=== PATIENT | female | born 1940 | race Caucasian/White ===

== ENCOUNTER 2021-02-03 12:56 | Inpatient (IN) | payer MEDICARE, OTHER, SELFPAY ==
[2021-02-03] VITALS (46 sets, daily range): BP systolic 101–172; BP diastolic 45–108; PULSE 57–75; RESP 12–23; TEMP 36.5–36.7; O2SAT 92–99
--- NOTE | 2021-02-03 13:30 | RT.EKG_ITS ---
APPROVED REPORT Exam: Resting ECG Reason for Exam: weakness Patient Location: E HR:64 bpm ECG Measurements Heart Rate 64 AXIS UT 202 P 45 QRSd 94 QRS 21 QT 430 T 72 QTc 442 Conclusion Sinus rhythm...normal P axis, V-rate 60- 99 Atrial premature complex...SV complex w/ short R-R interval
--- NOTE | 2021-02-03 13:30 | DI.CT_ITS ---
Exam(s) CT HEAD WO EXAM: CT BRAIN NECK CTA CLINICAL HISTORY: hx of cva, weakness TECHNIQUE: COMPARISON: No exams were available for comparison FINDINGS: Noncontrast cranial CT was performed. No prior scans available for comparison. There is moderate to severe generalized cerebral atrophy and there are areas of encephalomalacia right frontal right temp oral and left frontal lobe consistent with old infarcts. There is an area of apparent acute hemorrhage with somewhat irregular margins which lies to the left of the falx in the white matter superior to the left lateral ventricle, this measures 33 x 17 millime ters in diameter transaxial imaging. There is slight associated mass effect. No intraventricular he morrhage seen. No additional areas of intracranial hemorrhage. The orbital and temporal bone structures appear intact. Visualized mastoid air cells and paranasal s inuses appear clear. IMPRESSION: Findings consistent with acute parenchymal hemorrhage located in white matter superior to left latera l ventricle. This measures 33 x 17 millimeters in diameter on transaxial imaging. Slight mass effec t noted. No intraventricular bleed. RADIATION DOSE DELIVERED: Total DLP CTDIvol RADIATION OPTIMIZATION: All CT scans at this facility use at least one of these dose optimization te chniques: automated exposure control; mA and/or kV adjustment per patient size (includes targeted exa ms where dose is matched to clinical indication); or iterative reconstruction.
[2021-02-03 13:56] LABS: Abs Immature Grans 0.05 10^3/uL (0.0-0.06); Absolute Basophil Count 0.07 10^3/uL (0.0-0.2); Absolute Eosinophil Count 0.25 10^3/uL (0.0-0.7); Absolute Lymphocyte Count 1.49 10^3/uL (1.2-3.4); Absolute Monocyte Count 0.66 10^3/uL (0.1-0.8); Basophils % 0.8; HCT 39.3 % (36.0-46.0); HGB 12.8 g/dL (11.2-15.7); Immature Grans % 0.6; Lactate 1.1 mmol/L (0.6-1.4); Lymphocytes % 17.7; MCH 31.6 pg (27.0-33.0); MCHC 32.6 % (32.0-36.0); MPV 9.2 fL (8.0-11.0); Monocytes % 7.8; Neutrophils % 70.1; Nucleated RBC 0 %; Platelet Count 236 10^3/uL (130-400); RBC 4.05 10^6/uL (3.93-5.22); RDW 14.6 % (11.7-14.6); RDW-SD 52.4 fL; WBC 8.42 10^3/uL (4.4-10.8)
--- NOTE | 2021-02-03 14:09 | ED.GENADUL_ITS ---
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 Vazquez and patient noted to have an intraparenchymal hemorrhage with mass-effect Unclear as to acuity of onset, however it sounds like last evening around 8:00, has been noted that she was more weak, slightly more confused, and her speech was more delayed It sounds like she did have a fall 2 weeks ago, mention this at time of reevaluation but has not had any additional falls since that time and she does report that she did hit her head without fall and was not evaluated at that time She was on anticoagulation a year ago but her medication was discontinued secondary to recurrent hemorrhagic stroke Phone call placed to [phone], and he stated that they were capacity but would discuss and return phone call, and they recommended calling [facility] at this time [facility] returned phone call at 1630, I spoke with who is considering capacity and reviewing images and will return phone calls Discussed with and patient and they prefer that she has full CODE STATUS at this time Neurochecks were performed approximately every half an hour EKG results were reviewed with my attending physician, please see his interpretation Unfortunately [facility] has not yet to receive the CT images to review, they were resubmitted at 1635 The case will be signed out to Eli Joseph pending return phone call from [facility] and transfer for intraparenchymal hemorrhage to left lateral ventricle Her blood pressure and neuro exam is stable at time of reevaluation No seizure activity has been observed throughout this evaluation Medical Records Medical records reviewed: Yes I reviewed the patient's medical records. Lab Data Lab results reviewed: Yes I reviewed the patient's lab results. ECG Data Prior ECG tracings: available for review <JULISA Munoz - Last Filed: 02/03/21 22:49> Care transitioned to myself from Roro Antony PA-C with disposition pending. Please see her initial note regarding history, presentation and exam. In brief, patient is a pleasant 80-year-old female presenting today with hemorrhagic stroke. Patient has been having difficulty ambulating, diffuse weakness, listing to the right, slow speech since last night. Patient has had 2 hemorrhagic strokes historically. Patient is not anticoagulated. On exam, patient appears acutely ill. She is listing to the right. reports that she has been listing in this manner since last night. Patient is diffusely weak. Does not want to use the right upper extremity much but is able to squeeze my hand to some degree. She does follow me well. Her speech seems fairly clear but feels that this is slower than typical. He is not able to describe her at baseline neurologic deficits but does report that there are deficit since her initial hemorrhagic strokes. At the time I assumed care, awaiting consultation from tertiary care center. Patient already received Keppra, head of bed elevated Dr. Melani Sauceda with neurosurgery would get repeat CT imaging in the AM, continue with repeat neuro checks. She advises that [facility] [place] does not have capacity at this time. Dr. Kennedy with neurology recommended BP control. Questioning the multiple bleeds and source of them. She advises that they do not have capacity. She feels that patient needs more evaluation. They have had patients accepted from [facility] but most places are at capacity. BP goal 160/80 would be max. Labetalol, nicardipine. She does not recommend mannitol, steroids or other interventions at htis time. Recommends tertiary care. Consulted with Dr. Ward with neurology. Advised may be amyloid or other angiopathy. Only accepting emergent cases currently. Advises that as she does not require any surgical intervention, airway management, patient does not require transfer. She recommends repeat scan 6-12 hours or if exam worsens. Repeat imaging in one hour and recheck of neurologic exam. Recommended next imaging be CTA. In the future, evaluate with MRI to find underlying cause of bleeding. Wwe discussed the limitations of our facility, they advised ICU admission here as there is no emergent intervention warranted. Spoke with family, they advised that they would like full interventions done. Discussed disposition options. Given recommendations of specialists, will admit here for continued BP management, neuro checks. Consulted with Dr. Francois who agrees to admission. Repeat imaging obtained as recommended by [facility], pushed to their neurology team. : ANTERIOR CIRCULATION: Right internal carotid artery: Unremarkable. Intracranial segment is patent with no significant stenosis. No aneurysm. Right middle cerebral artery: Unremarkable. No occlusion or significant stenosis. No aneurysm. Right anterior cerebral artery: Unremarkable. No occlusion or significant stenosis. No aneurysm. Left internal carotid artery: Unremarkable. Intracranial segment is patent with no significant stenosis. No aneurysm. Left middle cerebral artery: Unremarkable. No occlusion or significant stenosis. No aneurysm. Left anterior cerebral artery: Unremarkable. No occlusion or significant stenosis. No aneurysm. POSTERIOR CIRCULATION: Right vertebral artery: Unremarkable. No occlusion or significant stenosis. No aneurysm. Left vertebral artery: Unremarkable. No occlusion or significant stenosis. No aneurysm. Basilar artery: Unremarkable. No occlusion or significant stenosis. No aneurysm. Right posterior cerebral artery: origin of the right posterior cerebral artery is a common developmental variant and there is no occlusion or significant stenosis. No aneurysm. Left posterior cerebral artery: Unremarkable. No occlusion or significant stenosis. No aneurysm. IMPRESSION: No large vessel stenosis or occlusion detected involving the major branches of the anterior or posterior intracranial circulation. FINDINGS: Right common carotid artery: No stenosis. No dissection or occlusion. Right internal carotid artery: No stenosis of the extracranial segment. No dissection or occlusion. Right external carotid artery: No occlusion or stenosis of the origin. Left common carotid artery: No stenosis. No dissection or occlusion. Left internal carotid artery: No stenosis of the extracranial segment. No dissection or occlusion. Left external carotid artery: No occlusion or stenosis of the origin. Right vertebral artery: No stenosis. No dissection or occlusion. Left vertebral artery: No stenosis. No dissection or occlusion. Soft tissues: Normal. No significant soft tissue swelling. Bones/joints: No acute fracture. IMPRESSION: No evidence of 50% or greater stenosis involving the cervical segments of the right or left internal carotid arteries by NASCET criteria. Have requested addendum to compare bleed on noncon imaging. Addendum created by Glenn Zimmerman MD on 02/03/2021 10:35 PM Eastern Time ([place] & [place]): Cerebral atrophy with cystic encephalomalacia at the right frontal pole and additional chronic ischemic changes seen throughout both frontal lobes is similar in appearance. Acute/recent hemorrhage seen in the region of the left cingulate gyrus along the medial margin of the posterior left frontal lobe just above the corpus callosum again measures approximately 29 mm in maximal crosssectional dimension on axial images and is similar in appearance. No new sites of intracranial hemorrhage are detected. <[place] Jim MD - Last Filed: 02/06/21 11:56> Patient seen, examined, and discussed with JULISA Joseph. I agree with treatment plan as discussed/documented. HPI <JULISA Almeida - Last Filed: 02/04/21 08:16> General Mode of arrival: ambulatory . Date/Time Provider Initiated Documentation: 02/03/21 13:02 . Limitations to Documentation: no limitations and altered mental status . Information obtained by: patient . HPI Narrative: This 80-year-old female with history of atrial fibrillation, coronary artery disease, CVA, diabetes, dementia presents with report of increasing weakness. Patient has reportedly been weak for the past several days. He states last evening after having a large meal, patient was more weak and was sitting slightly to the right. He states that he initially thought it was because her blood sugar was elevated at 300, [facility] morning she had persistent symptoms and her blood sugar was 220. He denies any unilateral weakness. He states that his speech is slightly more slurred. He states she is at her baseline mentation. He denies any falls or injuries. They did just drive [place]country from the [place] to visit family and states that he got out of the car frequently. Denies known seizure. Did have a recent urinary tract infection, approximately 1.5 months ago. Related Data Home Medications Medication Instructions Recorded Confirmed amiodarone 200 mg PO DAILY 02/03/21 02/03/21 aspirin 81 mg PO DAILY 02/03/21 02/03/21 atorvastatin 60 mg PO DAILY 02/03/21 02/03/21 carbidopa-levodopa 1 tab PO BID 02/03/21 02/03/21 cyanocobalamin (vitamin B-12) 2,000 mcg PO DAILY 02/03/21 02/03/21 glimepiride 0.5 mg PO DAILY 02/03/21 02/03/21 levetiracetam [Keppra] 500 mg PO BID 02/03/21 02/03/21 metformin 500 mg PO BID 02/03/21 02/03/21 mirtazapine 7.5 mg PO DAILY 02/03/21 02/03/21 nortriptyline 10 mg PO PRN PRN 02/03/21 02/03/21 sertraline 100 mg PO DAILY 02/03/21 02/03/21 Allergies Allergy/AdvReac Type Severity Reaction Status Date / Time codeine Allergy Unverified 02/03/21 13:19 General Stated Complaint: CVA/TIA CRYSTAL: 2 Review of Systems <JULISA Almeida Last Filed: 02/04/21 08:16> All systems reviewed & are unremarkable except as noted in HPI and below PFSH <JULISA Almeida - Last Filed: 02/04/21 08:16> Medical History (Updated 02/05/21 @ 17:17 by Irina Vasquez NP) Asthma Diabetes mellitus Hemorrhagic stroke Palliative care patient Parkinson disease Social History Smoking/Tobacco Use Status: Never Smoking risk assessment performed?: Yes Alcohol Intake: never Substance use type: does not use Exam <JULISA Almeida Last Filed: 02/04/21 08:16> Const General: cooperative and no acute distress HENMT Head: normal to inspection Other: uvula midline, maintaining secretions Eyes Pupils: PERRL Other: unable to assess peripheral gandhi\EOM mental status Chest Chest: normal inspection of the chest Resp Effort & Inspection: normal respiratory effort and able to speak in complete sentences Cardio Rate: regular rate Rhythm: regular rhythm GI Inspection: normal to inspection Auscultation: normal bowel sounds Other: non-tender, sensation intact Skin General skin exam: no rashes or lesions noted Neuro General: patient alert, CN's II-XI intact bilaterally and patient confused Cranial Nerves: CN's II-XI intact bilaterally and PERRL Speech: other Sensory Exam: no sensory deficits noted Other: Strength 3 out of 5 to left upper extremity and left lower extremity, strength 4 out of 5 to right upper extremity, right lower extremity, sensation intact to bilateral upper and lower extremities Extrem General: normal to inspection Psych Appearance: well kempt Speech and Movement: delayed speech Course <JULISA Almeida Last Filed: 02/04/21 08:16> Vital Signs Vital signs: Vital Signs Temperature 36.7 C 02/03/21 13:13 Pulse 70 02/03/21 13:13 Respiratory Rate 16 02/03/21 13:13 Blood Pressure 139/84 02/03/21 13:13 Pulse Oximetry 96 02/03/21 13:13 Temperature 36.7 C 02/03/21 13:13 Temperature Source Skin 02/03/21 13:13 Pulse 57 L 02/03/21 14:04 Pulse 63 02/03/21 14:04 Respiratory Rate 14 02/03/21 14:04 Respiratory Effort Non-Labored 02/03/21 13:56 Respiratory Depth Normal 02/03/21 13:56 Respiratory Pattern Normal 02/03/21 13:56 Blood Pressure 153/51 H 02/03/21 14:04 Blood Pressure Mean 78 02/03/21 14:04 Blood Pressure Position Sitting 02/03/21 13:13 Pulse Oximetry 99 02/03/21 14:04 Oxygen Delivery Method Room Air 02/03/21 13:13 Oxygen Flow Rate 0 02/03/21 13:13 Pain Level 0 02/03/21 13:13 Comment 02/03/21 13:13 Lab/Test Results Lab/Test Results: Laboratory Tests Range/Units 02/03/21 02/03/21 13:45 13:45 WBC (4.4-10.8) 10^3/uL 8.42 RBC (3.93-5.22) 10^6/uL 4.05 Hgb (11.2-15.7) g/dL 12.8 Hct (36.0-46.0) % 39.3 MCV (80-95) fL 97.0 H MCH (27.0-33.0) pg 31.6 MCHC (32.0-36.0) % 32.6 RDW (11.7-14.6) % 14.6 Plt Count (130-400) 10^3/uL 236 MPV (8.0-11.0) fL 9.2 Immature Gran % 0.6 Neutrophils % 70.1 Lymphocytes % 17.7 Monocytes % 7.8 Eosinophils % 3.0 Basophils % 0.8 Nucleated RBC % % 0 Absolute Neutrophils (1.2-6.7) 10^3/uL 5.90 Absolute Lymphocytes (1.2-3.4) 10^3/uL 1.49 Absolute Monocytes (0.1-0.8) 10^3/uL 0.66 Absolute Eosinophils (0.0-0.7) 10^3/uL 0.25 Absolute Basophils (0.0-0.2) 10^3/uL 0.07 VBG Lactate (0.6-1.4) mmol/L 1.1 Critical Care Time <JULISA Almeida - Last Filed: 02/04/21 08:16> Critical Care Time Critical Care Time: Yes Total Critical Care Time: 75 Attestation: Telemetry monitoring, IV antiepileptic, frequent neurological checks, neurology consultation, radiology consultation, likely transfer to higher level of care, blood pressure monitoring Sign Out <JULISA Almeida - Last Filed: 02/04/21 08:16> Sign Out Data: Sign Out Comment: signed out to Eli RUANO pending [facility] return call for dispo Last updated by Roro Antony PA at 02/03/21 17:05
[2021-02-03 14:14] LABS: ALT 55 U/L (14-59); AST 26 U/L (15-37); Albumin 3.9 g/dL (3.4-5.0); Alkaline Phosphatase 96 U/L (46-116); Anion Gap 7.9 mmol/L (3-11); BUN 29 mg/dL (7-18); Bilirubin, Total 0.3 mg/dL (0.2-1.0); CO2 29.1 mmol/L (21.0-32.0); CREATININE 1.2 mg/dL (0.55-1.02); Calcium 9.5 mg/dL (8.5-10.1); Chloride 106 mmol/L (98-107); Estimated GFR 43.12 (mL/min/1.73m2); Glucose 192 mg/dL (74-106); Magnesium 1.8 mg/dL (1.8-2.4); Potassium 4.6 mmol/L (3.5-5.1); Sodium 143 mmol/L (136-145); Total Protein 7.9 g/dL (6.4-8.2); Troponin I < 0.05 ng/mL (<0.06)
[2021-02-03 14:42] LABS: Bilirubin Negative (Negative); Blood Negative (Negative); Clarity Clear (Clear); Glucose Negative (Negative); Ketones Negative (Negative); Leukocyte Esterase Negative (Negative); Nitrite Negative (Negative); Urobilinogen 0.2 EU/dL (Up TO 0.2); pH 6.5 (5-8)
[2021-02-03] MEDS: Omnipaque 350 MG/ML 100 ML BTL IJ ×2 (14:56→20:24)
[2021-02-03] MEDS: Normal Saline - Diluent 50 ML VIAL IV ×2 (14:58→20:50)
[2021-02-03] MEDS: Normal Saline Flush 10 ML SYR IVP (14:58)
--- NOTE | 2021-02-03 15:25 | DI.RAD_ITS ---
Exam(s) XR CHEST 2V PA LATERAL EXAM: XR CHEST 2V PA LATERAL CLINICAL HISTORY: weakness TECHNIQUE: 2D digital imaging was performed. COMPARISON: No exams were available for comparison FINDINGS: The heart is not enlarged. The lungs are clear and well expanded. No pleural effusion seen. Mediastin al contours appear intact. IMPRESSION: Normal chest. RADIATION DOSE DELIVERED: Total DLP
[2021-02-03] MEDS: levETIRAcetam 500 MG in Normal Saline 100 ML 400 MG IVPB (15:28)
--- NOTE | 2021-02-03 17:39 | NUR.NOTE ---
pt seen in bed aaox3, no signs of pain or distress, denies pain, VS WNL, at bedside, neuro signs remain baseline, pt repositioned for comfort, all needs attended, call [place] within reach, will continue to monitor and maitnain safety.
--- NOTE | 2021-02-03 18:45 | DI.CT_ITS ---
Exam(s) CT BRAIN NECK CTA EXAM: CT BRAIN NECK CTA CLINICAL HISTORY: hemorrhagic stroke. TECHNIQUE: Imaging Protocol: Axial CT angiography was performed with multi-slice acquisition and mu lti-planar and/or 3D reconstructions. CONTRAST MATERIAL: Intravenous: Omnipaque 350 Contrast volume:structured data in ml COMPARISON: CT CT HEAD WO from 02/03/2021 FINDINGS: CTA Neck W: Aortic arch anatomy: The aortic arch anatomy is conventional. Anterior circulation: No evidence of significant stenosis at the origin of the great vessels off the aortic arch. Both common carotid arteries ascend with normal luminal diameters. There is minimal if any significa nt plaque at the right carotid bifurcation and proximal right ICA. Mild calcified plaque seen in lef t carotid bulb-proximal left ICA. Stenosis estimated to be less than 20 percent both sides. Above t his level both internal carotid arteries are demonstrated be patent in the upper neck although the le ft is somewhat tortuous prior to entering the skull base. Posterior circulation: Both vertebral arteries originated conventional fashion off of the subclavian arteries. No evidence of significant stenosis in the subclavian arteries proximally to the vertebral artery takeoff points. The left vertebral artery is dominant. Both vertebral arteries ascend without evidence of intralumin al thrombus nor dissection within the foramen transversarium and both contribute to the formation of the basilar artery at the skull base, the left being dominant. There is a small area of mural calcif ication in the left vertebral artery at the skull base but without tight stenosis at this level. CTA Brain W: Anterior circulation: Both intracavernous internal carotid arteries are heavily calcified but not included. Calcification extends into the lower aspect of the supraclinoid aspect of these vessels. No tight stenosis at nor aneurysms at these levels. Both middle cerebral arteries are demonstrated be patent out to the sylvi an fissure branches.. Both A1 segments are patent as are the anterior cerebral arteries and pericall osal arteries. There is no evidence of aneurysm at the level of the anterior communicating artery. Posterior circulation: Basilar artery is formed predominately by the dominant left vertebral artery but also by contribution of the right vertebral artery at the skull base. The basilar artery is sends relatively midline wit hout intraluminal thrombus. Distally gives off patent bilateral superior cerebellar arteries. Above this level it terminates as patent left posterior cerebral artery. The right posterior cerebral art miguelina exhibits persistent circulation being fed by a posterior communicating artery on the right side of the [id number]. There is no evidence of aneurysm at the tip of the basilar artery. CT BRAIN: Area of abnormal hyperdensity consistent with acute hemorrhage seen in the left cingulate gyrus along the medial margin of the posterior left frontal lobe just above the corpus callosum, contiguous with the falx cerebral I. This intra-axial hemorrhage measures approximately 3.2 cm AP by 1.6 cm wide by 1.5 cm craniocaudal and exhibits some mild surrounding edema. This acute hemorrhage is superimposed upon setting of abundant periventricular white matter disease w hich is more prominent on the right side and there is most probably been prior CVA in the territory o f the right middle cerebral artery. There is no evidence of prior significant event in the cerebella r hemispheres nor within the hudson and midbrain and thalami. IMPRESSION: 1. Left frontal lobe interacts hemorrhage, as described above. Mild surrounding edema. 2. No evidence of significant stenosis within the carotid arteries in the neck and the vertebral art eries are also patent. No evidence of intraluminal thrombus within these vessels in the head and als o no evidence of intracranial aneurysm. 3. Close follow-up recommended. RADIATION DOSE DELIVERED: 1,900.66mGy.cm Total DLP DATA REPOSITORY: All CT scans at this facility are submitted to the National Radiology Data Registry (NRDR) Dose Index Registry (DIR) with the [employer] ([employer]). RADIATION OPTIMIZATION: All CT scans at this facility use at least one of these dose optimization te chniques: automated exposure control; mA and/or kV adjustment per patient size (includes targeted exa ms where dose is matched to clinical indication); or iterative reconstruction.
--- NOTE | 2021-02-03 19:16 | NUR.NOTE ---
swallow eval performed. 5 ml, 10 ml, 30 ml. pt swallowed without difficulty = pass. pt able to track finger to nose with lt hand. unable to lift rt shoulder, but able to touch my finger, then her nose with lt hand in multiple locations. pt remains awake and alert.:
[2021-02-03 19:32] LABS: Troponin I < 0.05 ng/mL (<0.06)
--- NOTE | 2021-02-03 19:41 | NUR.NOTE ---
pt seen in bed sitting up eating with assistance from , ate two cookies and half of an oat bar, no issues with swallowing at present, will continue to monitor and maintain safety.
--- NOTE | 2021-02-03 21:03 | DI.VRAD_ITS ---
Addendum created by Glenn Zimmerman MD on 02/03/2021 10:35:58 PM EDT: Cerebral atrophy with cystic encephalomalacia at the right frontal pole and additional chronic ischemic changes seen throughout both frontal lobes is similar in appearance. Acute/recent hemorrhage seen in the region of the left cingulate gyrus along the medial margin of the posterior left frontal lobe just above the corpus callosum again measures approximately 29 mm in maximal cross-sectional dimension on axial images and is similar in appearance. No new sites of intracranial hemorrhage are detected. Initial report created on 02/03/2021 9:03:38 PM EDT: PROCEDURE INFORMATION: Exam: CT Angiography Head With Contrast, Arteriography Exam date and time: 02/03/2021 6:59 PM Age: 80 years old Clinical indication: Other: Hemorrhagic stroke TECHNIQUE: Imaging protocol: Computed tomography angiography of the head with contrast. Exam focused on the arteries. 3D rendering (Not supervised by radiologist): MIP and/or 3D reconstructed images were created by the technologist. Contrast material: OMNIPAQUE 350; Contrast volume: 100 ml; Contrast route: INTRAVENOUS (IV); COMPARISON: CT HEAD WO 02/03/2021 2:52 PM FINDINGS: ANTERIOR CIRCULATION: Right internal carotid artery: Unremarkable. Intracranial segment is patent with no significant stenosis. No aneurysm. Right middle cerebral artery: Unremarkable. No occlusion or significant stenosis. No aneurysm. Right anterior cerebral artery: Unremarkable. No occlusion or significant stenosis. No aneurysm. Left internal carotid artery: Unremarkable. Intracranial segment is patent with no significant stenosis. No aneurysm. Left middle cerebral artery: Unremarkable. No occlusion or significant stenosis. No aneurysm. Left anterior cerebral artery: Unremarkable. No occlusion or significant stenosis. No aneurysm. POSTERIOR CIRCULATION: Right vertebral artery: Unremarkable. No occlusion or significant stenosis. No aneurysm. Left vertebral artery: Unremarkable. No occlusion or significant stenosis. No aneurysm. Basilar artery: Unremarkable. No occlusion or significant stenosis. No aneurysm. Right posterior cerebral artery: origin of the right posterior cerebral artery is a common developmental variant and there is no occlusion or significant stenosis. No aneurysm. Left posterior cerebral artery: Unremarkable. No occlusion or significant stenosis. No aneurysm. IMPRESSION: No large vessel stenosis or occlusion detected involving the major branches of the anterior or posterior intracranial circulation. PROCEDURE INFORMATION: Exam: CT Angiography Neck With Contrast Exam date and time: 02/03/2021 6:59 PM Age: 80 years old Clinical indication: Other: Hemorrhagic stroke TECHNIQUE: Imaging protocol: Computed tomography angiography of the neck with contrast. 3D rendering (Not supervised by radiologist): MIP and/or 3D reconstructed images were created by the technologist. Radiation optimization: All CT scans at this facility use at least one of these dose optimization techniques: automated exposure control; mA and/or kV adjustment per patient size (includes targeted exams where dose is matched to clinical indication); or iterative reconstruction. Contrast material: OMNIPAQUE 350; Contrast volume: 100 ml; Contrast route: INTRAVENOUS (IV); COMPARISON: CT HEAD WO 02/03/2021 2:52 PM FINDINGS: Right common carotid artery: No stenosis. No dissection or occlusion. Right internal carotid artery: No stenosis of the extracranial segment. No dissection or occlusion. Right external carotid artery: No occlusion or stenosis of the origin. Left common carotid artery: No stenosis. No dissection or occlusion. Left internal carotid artery: No stenosis of the extracranial segment. No dissection or occlusion. Left external carotid artery: No occlusion or stenosis of the origin. Right vertebral artery: No stenosis. No dissection or occlusion. Left vertebral artery: No stenosis. No dissection or occlusion. Soft tissues: Normal. No significant soft tissue swelling. Bones/joints: No acute fracture. IMPRESSION: No evidence of 50% or greater stenosis involving the cervical segments of the right or left internal carotid arteries by NASCET criteria. REFERENCES: NASCET CRITERIA. The degree of internal carotid artery stenosis is based on NASCET criteria. Normal is no stenosis. Mild is less than 50% stenosis. Moderate is 50-69% stenosis. Severe is 70% to 99% stenosis. Total occlusion is no detectable patent lumen. Dictated and Authenticated by: Glenn Zimmerman MD. Ordering:LEONCIO Benitez MD
--- NOTE | 2021-02-03 21:51 | HPE_ITS ---
Date of service: 02/03/21 Time of Service: 21:51 Assessment and Plan Assessment and plan (1) Hemorrhagic stroke: Status: Acute Assessment and plan: She will have frequent neurologic checks. There is a bit of food in her mouth when I examined her and I will only give her clear liquids for the present time. We will check a repeat CT scan of the head tomorrow. She will be continued on her Keppra but I have held her diabetic medicines and her psychiatric medicines for now. I will continue her Sinemet. History of Present Illness History of Present Illness Chief Complaint: weakness Narrative: This 80-year-old female presented with weakness on the right side. She has had 2 previous hemorrhagic strokes ever treated in [facility]. The first stroke caused her to have weakness on the left side. Her stated that Botox was used to treat this stroke with some benefit. She had another hemorrhagic stroke which caused her to have difficulty concentrating and because other mental status changes. Her said she was treated again with Botox without any change after the second stroke. She and her drove here from [place] to attend a 50th reunion of the [employer] and were planning on returning this morning. Last night after having dinner and watching a ball game the noted that she was leaning to the right when he helped her to the bathroom. She has had chronic urinary incontinence dating from the previous stroke. She had a slight headache last night and he gave her acetaminophen with some relief. This morning she was still leaning to the right and did not feel well and was having trouble sitting up in bed. He checked her sugar and it was over 300 and because of her persistent symptoms brought her to the hospital. The right-sided weakness was persisting. She chronically has some dribbling from the left side of her mouth from her previous stroke. Her headache today is improved. Her stated that she did fall and hit her head about 2.5 to 3 weeks ago but did not notice any neurologic change at that time. She was evaluated in the emergency department here. Attempts were made to transfer her to a tertiary care center at [facility] or [facility] but they cannot take her because of bed limitations and they did not feel she needed any acute intervention. They did recommend checking another CT scan tomorrow and keeping the bed elevated 30 degrees. Review of Systems Constitutional Constitutional: Denies body ache(s), Denies chills, Denies fever(s) and Reports weakness Eyes Eyes: Denies change in vision Cardiovascular Cardiovascular: Denies chest pain, Denies rapid heart rate, Denies palpitations and Denies dyspnea Respiratory Respiratory: Denies cough and Denies dyspnea Gastrointestinal Gastrointestinal: Denies abdominal pain, Denies fecal incontinence, Denies nausea and Denies vomiting Genitourinary Genitourinary: Reports urinary incontinence Musculoskeletal Musculoskeletal: Reports abnormal gait Neurologic Neurologic: Reports abnormal gait, Reports memory loss, Denies sensory deficit and Reports weakness Psychiatric Psychiatric: Reports memory loss Endocrine Endocrine: Denies palpitations [facility] Medical History (Updated 02/03/21 @ 22:15 by Gabriel Francois MD) Asthma Diabetes mellitus Hemorrhagic stroke Parkinson disease Social History Smoking/Tobacco Use Status: Never Smoking risk assessment performed?: Yes Alcohol Intake: never Substance use type: does not use Meds Allergies and Home Medications Allergies Allergy/AdvReac Type Severity Reaction Status Date / Time codeine Allergy Unverified 02/03/21 13:19 Home Medications Medication Instructions Recorded Confirmed Type amiodarone 200 mg PO DAILY 02/03/21 02/03/21 History aspirin 81 mg PO DAILY 02/03/21 02/03/21 History atorvastatin 60 mg PO DAILY 02/03/21 02/03/21 History carbidopa-levodopa 1 tab PO BID 02/03/21 02/03/21 History cyanocobalamin (vitamin B-12) 2,000 mcg PO DAILY 02/03/21 02/03/21 History glimepiride 0.5 mg PO DAILY 02/03/21 02/03/21 History levetiracetam [Keppra] 500 mg PO BID 02/03/21 02/03/21 History metformin 500 mg PO BID 02/03/21 02/03/21 History mirtazapine 7.5 mg PO DAILY 02/03/21 02/03/21 History nortriptyline 10 mg PO PRN PRN 02/03/21 02/03/21 History sertraline 100 mg PO DAILY 02/03/21 02/03/21 History Exam Const General: cooperative and frail appearing Nutritional Appearance: well nourished Orientation: alert and awake Other: She thought it was February 03 something. She thought it was but is actually Emily. She can tell me the current and last president but could not remember the presidents before that. 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 She has some drift of outstretched hands on the right. Rapid alternating movements of fingers is slow but normal. It is difficult to test elbow extension bilaterally. She has moderate weakness of her right knee flexion and mild weakness of left knee flexion. I cannot get her to dorsiflex her ankles but plantar flexion is normal bilaterally. Hip flexion is +3 on the left and +2 on the right. Quadricep reflexes are equal bilaterally. Achilles reflexes are not detectable left or right. She has intact sensation of her hands and feet. Speech appears normal although it is not spontaneous. Extrem General: normal to inspection, calf tenderness and no edema Results Labs Result diagrams: 02/03/21 13:45 02/03/21 13:45 Labs: Laboratory Results - last 24 hr 02/03/21 02/03/21 02/03/21 13:45 13:45 13:45 WBC 8.42 RBC 4.05 Hgb 12.8 Hct 39.3 MCV 97.0 H MCH 31.6 MCHC 32.6 RDW 14.6 Plt Count 236 MPV 9.2 Immature Gran % 0.6 Neutrophils % 70.1 Lymphocytes % 17.7 Monocytes % 7.8 Eosinophils % 3.0 Basophils % 0.8 Nucleated RBC % 0 Absolute Neutrophils 5.90 Absolute Lymphocytes 1.49 Absolute Monocytes 0.66 Absolute Eosinophils 0.25 Absolute Basophils 0.07 VBG Lactate 1.1 Sodium 143 Potassium 4.6 Chloride 106 Carbon Dioxide 29.1 Anion Gap 7.9 BUN 29 H Creatinine 1.2 H Estimated GFR/1.73 m2 43.12 Glucose 192 H Calcium 9.5 Magnesium 1.8 Total Bilirubin 0.3 AST 26 ALT 55 Alkaline Phosphatase 96 Troponin I < 0.05 Total Protein 7.9 Albumin 3.9 Urine Color Urine Clarity Urine pH Ur Specific [place] Urine Protein Urine Ketones Urine Blood Urine Nitrite Urine Bilirubin Urine Urobilinogen Ur Leukocyte Esterase Urine Glucose 02/03/21 02/03/21 14:15 19:07 WBC RBC Hgb Hct MCV MCH MCHC RDW Plt Count MPV Immature Gran % Neutrophils % Lymphocytes % Monocytes % Eosinophils % Basophils % Nucleated RBC % Absolute Neutrophils Absolute Lymphocytes Absolute Monocytes Absolute Eosinophils Absolute Basophils VBG Lactate Sodium Potassium Chloride Carbon Dioxide Anion Gap BUN Creatinine Estimated GFR/1.73 m2 Glucose Calcium Magnesium Total Bilirubin AST ALT Alkaline Phosphatase Troponin I < 0.05 Total Protein Albumin Urine Color Yellow Urine Clarity Clear Urine pH 6.5 Ur Specific [place] 1.020 Urine Protein Negative Urine Ketones Negative Urine Blood Negative Urine Nitrite Negative Urine Bilirubin Negative Urine Urobilinogen 0.2 Ur Leukocyte Esterase Negative Urine Glucose Negative Last Vital Signs Temp 36.7 C 02/03/21 13:13 Pulse 70 02/03/21 20:01 Resp 18 02/03/21 21:00 BP 101/83 02/03/21 20:01 Pulse Ox 95 02/03/21 21:00
[2021-02-03 23:54] LABS: Source Nasal/Nares
[2021-02-04] VITALS (37 sets, daily range): BP systolic 109–156; BP diastolic 50–94; PULSE 60–88; RESP 12–25; TEMP 36.2–37.1; O2SAT 94–99
--- NOTE | 2021-02-04 | DI.MRI_ITS ---
Exam(s) MR BRAIN WO EXAM: MR BRAIN WO CLINICAL HISTORY: hemorrhage stroke TECHNIQUE: Multiplanar multisequence MRI of the brain was performed. COMPARISON: CT CT HEAD WO from 02/04/[address] HEAD WO from 02/04/2021 FINDINGS: CEREBRAL PARENCHYMA: The high left frontal lobe supra callosal parafalcine hemorrhage exhibits stable size. It is startin g to be come hyperintense on noncontrast T1 images indicating methemoglobin stage. There is also some T1 hyperintensity more anteriorly in the right frontal lobe consistent with subacu te petechial hemorrhage in that area. This is in an area of prior infarction. Also a few mildly hyp erintense gyri seen on the right side just above the sylvian fissure. Prominent FLAIR bright signal abnormality again noted on both sides in the periventricular white sarbjit er, slightly more prominent on the right side. This is consistent with chronic small vessel ischemic changes. There is no significant signal abnormality in the cerebellar hemispheres nor within the po ns and midbrain and thalami. PITUITARY GLAND: No mass nor parasellar abnormality. No obvious abnormality in the cavernous sinuses. FLOW VOIDS: The expected flow void are noted. No evidence of obvious aneurysm nor obvious vascular ma lformation. The left vertebral artery is noted to be dominant. PARANASAL SINUSES: The visualized paranasal sinuses appear unremarkable. No obvious finding ORBITS: No obvious findings. IMPRESSION: High left frontal parafalcine intra-axial hemorrhage, entering subacute phase. This finding is super imposed upon abundant bilateral periventricular white matter ischemic disease. In addition, there is some T1 hyperintensity in other areas of prior infarct more anteriorly in the r ight frontal lobe and on the right side just above the sylvian fissure. Expected flow voids are noted. Please note that this patient underwent CT angiography yesterday even ing which revealed less than 20 percent stenosis at the carotid bifurcation and proximal internal car otid arteries bilaterally and patent intracranial arteries. Also patent posterior circulation with d ominant left vertebral artery. No evidence of intraluminal thrombus nor dissection of the vertebral arteries. DATA REPOSITORY:
[2021-02-04 00:50] LABS: COVID-19 PCR Negative (Negative)
[2021-02-04 04:53] LABS: Abs Immature Grans 0.04 10^3/uL (0.0-0.06); Absolute Basophil Count 0.06 10^3/uL (0.0-0.2); Absolute Eosinophil Count 0.27 10^3/uL (0.0-0.7); Absolute Monocyte Count 0.86 10^3/uL (0.1-0.8); Absolute Neutrophil Count 5.47 10^3/uL (1.2-6.7); Basophils % 0.7; Eosinophils % 3.2; HCT 34.7 % (36.0-46.0); HGB 11.5 g/dL (11.2-15.7); Immature Grans % 0.5; Lymphocytes % 21.2; MCH 31.5 pg (27.0-33.0); MCHC 33.1 % (32.0-36.0); MCV 95.1 fL (80-95); MPV 9.1 fL (8.0-11.0); Monocytes % 10.1; Neutrophils % 64.3; Nucleated RBC 0 %; Platelet Count 220 10^3/uL (130-400); RBC 3.65 10^6/uL (3.93-5.22); RDW 15.1 % (11.7-14.6); RDW-SD 52.2 fL
[2021-02-04 05:14] LABS: Anion Gap 10.4 mmol/L (3-11); BUN 27 mg/dL (7-18); CO2 25.6 mmol/L (21.0-32.0); CREATININE 1.1 mg/dL (0.55-1.02); Calcium 8.8 mg/dL (8.5-10.1); Chloride 107 mmol/L (98-107); Estimated GFR 47.67 (mL/min/1.73m2); Glucose 227 mg/dL (74-106); Potassium 4.2 mmol/L (3.5-5.1); Sodium 143 mmol/L (136-145)
--- NOTE | 2021-02-04 09:19 | PDOC.CMIN ---
- If Service Date Differs Date of service: 02/04/21 Time of Service: 09:19 Care Management Initial Assess REASON FOR HOSPITALIZATION:: hemorrhagic stroke PAST MEDICAL HISTORY/PAST SURGICAL HISTORY:: Medical History. Asthma. Diabetes mellitus. Hemorrhagic stroke. Parkinson disease PREVIOUS FUNCTIONAL STATUS/SOCIAL/FAMILY SUPPORTS:: Sharonda lives in [place] with her , James. They recently travelled to [place] by car to visit family. She is indepedent with ADL's at baseline. CURRENT FUNCTIONAL STATUS:: Sharonda was sitting up in bed when CM met with her. She reported that she and her have been visiting family in [place], and had planned to leave tomorrow, but that will now be delayed. She stated that she expects her to visit this afternoon during visiting hours. Per report, she will be seen by PT today, and will have an MRI and CT today, as well as a Neuro consult. CM will continue to follow. ADVANCE DIRECTIVES:: None on file. Has patient been provided with info about the portal/API?: Yes Did the patient sign up for the portal?: No CODE STATUS:: Full Code INSURANCE COVERAGE / FINANCIAL ISSUES:: [employer] (MCR replacement) CURRENT HOME/COMMUNITY SERVICES/EQUIPMENT:: No known services or equipment. PRIMARY CARE PHYSICIAN:: Not local POTENTIAL DISCHARGE NEEDS:: Evaluations for further needs, follow up appointments. PATIENT/FAMILY EDUCATION NEEDS:: Review discharge instructions regarding activity levels and medications, discussion of self care needs and goals of care. ANTICIPATED BARRIERS TO DISCHARGE:: None identified at this time. TRANSPORTATION:: Via private vehicle by family. PLAN:: Anticipate Sharonda will return home when medically cleared. Her will drive her home via private vehicle. She will follow up with her PCP and discharge plan of care. CM will continue to follow.
[2021-02-04] MEDS: levETIRAcetam 500 MG TAB PO ×2 (09:44→20:04)
[2021-02-04] MEDS: Amiodarone 200 MG TAB PO (09:44)
[2021-02-04] MEDS: Carbidopa 25/Levodopa 100 TAB PO ×2 (09:44→15:46)
--- NOTE | 2021-02-04 10:14 | W.NEUROCONSU ---
Date of service: 02/04/21 Time of Service: 10:15 Assessment and Plan Assessment and plan (1) Hemorrhagic stroke: Status: Acute (2) Generalized weakness: Status: Acute (3) Parkinsonism: Status: Acute (4) Seizure: Status: Acute Assessment and plan: Ms. Allen is an 80 year-old, right-handed woman who was admitted with the following: #1. Left frontal intracerebral hemorrhagic stroke. Manifested by right hemiparesis, mainly in right arm. I am working to get her prior neurological records. I recommend a brain MRI w/o as further work-up. TTE results pending. Please check a lipid panel as well. Continue to hold aspirin - would wait 14-21 days prior to re-starting. Pending LDL, would adjust statin does to avoid very low or high numbers -> goal 50-100. Treat and keep SBP <160 systolic. Needs PT, OT, and ST. Need CM/SW help in coordinating when and how to get her and back to home in [place]. #2. Post-stroke cognitive loss. Unclear what her baseline is. has noted decline in last several months. #3. Post-stroke seizures. Continue levetiracetam 500mg BID. #4. Parkinsons - secondary to prior strokes?? Continue Sinemet. She was unsure of dose or times she took it. For now, would do 25/100mg am and lunchtime. History of Present Illness History of Present Illness Chief Complaint: cerebral hemorrhage Narrative: Handedness: right. HPI: Ms. Allen is an 80 year-old woman from [place], here in [place] for a reunion. She has a history of diabetes and 2 prior hemorrhagic strokes. She is on Keppra s/p what sounds like a history of single prior seizure (post strokes?). She is also on Sinemet for ?Parkinsons. I was able to speak with James her of 6 years (both were previously ; she in fact was to his brother x 52 years). I have also reached out to her PCP's office - Dr. Ankur Acuña - as well as to her former neurologist Dr. Gurwinder Sears (now retired) for more records. Her first stroke was in February 2019 resulting in left hemiparesis. She had a second hemorrhagic stroke in October 2019 (hospitalized x 30 days) which resulted primarily in cognitive loss and dysphagia, though James also mentions generalized weakness. It sounds like she received Botox for post-stroke spasticity, but unclear when that last occurred. She had a few seizures - sound like complex partial per description - in late 2018/early 2019. No seizures that he is aware of since starting levetiracetam. She was started on Sinemet during her second hospitalization for ?Parkinsons. has noted that she has been going downhill in the last 3-4 months, getting weaker and more distracted/cognitive loss. She had a fall 2-3 weeks ago at a rest-stop. She hit her head. No LOC. On night prior to admission 02/02/21, noted that Sharonda was listing to the right. This persisted 02/03/21 am and so he brought her to the ER. She has noted generalized weakness with apparent new RUE weakness. She was found to have an acute intracerebral hemorrhage as below. She was on aspirin 81mg daily which is being held. Initial BPs in 150s and now generally 110s-140s. Work-up: -CTH (02/03/21 at 1504): Acute left posterior frontal hemorrhage at the vertex with some midline shift (~3cm x 1.6cm). Old right frontal, ?left frontal, and ?right fronto-parietal strokes with significant noted encephalomalacia in those areas. I reviewed these images personally and this is my personal interpretation. -CTH with CTA head/neck (02/03/21 at 20:30): stable hemorrhage as above. Absent L PCOMM? No significant stenosis. No aneurysms. I reviewed these images personally and this is my personal interpretation. -TTE: pending. Consults Requesting physician: Gabriel Francois Review of Systems All systems reviewed & are unremarkable except as noted in HPI and below PFSH Medical History (Updated 02/04/21 @ 10:47 by Charline Boyd MD) Asthma Diabetes mellitus Hemorrhagic stroke Parkinson disease Social History Smoking/Tobacco Use Status: Never Smoking risk assessment performed?: Yes Alcohol Intake: never Substance use type: does not use Visit Medication and Allergies Active Medications Generic Name Dose Route Start Last Admin Trade Name Freq PRN Reason Stop Dose Admin Acetaminophen 650 mg 02/03/21 21:42 Acetaminophen 325 Mg Tab PO Q4H PRN PRN Amiodarone HCl 200 mg 08/04/21 08:30 02/04/21 09:44 Amiodarone 200 Mg Tab PO 200 mg DAILY MELISSA Administration Carbidopa/Levodopa 1 tab 02/04/21 08:30 02/04/21 09:44 Carbidopa 25/Levodopa 100 Tab PO 1 tab BID MELISSA Administration Dimethicone/Zinc Oxide 0 gm 02/03/21 21:50 Marisel Protect Cream 142 Gm Tube TP PRN PRN Sodium Chloride 500 mls @ 0 mls/hr 02/03/21 21:42 Saline 500ml Bag IV PRN PRN As Directed IV Miscellaneous Supplies 1 each 02/03/21 21:45 Iv Access IV DIRECTED MELISSA Levetiracetam 500 mg 02/04/21 08:30 02/04/21 09:44 Levetiracetam 500 Mg Tab PO 500 mg BID MELISSA Administration Sodium Chloride 0 ml 02/03/21 21:42 Normal Saline Flush 10 Ml Syr IVP PRN PRN Allergies codeine Allergy (Unverified 02/03/21 13:19) Exam Narrative Exam Narrative: Physical Exam: Gen: Patient of apparent stated age, NAD Head and face: no facial or cranial abnormalities Neck: Supple, no meningismus, no occipital tenderness CV: + S1, S2, RRR, no murmur Resp: CTA B/L Abd: soft, nontender, nondistended Ext: No edema. No clubbing or cyanosis. No bony deformity. Neuro Exam: Language: fluency, naming, repetition, and comprehension intact; Mental Status: AAOx2, current events and, fund of knowledge limited; Speech: mild dysarthria Cranial nerves: Funduscopy: not performed CN II: visual gandhi intact CN III, IV, : extraocular movements intact, no nystagmus, pupils symmetric and reactive to light CN V: face sensation intact to LT and PP CN VII: no facial asymmetry noted CN VIII: hearing intact bilaterally CN IX, X: palate rises symmetrically CN XI: trapezius/SCM 5/5 bilaterally CN XII: protrudes tongue symmetrically Sensory: intact to PP throughout; unable to test other modalities due to cognitive impairment Motor: bulk intact. Bilateral cogwheel rigidity. Diffusely bradykinetic. Fine motor movements absent on right and reduced on left. Unable to test pronator drift. Formal strength testing complicated by bradykinesia and cognitive impairment. Appears 3-4-/5 in RUE, weaker distally. 4- to 4/5 LUE. Unable to lift legs off bed bilaterally - so 2/5 proximally. R ankle dorsiflexion 4/5 and L 4-/5. Reflexes: diffusely hyporeflexic; toes down going bilaterally; Coordination: no obvious ataxia Gait: not tested, unable to ambulate safely at this time Results Last Vital Signs Temp 36.5 C 02/03/21 23:50 Pulse 61 02/04/21 06:01 Resp 17 02/04/21 06:01 BP 111/50 L 02/04/21 06:01 Pulse Ox 97 02/04/21 06:01 Labs Result diagrams: 02/04/21 04:37 02/04/21 04:37 Labs: Laboratory Results - last 24 hr 02/03/21 02/03/21 02/03/21 13:45 13:45 13:45 WBC 8.42 RBC 4.05 Hgb 12.8 Hct 39.3 MCV 97.0 H MCH 31.6 MCHC 32.6 RDW 14.6 Plt Count 236 MPV 9.2 Immature Gran % 0.6 Neutrophils % 70.1 Lymphocytes % 17.7 Monocytes % 7.8 Eosinophils % 3.0 Basophils % 0.8 Nucleated RBC % 0 Absolute Neutrophils 5.90 Absolute Lymphocytes 1.49 Absolute Monocytes 0.66 Absolute Eosinophils 0.25 Absolute Basophils 0.07 VBG Lactate 1.1 Sodium 143 Potassium 4.6 Chloride 106 Carbon Dioxide 29.1 Anion Gap 7.9 BUN 29 H Creatinine 1.2 H Estimated GFR/1.73 m2 43.12 Glucose 192 H Calcium 9.5 Magnesium 1.8 Total Bilirubin 0.3 AST 26 ALT 55 Alkaline Phosphatase 96 Troponin I < 0.05 Total Protein 7.9 Albumin 3.9 Urine Color Urine Clarity Urine pH Ur Specific [place] Urine Protein Urine Ketones Urine Blood Urine Nitrite Urine Bilirubin Urine Urobilinogen Ur Leukocyte Esterase Urine Glucose COVID-19 Source SARS-CoV-2 (PCR) 02/03/21 02/03/21 02/03/21 14:15 19:07 22:58 WBC RBC Hgb Hct MCV MCH MCHC RDW Plt Count MPV Immature Gran % Neutrophils % Lymphocytes % Monocytes % Eosinophils % Basophils % Nucleated RBC % Absolute Neutrophils Absolute Lymphocytes Absolute Monocytes Absolute Eosinophils Absolute Basophils VBG Lactate Sodium Potassium Chloride Carbon Dioxide Anion Gap BUN Creatinine Estimated GFR/1.73 m2 Glucose Calcium Magnesium Total Bilirubin AST ALT Alkaline Phosphatase Troponin I < 0.05 Total Protein Albumin Urine Color Yellow Urine Clarity Clear Urine pH 6.5 Ur Specific [place] 1.020 Urine Protein Negative Urine Ketones Negative Urine Blood Negative Urine Nitrite Negative Urine Bilirubin Negative Urine Urobilinogen 0.2 Ur Leukocyte Esterase Negative Urine Glucose Negative COVID-19 Source Nasal/Nares SARS-CoV-2 (PCR) Negative 02/04/21 02/04/21 04:37 04:37 WBC 8.50 RBC 3.65 L Hgb 11.5 Hct 34.7 L MCV 95.1 H MCH 31.5 MCHC 33.1 RDW 15.1 H Plt Count 220 MPV 9.1 Immature Gran % 0.5 Neutrophils % 64.3 Lymphocytes % 21.2 Monocytes % 10.1 Eosinophils % 3.2 Basophils % 0.7 Nucleated RBC % 0 Absolute Neutrophils 5.47 Absolute Lymphocytes 1.80 Absolute Monocytes 0.86 H Absolute Eosinophils 0.27 Absolute Basophils 0.06 VBG Lactate Sodium 143 Potassium 4.2 Chloride 107 Carbon Dioxide 25.6 Anion Gap 10.4 BUN 27 H Creatinine 1.1 H Estimated GFR/1.73 m2 47.67 Glucose 227 H Calcium 8.8 Magnesium Total Bilirubin AST ALT Alkaline Phosphatase Troponin I Total Protein Albumin Urine Color Urine Clarity Urine pH Ur Specific [place] Urine Protein Urine Ketones Urine Blood Urine Nitrite Urine Bilirubin Urine Urobilinogen Ur Leukocyte Esterase Urine Glucose COVID-19 Source SARS-CoV-2 (PCR)
--- NOTE | 2021-02-04 12:48 | DI.CT_ITS ---
Exam(s) CT HEAD WO EXAM: CT HEAD WO CLINICAL HISTORY: stroke. TECHNIQUE: Imaging Protocol: Axial computed tomography images with coronal and sagittal reformatted images were created and reviewed COMPARISON: CT CT BRAIN NECK CTA from 02/03/2021 FINDINGS: There are no skull fractures nor fluid in the visualized paranasal sinuses. The size of the paracentral supra callosum hemorrhage is unchanged. On today's study it measures 3 c m AP by 1.4 cm wide by 1.1 cm cephalocaudal and again exhibits some mild surrounding edema, this find ing superimposed upon the abundant bilateral periventricular white matter disease here. Area of ence phalomalacia in the right frontal lobe is again unchanged as is an area of peripheral encephalomalaci a in the left frontal lobe. No further shift. Some remnant gyral hyperdensity in the right frontal lobe is also unchanged from yesterday IMPRESSION: Minimal if any significant change in the size and appearance of the left supra callosal paramedian in tra-axial hemorrhage, when compared to yesterday. RADIATION DOSE DELIVERED: 698.76mGy.cm Total DLP DATA REPOSITORY: All CT scans at this facility are submitted to the National Radiology Data Registry (NRDR) Dose Index Registry (DIR) with the [employer] ([employer]). RADIATION OPTIMIZATION: All CT scans at this facility use at least one of these dose optimization te chniques: automated exposure control; mA and/or kV adjustment per patient size (includes targeted exa ms where dose is matched to clinical indication); or iterative reconstruction.
--- NOTE | 2021-02-04 12:57 | SP_ITS ---
Date of service: 02/04/21 Time of Service: 10:57 Subjective Patient received awake, however very lethargic/fluctuating ARTEMIO, and requiring extended processing time to respond to all verbal questions; patient was agreeable to evaluation, able to communicate wants/needs effectively per interview, however cognitive-linguistic deficits are notable (knows she is at the hospital, unclear for what, unable to recall brother?s or spouse?s name without cues; when asked the date, begins to describe story of how her brother at a hospital - unclear re: hearing deficits/hx). Able to demonstrate verbal comprehension of recommendations for safe p.o. intake; is also agreeable to receiving assistance with feeding and oral care as well as temporary diet of thin liquids only at this time, after review of observed deficits and relation to swallowing & protecting her airway. Is able to report that the reunion was ?wonderful?, smiling. Objective Objective Clinical (Bedside) Swallow Evaluation Speech Language Pathology Referring Doctor: Dr. Vasquez DIRECTOR TALENT MANAGEMENT Orders: manage/follow per spec. - hemorrhagic stroke Precautions: Fall, Standard, Full Code HPI: Pt is an 80 year old female admitted to ICU level of care s/p acute left frontal intracerebral hemorrhagic stroke; she is here in [place] for a reunion, drove with from [place]. PMHx: Medical History (Updated 02/04/21 @ 10:47 by Charline Boyd MD) Asthma Diabetes mellitus Hemorrhagic stroke Parkinson disease Social History Smoking/Tobacco Use Status: Never Smoking risk assessment performed?: Yes Alcohol Intake: never Substance use type: does not use Social History/Home Situation: Pt lives in [place] with her , James. They recently travelled to [place] by car to visit family. Reports she is independent with ADLs at baseline. OBJECTIVE: Predisposing dysphagia risk factors: hx of multiple CVAs with resulting dysphagia, seizure(s), Parkinsonism Clinical signs of possible chronic dysphagia: uncoordinated lingual/labial movements, difficulties with straw propulsion Precipitating dysphagia risk factors / triggering event: acute left frontal intracerebral hemorrhagic stroke Temp: 97.7 F Sp02: 98% RR: 16 / room air Cranial nerve exam / Oral Motor: CN V: facial sensation intact to light touch labial protrusion symmetrical labial coordination/ROM impaired Jaw excursion/lateralization intact mastication likely impaired lingual/labial sensation unclear if this impaired suspect superior hyoid movement is reduced although unable to accurately rule out at bedside CN VII: lateral sulcus residue present per documentation review anterior spillage present per documentation review, not observed w propulsion via straw salivation appears reduced CN IX/X: palatal elevation - symmetrical Vocal Quality - WFL, somewhat low volume yet intelligible taste - unable to assess onset of swallow - suspect possible delay pharyngeal residue - unable to assess nasopharyngeal regurgitation - denied by patient CN XII: bolus preparation/manipulation/control - possible impairment AP transit - possible impairment lingual protrusion- unable to perform despite max cues; impaired/weak lingual coordination/ROM impaired lingual residue present per documentation review Dentition/Oral Structures/Hygiene: able to view lower dentition during evaluation today, appear to be WFL; dry mouth is also noted oral hygiene appears less than adequate-likely to require assist from care staff for thorough oral care Language: verbal expression/fluency, naming, repetition, and auditory comprehension grossly WFL; recommend further evaluation with improved ARTEMIO Hearing: Appears WFL, unable to review records at this time Mental Status: AAOx2, recall of current events impaired Speech: mildly dysarthric yet intelligible Laryngeal function exam: Secretions: appears dry Vocal quality: WFL MPT: DNT S/Z ratio: DNT Pitch range: WFL Cough: DNT given fluctuating ARTEMIO PO intake IDDSI 0: thin via straw (-) overt s/sx aspiration [place] Swallow Protocol: DNT given fluctuating ARTEMIO Standardized: N/A IMPRESSIONS: Patient demonstrates clinical s.sx of oropharyngeal dysphagia as evidenced by reduced lingual/labial coordination, questionable level of labial/lingual/buccal sensation, and suspected pharyngeal swallow onset delay; silent aspiration cannot be ruled out with clinical bedside exam alone; patient is likely at a moderately heightened risk for aspiration-related pulmonary complication, given fluctuating ARTEMIO/distractedness, reported patterns of decline in cognitive level over past few months per spouse, dry oral mucosa/less than adequate oral hygiene, hx of dysphagia, Parkinsonism, bradykinesia, recent acute intracerebral hemorrhage, and presumed reduced immunocompetence; improvements in physical mobility/pulmonary function, and guided/direct support from care staff are likely to further reduce this risk. Patient is recommended by Neurology to continue with Sinemat 25/100mg am and lolly nchtime, which should be noted/monitored in regard to swallowing function/performance in evening hours once solid food textures are deemed appropriate (TBD). May recommend further evaluation of cognitive-lingusitic (specifically auditory comprehension/processing) with improved ARTEMIO. Further DIRECTOR TALENT MANAGEMENT services are warranted at this time. Provided brief education to patient re: anatomy/physiology of swallowing mechanism, recommended strategies to reduce overall risks (comprehension unclear) Provided education to medical staff coordinator re: recommended strategies to reduce overall risks, including recommendations for improved oral care/assist (verbal + written on patient whiteboard for review by staff) Instrumentation: N/A at this time given fluctuating ARTEMIO; if patient is unable to participate in objective swallow imaging during current acute stay at [facility] given question of current mobility level, recommend outpatient VFSE/MBSS (modified barium swallow) and/or FEES (fiberoptic endoscopic evaluation of swallow) as appropriate once discharged to further inform treatment plan of care; TBD pending further interview with patient/spouse Diet Texture Modification(s): IDDSI Level(s) 0-Thin Liquids, clear liquids only at this time Medication Intake: Whole with 0-Thin Liquids (H20) or 4-Pureed textures as tolerated; will continue to monitor for changes in ability to tolerate mixed consistencies Alter medications only as advised by MD or Pharmacist RISK MANAGEMENT: Oral hygiene 4x per day, and before/after PO intake using friction with toothbrush on all oral structures as tolerated - assist is recommended HOB upright as tolerated; upright for all PO intake. Encourage physical mobility as tolerated. Level of Assistance/Supervision: 1:1 close supervision for all PO intake PO intake only when awake/alert Will require assistance with thorough oral care by staff Strategies/Adaptations/Assistive Equipment: Reduce auditory and/or visual distractions when eating, Provide verbal and/or visual cues to use recommended strategies, ie Small sips (and bites), Slow rate of intake, Swallow between bites, Alternate intake of liquids and solids, Small+frequent meals throughout day Posture/Positioning Needs: Maintain upright position at least 30 minutes after meals, Avoid meals/snacks 2- 3 hours prior to reclining/sleeping, Sleep with head of bed elevated to reduce likelihood of nocturnal reflux Specialist referrals: N/A Ancillary tests: N/A Therapy: 3-5x/week Goals: * The patient will complete trials of IDDSI level 4 puree textures (8 oz or more) with negative overt s/sx of aspiration in 80% of trials given minimal verbal+visual cues to utilize safe swallowing strategies as deemed appropriate during acute stay (TBD) * Pt/carepartner will demonstrate comprehension of aforementioned strategies, including patient-centered risk factors to reduce aspiration pneumonia, airway occlusion, etc as evidenced by verbal/visual teachback of rationale and/or effective behavioral method within 4-5 sessions given min cues * Pt will initiate consumption of IDDSI levels 4/0 via self-feeding within 4-8 sessions independently or given min-mod cues from clinician/carepartner/staff PLAN: DIRECTOR TALENT MANAGEMENT to follow for direct treatment while on unit. Holly Pedersen MA CCC-DIRECTOR TALENT MANAGEMENT [phone] DIRECTOR TALENT MANAGEMENT CPT Code: 59166 Clinical Swallowing Evaluation Coding
--- NOTE | 2021-02-04 15:42 | PT.INIE ---
Date of service: 02/04/21 Time of Service: 15:42 PT Notes Visit Reasons: Hemorrhagic Stroke Physical Therapy Inpatient Initial Evaluation Date: 02/04/2021 Referring Doctor: Charline Boyd MD PT Orders: PT CONSULT: Urgent. Safety consult for D/C Precautions: Fall. L Hemineglect. Activity as tolerated. Patient Profile/Admitting Diagnosis: Sharonda is a 80-year-old female with past medical history significant for 2 previous CVAs since 2019, parkinsonism, and seizures who presented to the ED on due to increasing weakness, worsening confusion, and delayed speech. Patient is diagnosed left frontal intracerebral hemorrhage, generalized weakness, Parkinson's disease, seizure, and post stroke cognitive loss. PMHX: Medical History (Updated 02/03/21 @ 22:15 by Gabriel Francois MD) Asthma Diabetes mellitus Hemorrhagic stroke Parkinson disease Social History/Home Situation: Lives with second Mina in a private home with two steps to enter in [place], [place]. They drove from where they live to [facility] and then here to [place] for 4 a total of days to attend a family reunion. Per Mina, Sharonda is able to negotiate about 30 feet of distance without an assistive device with hand-held assist, able to transfer with minimal assist, and requires some assistance with bathing and dressing. Mina reports that since he and his previous took care of his [id number] previously, he has made sure that the house stayed handicap-accessible, benefit of which Sharonda now is able to reap. Equipment Owned/DME: FWW, SPC, regular wheelchair, elevator chair that can go to and from basement Subjective: Sharonda is pleasant. She is ooperative to instructions as much as she she is able to comprehend. She denies any headache, chest pain nor dizziness through the session. Mina elaborates that 's current cognitive level has deteriorated a bit due to this most recent stroke. He states that her L side was previously affected by the second stroke. He states that they will follow whatever recommendations the team will have regarding their care after he was told that an MD's clearance may be needed prior to long distance travel and that PT services will be provided while patient is on admission to ensure that mobility limitations are mitigated. Objective: General Observation: Supine in bed. Temperature monitoring in place. Mina present throughout session. IV access in R UE. Mental Status: Alert. Able to pay attention to instructions briefly but gets out of focus intermittently requiring extensive redirection. Able to recall namees of kids from oldest to youngest albeit slowly. Able to follow single step commands if repeated at least twice. Responses delayed. One-word responses. Motor execution slow and impaired. Pain: 0/10 Vital Signs: WNL as closely monitored via telemetry ROM: Right Upper Extremity: Shoulder Flexion allows only about 30 degrees. Shoulder abduction about 10 degrees. Elbow flexion WFL. Wrist flexion WFL. Functional opening and closing of hand WFL. Left Upper Extremity: Shoulder Flexion allows only about 60 degrees. Shoulder abduction about 20 degrees. Elbow flexion WFL. Wrist flexion WFL. Functional opening and closing of hand WFL but comparatively diminished than the R. Right Lower Extremity: Unable to slide heel up while in supine but is able to maintain a 60 degrees knee bending when passively flexed by PT. Hip flexion allows up to 20 degrees passively. Hip abduction about 10 degrees. Knee flexion -40 to 90 degrees while seated at edge of bed. Knee extension -40 degrees. Ankle dorsiflexion about 10 degrees below neutral. Ankle plantarflexion WFL. Left Lower Extremity: Hip flexion allows up to 20 degrees passively. Hip abduction about 10 degrees. Knee flexion -20 to 90 degrees while seated at edge of bed. Knee extension -20 degrees. Ankle dorsiflexion about 10 degrees below neutral. Ankle plantarflexion WFL. Strength: Right Upper Extremity: Shoulder flexors 2-/5. Shoulder abductors 2-/5. Elbow flexors 3-/5. Elbow extensors 3-/5. Manager Critical Care Unit weak but functional. Left Upper Extremity: Shoulder flexors 3-/5. Shoulder abductors 2-/5. Elbow flexors 3-/5. Elbow extensors 3-/5. Manager Critical Care Unit weak but functional. Right Lower Extremity: Hip flexors 5/5. Hip abductors 5/5. Knee flexors 5/5. Knee extensors 5/5. Ankle dorsiflexors 5/5. Ankle plantarflexors 5/5. Left Lower Extremity: Hip flexors 5/5. Hip abductors 5/5. Knee flexors 5/5. Knee extensors 5/5. Ankle dorsiflexors 5/5. Ankle plantarflexors 5/5. Bed Mobility/Transfers: Rolling with moderate assist with moderate cues for safe/correct technique Supine to sit moderate assist with moderate cues for safe/correct technique Sit to supine moderate assist with moderate cues for safe/correct technique Gait: Deferred for this consult. Will assess tomorrow with MANAGER SHAREPOINT/nursing staff assistance. Balance: Static Sitting: Fair. Required minimal to moderate assist to facilitate upright trunk alignment at edge of bed. R lateral trunk lean. Dynamic Sitting: Poor Static Standing: Unable Dynamic Standing: Unable Special Tests: Mobility Limitations Standardized Measure [facility] AM-PAC 6 clicks Basic Mobility Inpatient Short Form: Raw Score: 8 CMS Score: 87% deficit Informed Consent/Education: Patient and were instructed in purpose of PT consult and plan of care. Agreeable to proceed with established PT POC to achieve personal goals. Assessment: New R-sided weakness superimposed on previous L-sided hemiparesis. Poor dynamic sitting balance and tolerance with increased lateral trunk lean to the R. Seems to be having greater difficulty executing movements with the L UE which may be due to pre-existing L hemineglect. Patient will benefit from initiation of standing and walking skills inside parallel bars for safety. Patient will require SNF placement in order to regain prior mobility level before returning to home with . Patient presents with clinical signs and symptoms consistent with current/admitting diagnoses that have resulted to mobility limitations, gait instability, generalized weakness, and overall ADL decline as demonstrated by the following impairment level findings: 1. Decreased strength to B UE/LE major muscle groups 2. Impaired sitting/standing balance 3. Impaired activity tolerance 4. Limitation of joint range of motion in B UE/LE as above 5. Decreased cognitive ability 6. L hemineglect 7. Increased lateral trunk lean to R Impairments are contributing to the following functional limitations: 1. Decline in bed mobility skills 2. Decline in transfer skills 3. Difficulty with ambulation without assistive device and physical assistance 4. Increased completion time for mobility ADL performance 5. Increased risk for falls 6. Inability to thrive at home as previously Patient is assessed as a [id number] high complexity based on the following: History: 80-year-old female with past medical history as indicated above Examination: Demonstrable impairment in strength, balance, and mobility level with underlying impairments and functional limitations as exhibited above as well as deficit score of 87% utilizing the [facility] Mobility Inpatient Short Form Presentation: Evolving Decision Makin high complexity Goals: Goals X1 week 1. Supine-Sit supervision 2. Sit-Supine supervision 3. Sit-Stand contact-guard assist with FWW 4. Stand-Sit contact-guard assist with FWW 5. Bed-Chair contact-guard assist with FWW 6. Chair-Bed contact-guard assist with FWW 7. Minimal assist gait on level surface with use of front wheel walker for at least 50 feet without report of pain nor dyspnea 8. Minimal assist stair negotiation while holding onto B rails for at least 3 steps without report of pain nor dyspnea 9. Supervision with home exercise program 10. Good static and dynamic standing balance/tolerance Plan of Care/Treatment Plan: 1-2x/day, 7 days/week x 1 week. Plan of care has been reviewed with the MANAGER SHAREPOINT providing the service under Physical Therapy direction. Initiate Physical Therapy intervention for pain management as needed, strengthening, bed mobility, transfers, gait, stairs, balance training, and use of assistive device. DISCHARGE RECOMMENDATIONS: Patient will benefit from half-way facility placement for continued skilled physical therapy services in order to progress mobility level, strength, and balance in preparation for a safe discharge to home. TREATMENT CODE/TIME: 79735 x 30 minutes, 53118 x 11 minutes beginning at 15:42 PM. Thank you for the opportunity to participate in the care of this patient. Ave Rosales PT, DPT, CLT [facility] [place], [place]
--- NOTE | 2021-02-04 17:12 | W.PM.PROGNOT ---
Date of Service Date of service: 02/04/21 Time of Service: 17:12 Assessment and Plan Assessment and plan (1) Hemorrhagic stroke: Status: Acute Assessment and plan: L frontal hemorrhagic intracerebral stroke. R hemiparesis. Likely amyloid angiopathy. Previous hemorrhagic strokes x 2; first while on AC. Neurology consult appreciated. Holding ASA; restart in 14-21 days. Neuro recommendations avoiding very low or high LDL level; result pending. PT/OT/speech. Cognitive decline over several months per . (2) Parkinsonism: Status: Acute Assessment and plan: Cont Sinemet (3) Seizure: Status: Acute Assessment and plan: Post-stroke seizures; cont Keprra. No recent seizure activity per or noted here. (4) Discharge planning issues: Status: Acute Assessment and plan: Case managment to assist in logistics of she and returning to home in [place]. Subjective Subjective Patient reports: no new complaints and afebrile; denies nausea and vomiting Exam Const General: cooperative and no acute distress Orientation: alert, oriented to person and oriented to place [facility] Head: normocephalic and atraumatic Resp Effort & Inspection: normal respiratory effort Auscultation: clear to auscultation bilaterally Cardio Rate: regular rate Rhythm: regular rhythm Heart Sounds: S1 normal and S2 normal GI Palpation: soft and nontender Neuro General: moves all extremities Speech: other (dysarthria; mild) Motor: strength not 5/5 throughout (RUE 3-4/5, LUE 4/5. BLE 2/5 prox muscles.) and other (bradykinetic all exts. Slow response to commands and to mount full strength) Objective Last Vital Signs Temp 36.9 C 02/04/21 16:53 Pulse 65 02/04/21 16:53 Resp 17 02/04/21 16:53 BP 128/50 L 02/04/21 16:53 Pulse Ox 98 02/04/21 16:53 Laboratory Results - last 24 hr 02/03/21 02/03/21 02/04/21 19:07 22:58 04:37 WBC RBC Hgb Hct MCV MCH MCHC RDW Plt Count MPV Immature Gran % Neutrophils % Lymphocytes % Monocytes % Eosinophils % Basophils % Nucleated RBC % Absolute Neutrophils Absolute Lymphocytes Absolute Monocytes Absolute Eosinophils Absolute Basophils Sodium 143 Potassium 4.2 Chloride 107 Carbon Dioxide 25.6 Anion Gap 10.4 BUN 27 H Creatinine 1.1 H Estimated GFR/1.73 m2 47.67 Glucose 227 H Calcium 8.8 Troponin I < 0.05 COVID-19 Source Nasal/Nares SARS-CoV-2 (PCR) Negative 02/04/21 04:37 WBC 8.50 RBC 3.65 L Hgb 11.5 Hct 34.7 L MCV 95.1 H MCH 31.5 MCHC 33.1 RDW 15.1 H Plt Count 220 MPV 9.1 Immature Gran % 0.5 Neutrophils % 64.3 Lymphocytes % 21.2 Monocytes % 10.1 Eosinophils % 3.2 Basophils % 0.7 Nucleated RBC % 0 Absolute Neutrophils 5.47 Absolute Lymphocytes 1.80 Absolute Monocytes 0.86 H Absolute Eosinophils 0.27 Absolute Basophils 0.06 Sodium Potassium Chloride Carbon Dioxide Anion Gap BUN Creatinine Estimated GFR/1.73 m2 Glucose Calcium Troponin I COVID-19 Source SARS-CoV-2 (PCR)
[2021-02-04] MEDS: Normal Saline Flush 10 ML SYR IVP (20:05)
[2021-02-05] VITALS (30 sets, daily range): BP systolic 112–158; BP diastolic 50–97; PULSE 69–81; RESP 14–23; TEMP 36.2–36.5; O2SAT 89–97
[2021-02-05] MEDS: Amiodarone 200 MG TAB PO (07:54)
[2021-02-05] MEDS: levETIRAcetam 500 MG TAB PO ×2 (07:54→19:47)
[2021-02-05] MEDS: Carbidopa 25/Levodopa 100 TAB PO ×2 (07:54→11:59)
--- NOTE | 2021-02-05 08:32 | OTIE_ITS ---
Occupational Therapy Notes Inpatient Occupational Therapy Evaluation Date: 02/05/21 Referring Doctor:Candida Mattson MD OT Orders: Urgent, CVA Precautions: Fall, standard, Full PATIENT PROFILE/ADMITTING DIAGNOSIS: Pt is a 80 year old female who was admitted to the ICU for a dx of palliative care, seizure, parkinsonism, generalized weakness and hemorrhagic stroke. Past Medical History: Medical History (Updated 02/03/21 @ 22:15 by Gabriel Francois MD) Asthma Diabetes mellitus Hemorrhagic stroke Parkinson disease Social History/Home Situation: Pt lives with significant other, she states that she needs (A) at times but is a poor historian today with minimal communication. Equipment owned/DME: Unable to assess. SUBJECTIVE: Pt was sitting in bed when OT arrived, She cognitively is able to answer questions appropriately, but physically is unable to perform her ADLs today. OBJECTIVE: General Observation: Pleasant, and agreeable but with minimal communication. Mental Status: A&Ox3 Pain: no c/o pain ROM: RUE shoulder flexion 30*, elbow flexion WNL, hand/stamping machine operator WNL L UE shoulder flexion 30*, elbow flexion WNL, hand/stamping machine operator WNL STRENGTH: RUE 2/5 stamping machine operator strength LUE 2/5 stamping machine operator strength FUNCTIONAL MOBILITY/ADLS: BATHING with max hand placement and set up Bathing UE Unable to perform, pt can reach her face but has minimal movements of her (B) UE today Bathing LE Mx (A) DRESSING sitting in bed Dressing UE Unable to perform requires max (A) Dressing LE Unable to perform requires max (A) GROOMING max (A) TOILETING NT EATING NT SPECIAL TESTS: Daily Activity Limitations Standardized Measure [facility] AM PAC ?6 clicks? Daily Activity Inpatient Short Form: Raw score: 7 Standardized score: 20.13 CMS score: 92.44% INFORMED CONSENT/EDUCATION: Pt instructed in purpose of OT Consult and plan of care. ASSESSMENT: Patient is a 80-year-old female referred to occupational therapy services with diagnosis of hemorrhagic stroke. Patient presents with clinical signs and symptoms consistent with dx. Pt had very minimal ROM of her (B) UE, she is unable to perform her ADLs. Per RN this is not how pt was functioning yesterday and it appears that she is having a decline in her functional (I). Overall pt is unable to to follow simple commands, is able to cognitively process questions appropriately but has minimal movement. Patient is assessed as a high 70173 complexity based on the following: History: see above Examination: see functional limitations as noted above Presentation: evolving Decision Making: AMPAC score 7 GOALS Goals x1 week 1. Grooming- pt will be able to perform her oral hygiene with mod (A) 2. Dressing (I) UE mod (A) LE 3. Bathing (I) UE 4. Toileting mod (A) 5. Eating mod (A) PLAN OF CARE/TREATMENT PLAN: 1x/day, 5 days/ week x 1week Initiate Occupational Therapy Services for bathing, dressing, grooming, toileting, eating, transfer training. DISCHARGE RECOMMENDATIONS SNF when medically cleared per MD. TREATMENT TIME/MINUTES/CODES 94597, 25 minutes (08:10) Karen Rivera OTR/[facility]
[2021-02-05] MEDS: Normal Saline Flush 10 ML SYR IVP (08:50)
[2021-02-05] MEDS: Lactated Ringers 1,000 ML 80 ML IV (09:32)
--- NOTE | 2021-02-05 10:17 | PDOC.CMPRO ---
- If Service Date Differs Date of service: 02/05/21 Time of Service: 10:18 Care Management Progress Note S/O: Sharonda was sitting up in bed when CM met with her. Per report, she has had increased weakness today. Sharonda stated that she would like to get home soon to see her cat, who was a gift from her children. CM discussed her plan with the Provider, as CM is unsure if she will be medically stable enough to make the multiple day drive back home to [place]. PT stated that she would require SNF, but is unsure if her goal to return to [place] could be met, even after a SNF stay. PT stated that she is a 3 assist for standing and a 1 assist for sitting. Sharonda and her are meeting with Palliative care today to discuss her goals of care and to help determine a safe discharge plan. CM will continue to follow. A: Sharonda is an 80 year old female admitted to [facility] on 02/03/21 with hemorrhagic stroke. P: Anticipate Sharonda will return home when medically cleared, although recommendations are that she go to SNF. Her will drive her home via private vehicle. She will follow up with her PCP and discharge plan of care. CM will continue to follow.
--- NOTE | 2021-02-05 11:08 | PT.INTREAT ---
Date of service: 02/05/21 Time of Service: 11:08 PT Notes Visit Reasons: Hemorrhagic Stroke Physical Therapy Inpatient Treatment Note Date: 02/05/2021 Precautions: Fall. L Hemineglect. Activity as tolerated. Closely monitor BP during PT session. Subjective: Per nurse Carmona, patient feels better than she did earlier this morning. Patient was able to give three-word sentence responding to this PT's question. Remains cheerful. Denies any headache nor dizziness throughout PT session. Objective: General Observation: Supine in bed. Quarterturned in supine to the L as positioned by Nurse Carmona. Temperature monitoring in place. Mental Status: Alert. Able to pay attention to instructions briefly but gets out of focus intermittently requiring extensive redirection. Responses delayed. Motor execution slow and impaired. Pain: 0/10 Vital Signs: WNL as closely monitored via telemetry Bed Mobility/Transfers: Rolling with moderate assist with moderate cues for safe/correct technique Supine to sit moderate assist with moderate cues for safe/correct technique Sit to supine moderate assist of 2 due to fatigue with moderate cues for safe/correct technique Gait: Deferred for this consult. Will assess tomorrow with FLAT LOCK MACHINE OPERATOR/nursing staff assistance. Balance: Static Sitting: Poor. Required moderate assist to facilitate upright trunk alignment at edge of bed. R lateral trunk lean. Dynamic Sitting: Poor Static Standing: Unable Dynamic Standing: Unable NEURO: Trunk lean forward x 5 with minimal assit Side to side trunk lean x 5 Sit<>stand moderate assist of 2 + minimal assist of PT -BP stayed WNL throughout session Assessment: BP needs to be closely monitored during exertion with PT. Patient remains in need of extensive assist for all bed mobility. Will assess readiness for transfer and /or ambulation task performance. New R-sided weakness superimposed on previous L-sided hemiparesis. Poor dynamic sitting balance and tolerance with increased lateral trunk lean to the R. Seems to be having greater difficulty executing movements with the L UE which may be due to pre-existing L hemineglect. Patient will benefit from initiation of standing and walking skills inside parallel bars for safety. Patient will require SNF placement in order to regain prior mobility level before returning to home with . DISCHARGE RECOMMENDATIONS: Patient will benefit from fpc facility placement for continued skilled physical therapy services in order to progress mobility level, strength, and balance in preparation for a safe discharge to home. TREATMENT CODE/TIME: 35202 x 32 minutes beginning at 11:08 AM.
--- NOTE | 2021-02-05 14:13 | PT.INTREAT ---
Date of service: 02/05/21 Time of Service: 13:35 PT Notes Visit Reasons: Hemorrhagic Stroke Inpatient Physical Therapy Treatment Note [facility] Date: 02/05/2021 PRECAUTIONS: Activity as tolerated SUBJECTIVE: Micaela states that she is exhausted today, but is looking forward to being discharged to home later today. She reports that she does not walk much at home, and that her daughter and are there to help her if she needs it. OBJECTIVE: Patient observed ambulating within room independently without assistive device, without difficulty. PAIN: No c/o pain BED MOBILITY/TRANSFERS Supine-sit: Mod A x2 with HOB at 45 degrees Sit-supine: Mod A x2 with HOB at 30 degrees Sit-stand: NT Stand-sit: NT Bed-Chair: NT Chair-bed: NT GAIT: Unable THEREX: While seated at EOB, patient was instructed in forward reaching and side bends to L/R for promotion of improved core strength and stability. She was also instructed in LAQ exercise. Patient requires Mod A for all exercises, as well as posterior trunk support due to significant core weakness. ASSESSMENT: Patient continues to demonstrate significant global weakness and decreased activity tolerance. She continues to require trunk support for edge of bed sitting, as well as significant support with transfers and bed mobility at this time. PLAN: Continue with global strengthening, progress bed mobility and transfer training, as tolerated. TREATMENT CODE/TIME: 25 minutes; 23091 x2 (13:35)
--- NOTE | 2021-02-05 14:35 | PGE_ITS ---
Date of Service Date of service: 02/05/21 Time of Service: 14:37 Assessment and Plan Assessment and plan (1) Hemorrhagic stroke: Status: Acute Assessment and plan: L frontal hemorrhagic intracerebral stroke. R hemiparesis. Increased weakness today; doubt further intracerebral bleeding but a possibility. Could also be related to her Parkinsonism Likely amyloid angiopathy. Previous hemorrhagic strokes x 2; first while on AC. Neurology consult appreciated. Holding ASA; restart in 14-21 days. Neuro recommendations avoiding very low or high LDL level; result pending. PT/OT/speech. Cognitive decline over several months per . (2) Parkinsonism: Status: Acute Assessment and plan: Cont Sinemet; verify dosing with her . May need adjustment. Qualifiers: Parkinsonism type: primary Parkinsonism Qualified Code(s): G20 - Parkinson's disease (3) Seizure: Status: Acute Assessment and plan: Post-stroke seizures; cont Keprra. No recent seizure activity per or noted here. (4) Discharge planning issues: Status: Acute Assessment and plan: Case managment to assist in logistics of she and returning to home in [place]. Subjective Subjective Patient reports: afebrile; denies nausea, vomiting and shortness of breath Interval history since last seen: Pt appears more fatigued this AM. Her response time to questions was slower and often did not respond verbally to questions. Exam Const General: cooperative and no acute distress Orientation: alert, oriented to person and oriented to place Eyes Sclera: sclerae normal Pupils: PERRL (R pupil oval rather than round (previous cataract surgery per pt)) Resp Effort & Inspection: normal respiratory effort Auscultation: clear to auscultation bilaterally Cardio Rate: regular rate Rhythm: regular rhythm Heart Sounds: S1 normal and S2 normal GI Palpation: soft and nontender Skin General skin exam: no rashes or lesions noted Neuro Speech: other (slowed speech with dysarthria) Motor: pronator drift and other (Increased weakness of BUE and BLEs) Psych Affect: normal affect Objective Last Vital Signs Temp 36.4 C L 02/05/21 12:00 Pulse 75 02/05/21 14:07 Resp 17 02/05/21 14:07 BP 134/58 L 02/05/21 14:07 Pulse Ox 96 02/05/21 14:07
--- NOTE | 2021-02-05 15:56 | W.PALLCONSUL ---
Date of service: 02/05/21 Time of Service: 15:59 History of Present Illness Narrative: Sharonda Allen is an 80 year old female with a history of Parkinsonism, and previous hemorrhagic strokes (most recently 1.5 years ago) who is currently admitted to [facility] for her third hemorrhagic stroke, likely related to amyloid angiopathy. Her reports that she was getting weaker prior to their trip to [place]. Her biggest goal is to get back home to [place]. It might be possible for them to take a family member with them when they travel back. James's son is coming to [place] to see the fall foliage and he will be coming in his RV. It may be a possibility for Sharonda to ride back in the RV if she is ready to go back home at that time. They are open to going to rehab here prior to traveling home. We discussed CODE status. She wishes to remain a FULL CODE. We will continue to discuss code status at future visits. James, her is staying with her nephew locally. She has 4 kids, and her has 2 kids. She and her have been for 6 years. Assessment and Plan Assessment and plan (1) Hemorrhagic stroke: Status: Acute (2) Generalized weakness: Status: Acute (3) Parkinsonism: Status: Acute Qualifiers: Parkinsonism type: primary Parkinsonism Qualified Code(s): G20 - Parkinson's disease (4) Seizure: Status: Acute (5) Palliative care patient: Status: Acute Assessment and plan: Sharonda Allen is an 80 year old female with a history of Parkinsonism, and previous hemorrhagic strokes (most recently 1.5 years ago) who is currently admitted to [facility] for her third hemorrhagic stroke, likely related to amyloid angiopathy. We discussed goals. Her biggest goal is to get back home to [place]. It might be possible for them to take a family member with them when they travel back. James's son is coming to [place] to see the fall foliage and he will be coming in his RV. It may be a possibility for Sharonda to ride back in the RV if she is ready to go back home at that time. They are open to going to rehab here prior to traveling home. We discussed CODE status. She wishes to remain a FULL CODE. We will continue to discuss code status at future visits. She is agreeable to follow up with Palliative at the local rehab. Review of Systems All systems reviewed & are unremarkable except as noted in HPI and below [facility] Medical History (Updated 02/05/21 @ 17:17 by Irina Vasquez NP) Asthma Diabetes mellitus Hemorrhagic stroke Palliative care patient Parkinson disease Social History Smoking/Tobacco Use Status: Never Smoking risk assessment performed?: Yes Alcohol Intake: never Substance use type: does not use Exam Narrative Exam Narrative: General: elderly female, laying in bed, appears fatigued, present. She is quiet and slow to respond to questions but answers them appropriately. HEENT: atraumatic, mucous membranes dry, missing some teeth. Neck: supple. Cardiovascular: heart sounds regular, nontachycardic. Respiratory: respirations appear even and unlabored, lung sounds clear on limited anterior and lateral exam. GI: +BS, soft, nontender on palpation, nondistended. Extremities: weak hand grasps bilaterally, no significant edema. Results Last Vital Signs Temp 36.4 C L 02/05/21 12:00 Pulse 75 02/05/21 14:07 Resp 17 02/05/21 14:07 BP 134/58 L 02/05/21 14:07 Pulse Ox 96 02/05/21 14:07 Labs Result diagrams: 02/04/21 04:37 02/04/21 04:37
[2021-02-06] MEDS: Lactated Ringers 1,000 ML 80 ML IV ×2 (00:30→12:47)
[2021-02-06 01:39] VITALS: BP 153/82; PULSE 77; RESP 17; TEMP 36.5; O2SAT 93
[2021-02-06 07:18] LABS: Calculated LDL 68 mg/dL (<100); Cholesterol 124 mg/dL (<200); HDL Cholesterol 41 mg/dL (40-60); Triglyceride 77 mg/dL (<150)
[2021-02-06 07:26] VITALS: BP 168/70; PULSE 73; RESP 18; TEMP 36.7; O2SAT 94
[2021-02-06] MEDS: Amiodarone 200 MG TAB PO (08:56)
[2021-02-06] MEDS: levETIRAcetam 500 MG TAB PO ×2 (08:57→19:27)
[2021-02-06] MEDS: Sertraline 50 MG TAB 100 MG PO (08:57)
[2021-02-06] MEDS: Carbidopa 25/Levodopa 100 TAB PO ×2 (08:57→13:10)
--- NOTE | 2021-02-06 09:56 | OTTR_ITS ---
Date of service: 02/06/21 Time of Service: 09:10 Occupational Therapy Notes Occupational Therapy Inpatient Treatment Note Date: 02/06/21 PRECAUTIONS: Fall, standard, Full SUBJECTIVE: Pt was sitting in bed eating with [employer] when OT arrived. She has more verbal communication than yesterday but still limited. OBJECTIVE: PAIN:no c/o pain EATING: Sitting in bed with max (A) with vc and light touch from hand to mouth she was able to bring popscicle to mouth and with vc grasp her hand on the cup bring cup to mouth. She did utilize her (L) UE to provide (A) With (R) for drinking out of cup. She may benefit from handled cup to progress her (I) and remains needing (A) for her eating routines at this time. ASSESSMENT/PLAN: OT will continue to work with pt to progress her functional (I), she is doing better today with (B) UE mobility but overall she remains limited. TREATMENT CODES/TIME: 74073, 20 minutes (09:10) [facility]
[2021-02-06 12:07] VITALS: BP 181/99; PULSE 74; RESP 18; TEMP 36.7; O2SAT 97
--- NOTE | 2021-02-06 12:28 | PT.INTREAT ---
Date of service: 02/06/21 Time of Service: 11:40 PT Notes Visit Reasons: Hemorrhagic Stroke Inpatient Physical Therapy Treatment Note [facility] Date: 02/06/2021 PRECAUTIONS: L hemineglect, activity as tolerated SUBJECTIVE: Sharonda states that she is feeling a little better today, and is pleasant and agreeable to participating in PT. OBJECTIVE: PAIN: No c/o pain BED MOBILITY/TRANSFERS Supine-sit: Mod A x2 with HOB at 40 degrees Sit-supine: Mod A x2 with HOB flat Sit-stand: Attempt x2 with Mod A x2 and FWW, patient unable to stand completely in a.m.; Mod A x2 (performed x3) in p.m. Stand-sit: Attempt x2 with Mod A x2 and FWW, patient unable to stand completely in a.m.; Mod A x2 (performed x3) in p.m. GAIT: Unable THEREX: Patient was instructed in a global strengthening program, completed at EOB, with posterior support and B UE support. She completes forward reaching, cross-reaching, lateral trunk bends, shoulder flexion to ~100 degrees, and LAQ, all with assist and trunk support in a.m. Patient was not able to tolerate ther ex in p.m. due to fatigue and limited trunk stability. She was able to attempt forward reaching, although continued to lean to the R, and was not able to maintain erect posture. ASSESSMENT: Patient tolerated session well, without complaint. She demonstrates postural sway to the left (in a.m.) and to the right (in p.m.) while seated at EOB, as well as limited trunk stability, requiring assist to sit at EOB and perform exercises. PLAN: Continue with global strengthening for improved sitting tolerance and stability. TREATMENT CODE/TIME: Session 1: 25 minutes; 64574, 71008 (11:40) Session 2: 25 minutes; 14990 (13:20)
[2021-02-06 15:13] VITALS: BP 175/95; PULSE 79; RESP 20; TEMP 36.4; O2SAT 94
--- NOTE | 2021-02-06 15:38 | CHAPLAIN ---
Sharonda was tucked in among lots of blankets when I visited this afternoon. Her said she is often cold. Sharonda responded to a couple of questions, but seemed tired. Yesterday in the ICU, Sharonda's explained that Sharonda had been to his brother and after the brother , and his , he and Sharonda got together. Sharonda had been living in [place], so that is where they live now. Her is from the [facility] and that's why they're here.
--- NOTE | 2021-02-06 18:59 | PDOC.CMPRO ---
- If Service Date Differs Date of service: 02/06/21 Time of Service: 18:59 Care Management Progress Note S/O: Sharonda was sitting up in bed today, her , James, by her side. She reported that she was feeling better today. Her did express concern regarding her confusion, and reported that she has been steadily declining over the past few months. Sharonda and James met with Palliative care yesterday, and they decided that she would like to go to short term rehab in order to gain strength, with a goal to be able to return home, to [place], by car. They both agreed that [facility] is the closest facility, as he will want to visit often. CM sent a referral to [facility], and she was accepted, pending a prior authorization by her insurance, which is in process. CM will continue to follow. A: Sharonda is an 80 year old female admitted to [facility] on 02/03/21 with hemorrhagic stroke. P: Sharonda was accepted at [facility], pending a PA by her insurance, which is in progress. Her will drive her via private vehicle vs facility w/c van. She will follow up with her PCP and discharge plan of care. CM will continue to follow.
--- NOTE | 2021-02-06 20:58 | PGE_ITS ---
Date of Service Date of service: 02/06/21 Time of Service: 20:59 Assessment and Plan Assessment and plan (1) Hemorrhagic stroke: Status: Acute Assessment and plan: L frontal hemorrhagic intracerebral stroke. R hemiparesis. Increased weakness today; doubt further intracerebral bleeding but a possibility. Could also be related to her Parkinsonism Likely amyloid angiopathy. Previous hemorrhagic strokes x 2; first while on AC. Neurology consult appreciated. Holding ASA; restart in 14-21 days. Neuro recommendations avoiding very low or high LDL level; LDL of 68. PT/OT/speech. Cognitive decline over several months per . (2) Parkinsonism: Status: Acute Assessment and plan: Cont Sinemet; verified dosing with her . May need adjustment. Qualifiers: Parkinsonism type: primary Parkinsonism Qualified Code(s): G20 - Parkinson's disease (3) Seizure: Status: Acute Assessment and plan: Post-stroke seizures; cont Keprra. No recent seizure activity per or noted here. (4) Discharge planning issues: Status: Acute Assessment and plan: Case managment to assist in logistics of she and returning to home in [place] given her profound all extremity weakness and need for significant assistance just for bed repositioning. Poor prognosis for recovery. Palliative has evaluated and she wished to remain a full code. Will re-address this soon. Subjective Subjective Patient reports: afebrile; denies nausea, vomiting and shortness of breath Interval history since last seen: She denies any new problems. No SANDY, visual changes. Exam Const General: cooperative and no acute distress Orientation: alert, oriented to person and oriented to place [facility] Head: normocephalic and atraumatic Eyes Sclera: sclerae normal Pupils: PERRL (R pupil oval rather than round (previous cataract surgery per pt)) EOM: No nystagmus Resp Effort & Inspection: normal respiratory effort Auscultation: clear to auscultation bilaterally Cardio Rate: regular rate Rhythm: regular rhythm Heart Sounds: S1 normal and S2 normal GI Palpation: soft and nontender Skin General skin exam: no rashes or lesions noted Neuro General: moves all extremities Cranial Nerves: no nystagmus Speech: other (slowed speech with dysarthria) Motor: strength not 5/5 throughout (RUE 3-4/5, LUE 4/5. BLE 2/5 prox muscles.), pronator drift, movement abnormality noted (cogwheel rigidity of BUE at elbows) and other (Increased weakness of BUE and BLEs) Extrem General: no pedal edema and no calf tenderness Psych Affect: normal affect Objective Last Vital Signs Temp 36.4 C L 02/06/21 15:13 Pulse 79 02/06/21 15:13 Resp 20 02/06/21 15:13 BP 175/95 H 02/06/21 15:13 Pulse Ox 94 02/06/21 15:13 Laboratory Results - last 24 hr 02/06/21 06:06 Triglycerides 77 Total Cholesterol 124 LDL Cholesterol, Calc 68 HDL Cholesterol 41
--- NOTE | 2021-02-07 | DI.CT_ITS ---
Exam(s) CT HEAD WO EXAM: CT HEAD WO CLINICAL HISTORY: f/u hemorrhagic CVA TECHNIQUE: COMPARISON: CT CT HEAD WO from 02/04/2021 FINDINGS: CT examination was performed without contrast administration. Note is again made of previously descr ibed left supra ventricular parenchymal hemorrhage, there is slightly increased resorption of blood p roducts since prior examination of February 04. No new mass effect. No new hemorrhage identified. N ote is again made of changes of cerebral atrophy and multiple old cerebral infarcts. IMPRESSION: No significant change in previously described left sided para median supra ventricular hemorrhage. RADIATION DOSE DELIVERED: 621.7mGy.cm Total DLP 33.93mGy CTDIvol RADIATION OPTIMIZATION: All CT scans at this facility use at least one of these dose optimization te chniques: automated exposure control; mA and/or kV adjustment per patient size (includes targeted exa ms where dose is matched to clinical indication); or iterative reconstruction.
[2021-02-07] MEDS: Lactated Ringers 1,000 ML 80 ML IV ×3 (00:38→12:19)
[2021-02-07 01:00] VITALS: BP 150/99; PULSE 78; RESP 18; TEMP 35.6; O2SAT 95
[2021-02-07] MEDS: Carbidopa 25/Levodopa 100 TAB PO (06:16)
[2021-02-07 08:04] VITALS: BP 146/90; PULSE 74; RESP 18; TEMP 36; O2SAT 96
[2021-02-07 09:21] LABS: Abs Immature Grans 0.09 10^3/uL (0.0-0.06); Absolute Eosinophil Count 0.03 10^3/uL (0.0-0.7); Absolute Monocyte Count 1.87 10^3/uL (0.1-0.8); Absolute Neutrophil Count 13.37 10^3/uL (1.2-6.7); Basophils % 0.4; Eosinophils % 0.2; HCT 41.9 % (36.0-46.0); Immature Grans % 0.5; Lymphocytes % 8.3; MCH 31.9 pg (27.0-33.0); MCHC 33.4 % (32.0-36.0); MCV 95.4 fL (80-95); MPV 9.4 fL (8.0-11.0); Monocytes % 11.1; Neutrophils % 79.5; Nucleated RBC 0 %; RBC 4.39 10^6/uL (3.93-5.22); RDW 14.5 % (11.7-14.6); RDW-SD 51.2 fL; WBC 16.82 10^3/uL (4.4-10.8)
[2021-02-07 09:27] LABS: Absolute Basophil Count 0.07 10^3/uL (0.0-0.2); Anion Gap 3.9 mmol/L (3-11); BUN 24 mg/dL (7-18); CO2 27.1 mmol/L (21.0-32.0); CREATININE 1.4 mg/dL (0.55-1.02); Calcium 8.9 mg/dL (8.5-10.1); Chloride 103 mmol/L (98-107); Estimated GFR 36.09 (mL/min/1.73m2); Glucose 320 mg/dL (74-106); Magnesium 1.7 mg/dL (1.8-2.4); Potassium 3.7 mmol/L (3.5-5.1); Sodium 134 mmol/L (136-145)
--- NOTE | 2021-02-07 09:48 | DI.VRAD_ITS ---
PROCEDURE INFORMATION: Exam: CT Head Without Contrast Exam date and time: 02/07/2021 8:48 AM Age: 80 years old Clinical indication: Other: Follow up hemorrhagic CVA TECHNIQUE: Imaging protocol: Computed tomography of the head without contrast. Radiation optimization: All CT scans at this facility use at least one of these dose optimization techniques: automated exposure control; mA and/or kV adjustment per patient size (includes targeted exams where dose is matched to clinical indication); or iterative reconstruction. COMPARISON: 1. MR BRAIN WO 02/04/2021 1:[address] HEAD WO 02/04/2021 12:50:[address] HEAD WO 02/03/2021 2:52:07 PM FINDINGS: Brain: There is acute hemorrhage in left paramedian posterior frontal lobe which appears unchanged in size. This appears smaller on axial images but this is unchanged on coronal and sagittal images and this apparent change in size is due to difference in head positioning and therefore scan angulation compared to comparison study. There are chronic infarcts in right posterior temporal and parietal lobes, and bilateral frontal lobes. The right frontal infarct shows small amount increased attenuation on CT corresponding to blood products on MRI. This is therefore consistent with a small amount hemorrhage within the right frontal infarct. This is unchanged from the comparison CTs. On MRI, there is also areas of chronic hemorrhage in the right greater than left frontal infarcts and right temporoparietal infarcts. There is also hemosiderin staining in several sulci including along the anterior surface of left frontal lobe and left anterior frontal sulcus, and right central sulcus consistent with hemosiderin staining related to prior subarachnoid extension of hemorrhage presumably from the areas of chronic infarct. This is not an acute finding. There is atrophy and microvascular change. Cerebral ventricles: No ventriculomegaly. Paranasal sinuses: Visualized sinuses are unremarkable. No fluid levels. Mastoid air cells: No significant mastoid effusion. Bones/joints: No acute fracture. Soft tissues: Unremarkable. IMPRESSION: Stable intracranial examination with stable left paramedian frontal hemorrhage. Small areas of petechial hemorrhage in right frontal lobe are also stable. Candida Goldsmith was notified of these results by telephone call from Dr. Lorin Lombardo 02/07/2021 9:47 AM EDT and acknowledged receipt of this notification. Dictated and Authenticated by: Lorin Lombardo MD. Ordering:ADRIAN Tirado MD
[2021-02-07 09:49] LABS: Diff Comment Agrees w/ Instrument; Platelet Count 229 10^3/uL (130-400); RBC Morphology Normal
--- NOTE | 2021-02-07 10:00 | DI.RAD_ITS ---
Exam(s) XR PORTABLE CHEST AP EXAM: XR PORTABLE CHEST AP CLINICAL HISTORY: new leucocytosis TECHNIQUE: COMPARISON: CR XR CHEST 2V PA LATERAL from 02/03/2021 FINDINGS: The heart is at the upper limits of normal in size. Lungs are grossly clear and well expanded. Thor acic aorta appears ectatic on this AP view. IMPRESSION: No evidence of acute process. No change from examination of February 03. RADIATION DOSE DELIVERED: Total DLP
--- NOTE | 2021-02-07 10:29 | DI.VRAD_ITS ---
PROCEDURE INFORMATION: Exam: XR Chest Exam date and time: 02/07/2021 10:08 AM Age: 80 years old Clinical indication: Other: New leukocytosis TECHNIQUE: Imaging protocol: XR of the chest. Views: 1 view. COMPARISON: CR XR CHEST 2V PA LATERAL 02/03/2021 3:07 PM FINDINGS: Lungs: No consolidation. Pleural spaces: Unremarkable. No pleural effusion. No pneumothorax. Heart/Mediastinum: No significant cardiomegaly. Aorta is calcified. Bones/joints: No acute finding. IMPRESSION: No acute finding. Dictated and Authenticated by: Lorin Lombardo MD. Ordering:ADRIAN Tirado MD
[2021-02-07] MEDS: Pantoprazole 40 MG VIAL IVP (12:00)
[2021-02-07] MEDS: levETIRAcetam 500 MG in Normal Saline 100 ML 400 MG IVPB ×2 (12:05→21:56)
[2021-02-07] MEDS: Insulin Aspart 300 UNITS/3 ML PEN SC ×3 (12:17→21:55)
[2021-02-07] MEDS: MAGNESIUM SULFATE 2 GM/50 ML BAG IVPB (12:22)
--- NOTE | 2021-02-07 12:37 | PT.INTREAT ---
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 Tire today, but okay with doing some bed activities. OBJECTIVE: PAIN: No reports of pain with movement. BED MOBILITY/TRANSFERS All exercises were performed in supine in bed today, per discussion with nursing, due to noted increased weakness earlier in the day. THEREX: Performed AAROM with bilateral UEs / LEs. Able to perform 10 reps of shoulder flexion 0 to 70 degrees, shoulder abd/adduction, bicep curls, hip abd / adduction, heel slides and ankle pumps. Very limited assistance given by patient. Inidicated that moving of extremities felt fine. ASSESSMENT: Held on any activities at edge of bed due to limited active function today, as per discussion with nursing staff. PLAN: Will see how patient is doing tomorrow and proceed as appropriate. TREATMENT CODE/TIME: 81400, 15 minutes, 11:00 to 11:15 am
[2021-02-07 15:20] VITALS: BP 161/87; PULSE 63; RESP 18; TEMP 35.8; O2SAT 94
[2021-02-07] MEDS: Bisacodyl 10 MG SUPP PR (15:54)
[2021-02-07 16:34] LABS: Bilirubin Negative (Negative); Blood Trace-intact (Negative); Clarity Sl Cloudy (Clear); Glucose 250 mg/dL (Negative); Ketones Negative (Negative); Leukocyte Esterase Small (Negative); Nitrite Negative (Negative); Specific Gravity >= 1.030 (1.005-1.025); Urobilinogen 0.2 EU/dL (Up TO 0.2)
[2021-02-07] MEDS: Lactated Ringers 1,000 ML 125 ML IV (16:40)
--- NOTE | 2021-02-07 16:47 | W.PM.PROGNOT ---
Date of Service Date of service: 02/07/21 Time of Service: 16:48 Assessment and Plan Assessment and plan (1) Hemorrhagic stroke: Status: Acute Assessment and plan: Due to amyloid angiopathy. BPs controlled. Unfortunately, today she is unable to swallow. Discussed with and patient: agreeing to feeding tube.General surgery is consulted for PEG/gastrostomy tube placement. (2) Parkinsonism: Status: Acute Assessment and plan: Unfortunately, unable to take her sinemet. Will require resumption of this as soon as there is a way to get pills in. Qualifiers: Parkinsonism type: primary Parkinsonism Qualified Code(s): G20 - Parkinson's disease (3) Atrial fibrillation: Status: Chronic Assessment and plan: S/p Watchman's procedure, not on anticoagulation. Rates have been controlled. Resume amiodarone once has a feeding tube. (4) Seizure: Status: Acute Assessment and plan: Post CVA - continue keppra. Controlled so far. (5) Dysphagia: Status: Acute Assessment and plan: In setting of CVA, Parkinsonism. General surgery consulted as above for gastrostomy tube placement (6) Discharge planning issues: Status: Acute Assessment and plan: Full code (7) DVT prophylaxis: Status: Acute Assessment and plan: TEDs/SCDs Subjective Subjective Interval history since last seen: The patient endorses a headache. Constipated, but had a BM after a suppository. Per nursing, unable to swallow food, liquids, pills. Patient's noticed that Ms Curyr is not doing as well today. We talked about this sometimes being the case with strokes. We also talked about getting a feeding tube, to which both his and Ms Curry are in agreement. His brother had a feeding tube for a long time, and they feel comfortable with that. Exam Narrative Exam Narrative: General: Pleasant frail elderly female who is slow to respond, provides hesitant 1 word answers, able to move all 4 extremities HEENT: EOMI, dry MM Heart: RRR Lungs: Diminished breath sounds anteriorly Abdomen: soft, full, nontender, no edema Extremities: no edema BLE's Objective Last Vital Signs Temp 35.8 C L 02/07/21 15:20 Pulse 63 02/07/21 15:20 Resp 18 02/07/21 15:20 BP 161/87 H 02/07/21 15:20 Pulse Ox 94 02/07/21 15:20 Laboratory Results - last 24 hr 02/07/21 02/07/21 09:10 09:10 WBC 16.82 H RBC 4.39 Hgb 14.0 Hct 41.9 MCV 95.4 H MCH 31.9 MCHC 33.4 RDW 14.5 Plt Count 229 MPV 9.4 Immature Gran % 0.5 Neutrophils % 79.5 Lymphocytes % 8.3 Monocytes % 11.1 Eosinophils % 0.2 Basophils % 0.4 Nucleated RBC % 0 Absolute Neutrophils 13.37 H Absolute Lymphocytes 1.40 Absolute Monocytes 1.87 H Absolute Eosinophils 0.03 Absolute Basophils 0.07 RBC Morphology Normal Sodium 134 L Potassium 3.7 Chloride 103 Carbon Dioxide 27.1 Anion Gap 3.9 BUN 24 H Creatinine 1.4 H Estimated GFR/1.73 m2 36.09 Glucose 320 H Calcium 8.9 Magnesium 1.7 L Objective Narrative Objective Narrative: CXR: No evidence of acute process. No change from examination of February 03.
[2021-02-07 17:17] LABS: Bacteria Many HPF (Negative); C & S Indicated? C&S Done As Ordered; Casts Negative LPF (Negative); Crystals Negative HPF (Negative); Epithelial Cells Negative HPF (Negative); Mucus Negative (Negative); Other Cells Negative (Negative); RBC Negative HPF (0-2)
[2021-02-07] MEDS: Normal Saline 500 ML 100 ML IV (17:52)
[2021-02-07] MEDS: cefTRIAXone 1 GM/50 ML BAG IVPB (17:52)
[2021-02-07 23:34] VITALS: BP 158/84; PULSE 64; RESP 18; TEMP 36.3; O2SAT 95
[2021-02-08] VITALS (18 sets, daily range): BP systolic 123–210; BP diastolic 49–111; PULSE 58–74; RESP 15–20; TEMP 35.5–38; O2SAT 95–97
[2021-02-08] MEDS: Lactated Ringers 1,000 ML 125 ML IV ×3 (02:08→23:41)
[2021-02-08] MEDS: Insulin Aspart 300 UNITS/3 ML PEN SC ×4 (04:47→21:55)
[2021-02-08 07:35] LABS: Abs Immature Grans 0.04 10^3/uL (0.0-0.06); Absolute Basophil Count 0.08 10^3/uL (0.0-0.2); Absolute Eosinophil Count 0.59 10^3/uL (0.0-0.7); Absolute Lymphocyte Count 1.91 10^3/uL (1.2-3.4); Absolute Monocyte Count 1.12 10^3/uL (0.1-0.8); Basophils % 0.7; Eosinophils % 5.1; HCT 32.9 % (36.0-46.0); HGB 10.7 g/dL (11.2-15.7); Immature Grans % 0.3; Lymphocytes % 16.5; MCH 31.7 pg (27.0-33.0); MCHC 32.5 % (32.0-36.0); MCV 97.3 fL (80-95); MPV 9.8 fL (8.0-11.0); Monocytes % 9.7; Neutrophils % 67.7; Nucleated RBC 0 %; Platelet Count 200 10^3/uL (130-400); RBC 3.38 10^6/uL (3.93-5.22); RDW 14.6 % (11.7-14.6); RDW-SD 52.5 fL; WBC 11.56 10^3/uL (4.4-10.8)
[2021-02-08 07:37] LABS: Absolute Neutrophil Count 7.83 10^3/uL (1.2-6.7)
[2021-02-08 07:48] LABS: PTT Activated 23.2 sec (21.0-27.5); Prothrombin Time 10.5 sec (9.3-11.0)
[2021-02-08 07:53] LABS: Anion Gap 8.6 mmol/L (3-11); BUN 29 mg/dL (7-18); CO2 28.4 mmol/L (21.0-32.0); CREATININE 1.3 mg/dL (0.55-1.02); Calcium 8.3 mg/dL (8.5-10.1); Chloride 107 mmol/L (98-107); Estimated GFR 39.31 (mL/min/1.73m2); Glucose 185 mg/dL (74-106); Magnesium 1.9 mg/dL (1.8-2.4); Potassium 3.1 mmol/L (3.5-5.1); Sodium 144 mmol/L (136-145)
[2021-02-08] MEDS: levETIRAcetam 500 MG in Normal Saline 100 ML 400 MG IVPB ×2 (09:40→21:46)
[2021-02-08] MEDS: Pantoprazole 40 MG VIAL IVP (09:44)
[2021-02-08] MEDS: POTASSIUM CHLORIDE 20 MEQ/100 ML BAG 50 MEQ IVPB (09:44)
[2021-02-08] MEDS: Normal Saline Flush 10 ML SYR IVP ×4 (09:45→17:45)
--- NOTE | 2021-02-08 09:48 | W.SURGCON ---
Assessment and Plan Assessment and plan (1) Dysphagia: Status: Acute Assessment and plan: -Patient is not a candidate for PEG or gastrostomy tube at [facility] secondary to recent/active hemorrhagic stroke and significant anesthetic risk per hospital protocol; case has also been discussed with anesthesia here who remain in agreement with transfer to higher level of care for procedure -May place NG tube for enteric feeding in the interim until care can be coordinated -Consider NPO after midnight in case of procedure possibility tomorrow Qualifiers: Dysphagia type: oropharyngeal phase Qualified Code(s): R13.12 - Dysphagia, oropharyngeal phase History of Present Illness Narrative: Patient is currently admitted to [facility] with 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 She was seen by speech pathology who deemed her high risk for silent aspiration due to short attention span and fluctuating levels of alertness. Patient is able to respond to most questions, albeit with significant delay, but does not have any purposeful movement of her extremities. She has a large upper midline exploratory laparotomy scar and some laparoscopic incisions but is not able to tell me what surgeries she has had. She denies being in any pain or discomfort at this time and did tell me she did not really want to have a feeding tube but realizes it is necessary for survival. Consults Consult date: 02/08/21 Requesting physician: Candida Mattson Review of Systems Constitutional Constitutional: Reports as per HPI, Denies headache(s) and Reports weakness ENT Ears, Nose, Mouth, and Throat: Denies headache(s) Cardiovascular Cardiovascular: Denies chest pain and Denies dyspnea Respiratory Respiratory: Denies cough and Denies dyspnea Gastrointestinal Gastrointestinal: Denies abdominal pain, Denies nausea and Denies vomiting Comments: dysphagia Musculoskeletal Musculoskeletal: Denies deformity, Denies arthralgias and Reports muscle weakness (diffuse, all 4 extremities) Neurologic Neurologic: Reports abnormal speech (slow), Denies headache(s), Denies sensory deficit and Reports weakness [facility] Medical History (Updated 02/08/21 @ 10:21 by Samantha Jones DO) Asthma Atrial fibrillation Diabetes mellitus Hemorrhagic stroke Palliative care patient Parkinson disease Social History Smoking/Tobacco Use Status: Never Smoking risk assessment performed?: Yes Alcohol Intake: never Substance use type: does not use Exam Const General: cooperative, comfortable and no acute distress Eyes Eyelids: other (keeps eyes closed) EOM: EOM intact bilaterally Resp Effort & Inspection: normal respiratory effort and no audible wheezes Cardio Rate: regular rate Rhythm: regular rhythm GI Inspection: non-distended, obesity and scar (large upper midline, laparoscopic scars) Palpation: no guarding and nontender Percussion: normal to percussion Neuro General: patient alert, patient awake and oriented Patient Orientation: Person and Place Cognition: abnormal cognition Speech: expressive aphasia Motor: fasciculations and muscle tone abnormal (upper and lower extremities) Sensory Exam: no sensory deficits noted Extrem General: normal to inspection and limp Results Last Vital Signs Temp 96.8 F L 02/08/21 07:10 Pulse 70 02/08/21 07:10 Resp 15 02/08/21 07:10 BP 132/78 02/08/21 07:10 Pulse Ox 97 02/08/21 07:10 Labs Result diagrams: 02/08/21 07:12 02/08/21 07:12 Labs: Laboratory Results - last 24 hr 02/07/21 02/07/21 02/08/21 09:10 15:45 07:12 WBC 16.82 H RBC 4.39 Hgb 14.0 Hct 41.9 MCV 95.4 H MCH 31.9 MCHC 33.4 RDW 14.5 Plt Count 229 MPV 9.4 Immature Gran % 0.5 Neutrophils % 79.5 Lymphocytes % 8.3 Monocytes % 11.1 Eosinophils % 0.2 Basophils % 0.4 Nucleated RBC % 0 Absolute Neutrophils 13.37 H Absolute Lymphocytes 1.40 Absolute Monocytes 1.87 H Absolute Eosinophils 0.03 Absolute Basophils 0.07 RBC Morphology Normal PT INR APTT Sodium 144 Potassium 3.1 L Chloride 107 Carbon Dioxide 28.4 Anion Gap 8.6 BUN 29 H Creatinine 1.3 H Estimated GFR/1.73 m2 39.31 Glucose 185 H D Calcium 8.3 L Magnesium 1.9 Urine Color Yellow Urine Clarity Sl Cloudy Urine pH 5.0 Ur Specific [place] >= 1.030 H Urine Protein Negative Urine Ketones Negative Urine Blood Trace-intact H Urine Nitrite Negative Urine Bilirubin Negative Urine Urobilinogen 0.2 Ur Leukocyte Esterase Small H Urine RBC Negative Urine WBC 5-10 Ur Epithelial Cells Negative Urine Crystals Negative Urine Bacteria Many Urine Casts Negative Urine Mucus Negative Urine Other Negative Ur Culture Indicated? C&S Done As Ordered Urine Glucose 250 H 02/08/21 02/08/21 07:12 07:12 WBC 11.56 H D RBC 3.38 L Hgb 10.7 L D Hct 32.9 L D MCV 97.3 H MCH 31.7 MCHC 32.5 RDW 14.6 Plt Count 200 MPV 9.8 Immature Gran % 0.3 Neutrophils % 67.7 Lymphocytes % 16.5 Monocytes % 9.7 Eosinophils % 5.1 Basophils % 0.7 Nucleated RBC % 0 Absolute Neutrophils 7.83 H Absolute Lymphocytes 1.91 Absolute Monocytes 1.12 H Absolute Eosinophils 0.59 Absolute Basophils 0.08 RBC Morphology PT 10.5 INR 1.0 APTT 23.2 Sodium Potassium Chloride Carbon Dioxide Anion Gap BUN Creatinine Estimated GFR/1.73 m2 Glucose Calcium Magnesium Urine Color Urine Clarity Urine pH Ur Specific [place] Urine Protein Urine Ketones Urine Blood Urine Nitrite Urine Bilirubin Urine Urobilinogen Ur Leukocyte Esterase Urine RBC Urine WBC Ur Epithelial Cells Urine Crystals Urine Bacteria Urine Casts Urine Mucus Urine Other Ur Culture Indicated? Urine Glucose
[2021-02-08] MEDS: Metoprolol 5 MG/5 ML VIAL 2.5 MG IVP ×3 (10:21→21:36)
--- NOTE | 2021-02-08 11:07 | PT.INTREAT ---
Date of service: 02/08/21 Time of Service: 08:50 PT Notes Visit Reasons: Hemorrhagic Stroke Inpatient Physical Therapy Treatment Note [facility] Date: 02/08/2021 PRECAUTIONS: left cadence neglect, activity as tolerated and fall SUBJECTIVE: Indicated yes to being willing to help move arms and legs while lying in bed. Did not open eyes entire treatment but able to answer yes an no question appropriately most of the time. OBJECTIVE: PAIN: Indicated no to any questions regarding pain. BED MOBILITY/TRANSFERS All exercises were performed in supine in bed today, per discussion with nursing, due to continued increased weakness. THEREX: Performed AAROM with bilateral UEs / LEs. Able to perform 10 reps of shoulder flexion 0 to 70 degrees, shoulder abd/adduction, bicep curls, shoulder IR/ER, hip abd / adduction, heel slides and ankle pumps. Very limited assistance given by patient. ASSESSMENT: Held on any activities at edge of bed due to limited active function today, as per discussion with nursing staff. PLAN: Will see how patient is doing tomorrow and proceed as appropriate. ASSESSMENT: Tolerated AAROM of bilateral UEs/ LEs well, but not offering much assistance with any of these movements. PLAN: Continue with current plan of care with focus on improved functional mobility. TREATMENT CODE/TIME: 35462, (20') 8:50 to 9:10 am
[2021-02-08] MEDS: Acetaminophen 650 MG SUPP PR (11:56)
--- NOTE | 2021-02-08 12:45 | PHA.REVIEW ---
Pharmacy Admission Review - Admission Clinical Review (Last Updated 02/07/21 @ 16:56 by Candida Mattson MD) DVT prophylaxis (Acute) Dysphagia (Acute) Palliative care patient (Acute) Discharge planning issues (Acute) Seizure (Acute) Parkinsonism (Acute) Generalized weakness (Acute) Hemorrhagic stroke (Acute) codeine Allergy (Unverified 02/03/21 13:19) Resuscitation Status Full Code Height 5 ft 3 in Weight 76.793 kg Hemorrhagic Stroke - Comments Comments/Follow Ups: OT/PT evaluation shows functional decline, unable to perform ADL's. This is her 3rd stroke, ASA not ordered. On Keppra, but no recent seizure activity noted. Visiting family here from [place] w/ & will attempt to return, but will require some rehab prior. Stool heme negative. Discussion of possible feeding tube. Blood culture negative. Rocephin for UTI - Renal Dosing Renal Dosing: BUN 29 mg/dL (7-18) H 02/08/21 07:12 Creatinine 1.3 mg/dL (0.55-1.02) H 02/08/21 07:12 Medications needing adjustments: Reviewed (CrCl~28ml/min) - Anticoagulation Anticoagulation: Hgb 10.7 g/dL (11.2-15.7) L D 02/08/21 07:12 Hct 32.9 % (36.0-46.0) L D 02/08/21 07:12 Plt Count 200 10^3/uL (130-400) 02/08/21 07:12 INR 1.0 (0.9-1.1) 02/08/21 07:12 Creatinine 1.3 mg/dL (0.55-1.02) H 02/08/21 07:12 DVT Prophylaxis: N/A Therapeutic Anticoagulation: N/A - Opiate Usage Evaluate Pain Scale/Pains Meds: N/A - Relevant Labs Sodium 144 mmol/L (136-145) 02/08/21 07:12 Potassium 3.1 mmol/L (3.5-5.1) L 02/08/21 07:12 Chloride 107 mmol/L (98-107) 02/08/21 07:12 Magnesium 1.9 mg/dL (1.8-2.4) 02/08/21 07:12 Electrolytes, C-Reactive P, ESR: Reviewed (K+ 20meq IV x2 runs) - DM Control DM Control: Glucose 185 mg/dL (74-106) H D 02/08/21 07:12 Finger Stick Blood Glucose 229 Finger Stick Blood Glucose 229 Finger Stick Blood Glucose 229 Insulin Dosing: Reviewed (Novolog scale q6h) - Heart Failure/AR Heart Failure/AR: Troponin I < 0.05 ng/mL (<0.06) 02/03/21 19:07 EF%, WESLEY's, B-Blockers, Diuretics: Reviewed (Hydralazine w/parameters for SBP>140, metoprolol IV-no parameters) - BP Control BP Control: Blood Pressure 148/54 Blood Pressure 127/76 Blood Pressure 141/70 Blood Pressure 132/60 Blood Pressure 123/49 Blood Pressure 123/49 Blood Pressure 132/78 If elevated: N/A - Qtc Review If Elevated: Reviewed (QTC 442 on admission) - IV to PO Switch IV Medications: Reviewed (Pt currently NPO, difficulty swallowing, IV Keppra, Protonix, Metoprolol, K+ replacement) - Home Meds Home Med List reviewed: Reviewed (No external medication history) Relevent Home Meds Not ordered & why?: Nortriptyline, Vit B12, Remeron, Glimepiride (has Novolog), others on hold - Current meds Current Medication Order Review: Reviewed (Amiodarone, Sinemet, Sertraline on hold due to swallow issues-NPO) Antibiotic Activity - Pharmacy Antibiotic Review Pharmacy Antibiotic Activity: C/S review (?contamination; >100K Lactobacillus) - Antibiotic Information Antibiotic Review Info: Rocephin for UTI
[2021-02-08 13:00] LABS: HCT 36.3 % (36.0-46.0); HGB 11.8 g/dL (11.2-15.7)
[2021-02-08] MEDS: POTASSIUM CHLORIDE 20 MEQ/100 ML BAG 25 MEQ IVPB (14:48)
--- NOTE | 2021-02-08 15:31 | W.PM.PROGNOT ---
Date of Service Date of service: 02/08/21 Time of Service: 15:31 Assessment and Plan Assessment and plan (1) Hemorrhagic stroke: Status: Acute Assessment and plan: Due to amyloid angiopathy. BPs higher today - started on IV lopressor as unable to tolerate PO meds. Discussed with and patient: agreeing to feeding tube. General surgery is consulted for PEG/gastrostomy tube placement. (2) Parkinsonism: Status: Acute Assessment and plan: Unfortunately, unable to take her sinemet. Will require resumption of this as soon as there is a way to get pills in. Qualifiers: Parkinsonism type: primary Parkinsonism Qualified Code(s): G20 - Parkinson's disease (3) Atrial fibrillation: Status: Chronic Assessment and plan: S/p Watchman's procedure, not on anticoagulation. Rates have been controlled. Tele resumed today for IV lopressor Resume amiodarone once has a feeding tube. (4) Seizure: Status: Acute Assessment and plan: Post CVA - continue keppra (switched to IV). Controlled so far. (5) Dysphagia: Status: Acute Assessment and plan: In setting of CVA, Parkinsonism. Discussed with general surgery: the patient is not a candidate to have this procedure done at our facility due to her recent CVA. Will have speech therapy re-evaluate tomorrow. If continues to not be able to swallow, feeding tube will have to be arranged via [facility]. Qualifiers: Dysphagia type: oropharyngeal phase Qualified Code(s): R13.12 - Dysphagia, oropharyngeal phase (6) Discharge planning issues: Status: Acute Assessment and plan: Full code (7) DVT prophylaxis: Status: Acute Assessment and plan: TEDs/SCDs Subjective Subjective Interval history since last seen: Sharonda is doing better today, per and friend. She is talking in full sentences. She denies a headache, has a hard time answering if she has chest pain, denies shortness of breath and nausea. She states she is hungry. She states she would love to sit in the chair because she has not been out of bed yet today, per patient. She was able to say that in a full sentence. The patient states she is sure that her midline abdominal incision is from cholecystectomy. Exam Narrative Exam Narrative: General: Pleasant frail elderly female who is more alert today, A&Ox1, able to complete sentences but sometimes have difficulty answering questions. HEENT: EOMI, dry MM Heart: RRR Lungs: CTAB Abdomen: soft, full, nontender, no edema Extremities: no edema BLE's Objective Last Vital Signs Temp 36.7 C 02/08/21 13:15 Pulse 58 L 02/08/21 11:58 Resp 20 02/08/21 11:58 BP 148/54 H 02/08/21 11:58 Pulse Ox 95 02/08/21 11:58 Laboratory Results - last 24 hr 02/07/21 02/08/21 02/08/21 15:45 07:12 07:12 WBC 11.56 H D RBC 3.38 L Hgb 10.7 L D Hct 32.9 L D MCV 97.3 H MCH 31.7 MCHC 32.5 RDW 14.6 Plt Count 200 MPV 9.8 Immature Gran % 0.3 Neutrophils % 67.7 Lymphocytes % 16.5 Monocytes % 9.7 Eosinophils % 5.1 Basophils % 0.7 Nucleated RBC % 0 Absolute Neutrophils 7.83 H Absolute Lymphocytes 1.91 Absolute Monocytes 1.12 H Absolute Eosinophils 0.59 Absolute Basophils 0.08 PT INR APTT Sodium 144 Potassium 3.1 L Chloride 107 Carbon Dioxide 28.4 Anion Gap 8.6 BUN 29 H Creatinine 1.3 H Estimated GFR/1.73 m2 39.31 Glucose 185 H D Calcium 8.3 L Magnesium 1.9 Urine Color Yellow Urine Clarity Sl Cloudy Urine pH 5.0 Ur Specific [place] >= 1.030 H Urine Protein Negative Urine Ketones Negative Urine Blood Trace-intact H Urine Nitrite Negative Urine Bilirubin Negative Urine Urobilinogen 0.2 Ur Leukocyte Esterase Small H Urine RBC Negative Urine WBC 5-10 Ur Epithelial Cells Negative Urine Crystals Negative Urine Bacteria Many Urine Casts Negative Urine Mucus Negative Urine Other Negative Ur Culture Indicated? C&S Done As Ordered Urine Glucose 250 H 02/08/21 02/08/21 07:12 12:30 WBC RBC Hgb 11.8 Hct 36.3 MCV MCH MCHC RDW Plt Count MPV Immature Gran % Neutrophils % Lymphocytes % Monocytes % Eosinophils % Basophils % Nucleated RBC % Absolute Neutrophils Absolute Lymphocytes Absolute Monocytes Absolute Eosinophils Absolute Basophils PT 10.5 INR 1.0 APTT 23.2 Sodium Potassium Chloride Carbon Dioxide Anion Gap BUN Creatinine Estimated GFR/1.73 m2 Glucose Calcium Magnesium Urine Color Urine Clarity Urine pH Ur Specific [place] Urine Protein Urine Ketones Urine Blood Urine Nitrite Urine Bilirubin Urine Urobilinogen Ur Leukocyte Esterase Urine RBC Urine WBC Ur Epithelial Cells Urine Crystals Urine Bacteria Urine Casts Urine Mucus Urine Other Ur Culture Indicated? Urine Glucose
[2021-02-08] MEDS: cefTRIAXone 1 GM/50 ML BAG IVPB (18:06)
[2021-02-08] MEDS: Normal Saline 500 ML 30 ML IV (18:06)
[2021-02-09] VITALS (13 sets, daily range): BP systolic 96–150; BP diastolic 57–75; PULSE 64–74; RESP 14–18; TEMP 35.4–36.8; O2SAT 94–98
[2021-02-09] MEDS: Insulin Aspart 300 UNITS/3 ML PEN SC ×4 (04:30→21:18)
[2021-02-09] MEDS: Metoprolol 5 MG/5 ML VIAL 2.5 MG IVP (04:34)
[2021-02-09 07:15] LABS: Abs Immature Grans 0.04 10^3/uL (0.0-0.06); Absolute Basophil Count 0.07 10^3/uL (0.0-0.2); Absolute Lymphocyte Count 1.72 10^3/uL (1.2-3.4); Absolute Neutrophil Count 8.54 10^3/uL (1.2-6.7); Basophils % 0.6; Eosinophils % 3.4; HCT 34.1 % (36.0-46.0); HGB 11.2 g/dL (11.2-15.7); Immature Grans % 0.3; Lymphocytes % 14.5; MCH 31.3 pg (27.0-33.0); MCHC 32.8 % (32.0-36.0); MCV 95.3 fL (80-95); Monocytes % 9.3; Neutrophils % 71.9; Nucleated RBC 0 %; Platelet Count 221 10^3/uL (130-400); RBC 3.58 10^6/uL (3.93-5.22); RDW 14.4 % (11.7-14.6); RDW-SD 50.8 fL; WBC 11.88 10^3/uL (4.4-10.8)
--- NOTE | 2021-02-09 07:24 | PDOC.CMPRO ---
- If Service Date Differs Date of service: 02/09/21 Time of Service: 07:24 Care Management Progress Note S/O: Sharonda was sitting upright in bed when CM met with her. She shared that she met with PT and a speech therapist today and felt her swallowing evaluation went good. She also met with Dr. Vu in Palliative care today. A: Sharonda is an 80 year old female admitted to [facility] on 02/03/21 with hemorrhagic stroke. P: Sharonda developed dysphasia over the weekend. Speech therapy evaluation was completed today. Per ST: Pureed diet with thin liquids, resume PO medication, she may have whole pills in pudding. Sharonda was previously accepted at [facility] (waiting on a PA by her insurance.) Sharonda is gaining strength. CM will continue to follow discharge needs.
[2021-02-09 07:33] LABS: Anion Gap 8.7 mmol/L (3-11); BUN 22 mg/dL (7-18); CO2 28.3 mmol/L (21.0-32.0); Calcium 8.3 mg/dL (8.5-10.1); Chloride 106 mmol/L (98-107); Estimated GFR 53.21 (mL/min/1.73m2); Glucose 163 mg/dL (74-106); Magnesium 1.6 mg/dL (1.8-2.4); Potassium 3.1 mmol/L (3.5-5.1); Sodium 143 mmol/L (136-145)
[2021-02-09] MEDS: Lactated Ringers 1,000 ML 125 ML IV (08:56)
[2021-02-09] MEDS: MAGNESIUM SULFATE 2 GM/50 ML BAG IVPB (08:56)
[2021-02-09] MEDS: Normal Saline Flush 10 ML SYR IVP ×2 (08:57→09:55)
--- NOTE | 2021-02-09 08:59 | PCNE_ITS ---
Date of service: 02/09/21 Time of Service: 08:59 History of Present Illness History of Present Illness Chief Complaint: CVA Narrative: From H and P: History of Present Illness History of Present Illness Chief Complaint: weakness Narrative: This 80-year-old female presented with weakness on the right side. She has had 2 previous hemorrhagic strokes ever treated in [facility]. The first stroke caused her to have weakness on the left side. Her stated that Botox was used to treat this stroke with some benefit. She had another hemorrhagic stroke which caused her to have difficulty concentrating and because other mental status changes. Her said she was treated again with Botox without any change after the second stroke. She and her drove here from [place] to attend a 50th reunion of the [employer] and were planning on returning this morning. Last night after having dinner and watching a ball game the noted that she was leaning to the right when he helped her to the bathroom. She has had chronic urinary incontinence dating from the previous stroke. She had a slight headache last night and he gave her acetaminophen with some relief. This morning she was still leaning to the right and did not feel well and was having trouble sitting up in bed. He checked her sugar and it was over 300 and because of her persistent symptoms brought her to the hospital. The right-sided weakness was persisting. She chronically has some dribbling from the left side of her mouth from her previous stroke. Her headache today is improved. Her stated that she did fall and hit her head about 2.5 to 3 weeks ago but did not notice any neurologic change at that time. She was evaluated in the emergency department here. Attempts were made to transfer her to a tertiary care center at [facility] or [facility] [place] but they cannot take her because of bed limitations and they did not feel she needed any acute intervention. They did recommend checking another CT scan tomorrow and keeping the bed elevated 30 degrees. Over the last few days Sharonda has done better per family. Staff told me this morning that she was unresponsive. I went in to see her in the morning and she was talking nonsensical sentences. I came back to see her in the evening. There was no family there. We do not have the James's phone number. She could tell me that she was in the hospital but did not know what states she was in. She could not tell me what was going on with her. She could not tell me what she states she came from. Consults Consult date: 02/09/21 Requesting physician: Candida Mattson Assessment and Plan Assessment and plan (1) Atrial fibrillation: Status: Chronic (2) Dysphagia: Status: Acute Qualifiers: Dysphagia type: oropharyngeal phase Qualified Code(s): R13.12 - Dysphagia, oropharyngeal phase (3) Seizure: Status: Acute (4) Hemorrhagic stroke: Status: Acute (5) Palliative care patient: Status: Acute Assessment and plan: Unfortunately the there are no family members here today. We do not have a phone number so I could not call them. I have tried twice to talk with Sharonda to get a better understanding of what she is doing, her goals, and to discuss CODE STATUS. I did not feel she had capacity to do so today. I will asked my colleague, Dr. Sunshine, to see her on Tuesday or Tuesday to discuss these matters, but has to be present. Feeding tube?she did pass the swallowing test therefore does not require this. She states that she had a good meal today Thank you very much for this consult Review of Systems Narrative: She states she is doing much better. But she could not tell me what much better meant [facility] Medical History (Updated 02/09/21 @ 10:46 by Irina Vasquez NP) Asthma Atrial fibrillation Diabetes mellitus Hemorrhagic stroke Palliative care patient Parkinson disease UTI (urinary tract infection) Social History Smoking/Tobacco Use Status: Never Smoking risk assessment performed?: Yes Alcohol Intake: never Substance use type: does not use Exam Narrative Exam Narrative: She is sitting in her chair slumped to the left. Her eyes are equal and reactive. Her heart is regular. Lungs very little air movement and could not cooperate with exam. Her neuro deficits are well documented on her H&P Results Last Vital Signs Temp 96.4 F L 02/09/21 07:50 Pulse 64 02/09/21 07:50 Resp 18 02/09/21 07:50 BP 112/58 L 02/09/21 07:50 Pulse Ox 94 02/09/21 07:50 Labs Result diagrams: 02/09/21 06:09 02/09/21 06:09 Labs: Laboratory Results - last 24 hr 02/08/21 02/09/21 02/09/21 12:30 06:09 06:09 WBC 11.88 H RBC 3.58 L Hgb 11.8 11.2 Hct 36.3 34.1 L MCV 95.3 H MCH 31.3 MCHC 32.8 RDW 14.4 Plt Count 221 MPV 10.0 Immature Gran % 0.3 Neutrophils % 71.9 Lymphocytes % 14.5 Monocytes % 9.3 Eosinophils % 3.4 Basophils % 0.6 Nucleated RBC % 0 Absolute Neutrophils 8.54 H Absolute Lymphocytes 1.72 Absolute Monocytes 1.10 H Absolute Eosinophils 0.40 Absolute Basophils 0.07 Sodium 143 Potassium 3.1 L Chloride 106 Carbon Dioxide 28.3 Anion Gap 8.7 BUN 22 H D Creatinine 1.0 Estimated GFR/1.73 m2 53.21 Glucose 163 H Calcium 8.3 L Magnesium 1.6 L
[2021-02-09] MEDS: Pantoprazole 40 MG VIAL IVP (09:55)
[2021-02-09] MEDS: levETIRAcetam 500 MG in Normal Saline 100 ML 400 MG IVPB (10:15)
--- NOTE | 2021-02-09 10:37 | W.PM.PROGNOT ---
Date of Service Date of service: 02/09/21 Time of Service: 10:39 Assessment and Plan Assessment and plan (1) Hemorrhagic stroke: Status: Acute Assessment and plan: Due to amyloid angiopathy. Hx hemorrhagic CVA x2 prior. BPs improved since starting on IV lopressor. She was seen by ST who recommended pureed diet with thin liquids. Resume PO medications. Continue PT. PT to get OOB with stedy lift when she has a higher chair in the room. She was seen by Palliative today. (2) UTI (urinary tract infection): Status: Acute Assessment and plan: Continue Ceftriaxone, day #3. (3) Parkinsonism: Status: Acute Assessment and plan: Sinemet resumed now that she can take PO medications. Qualifiers: Parkinsonism type: primary Parkinsonism Qualified Code(s): G20 - Parkinson's disease (4) Atrial fibrillation: Status: Chronic Assessment and plan: S/p Watchman's procedure, not on anticoagulation. Rates have been controlled. Amiodorone resumed. (5) Seizure: Status: Acute Assessment and plan: Post CVA - continue keppra. (6) Dysphagia: Status: Acute Assessment and plan: In setting of CVA, Parkinsonism. ST evaluation complete. Recommendations are: Pureed diet with thin liquids, may have whole pills in pudding. Diet order updated. PO medication resumed. Qualifiers: Dysphagia type: oropharyngeal phase Qualified Code(s): R13.12 - Dysphagia, oropharyngeal phase (7) Discharge planning issues: Status: Acute Assessment and plan: Full code (8) DVT prophylaxis: Status: Acute Assessment and plan: TEDs/SCDs Subjective Subjective Interval history since last seen: Sharonda reports that she is doing better. She had a ST evaluation, and recommendations were made for pureed diet with thin liquids, may take pills whole in pudding. She would prefer to take orals over feeding tube. She states her late had a feeding tube before he of cancer. She continues to work with PT. She feels she is gaining some strength. PT getting a higher chair for her to use [id number] to get her OOB. She denies SOB, coughing, wheezing, CP/pressure, palpitations. She endorses some abdominal discomfort, having a BM helped. She was seen by Dr. Vu, Palliative, today. Exam Narrative Exam Narrative: General: frail, elderly female laying in bed, awake and alert, pleasant. Slow to respond but answers questions appropriately. HEENT: atraumatic, makes eye contact, missing some teeth, mucous membranes moist. Neck: supple. Cardiovascular: regular rate and rhythm, nontachycardic. Respiratory: respirations appear even and unlabored. Lung sounds are clear throughout. GI: abdomen soft, nontender on palpation, nondistended, +BS. : álvarez catheter draining clear, yellow urine. Extremities: right hand grasp weaker than left. Right foot also weaker than left. Able to move all 4 extremities. Objective Last Vital Signs Temp 36.1 C L 02/09/21 09:51 Pulse 69 02/09/21 09:54 Resp 14 02/09/21 09:51 BP 96/57 L 02/09/21 09:54 Pulse Ox 97 02/09/21 09:51 Laboratory Results - last 24 hr 02/08/21 02/09/21 02/09/21 12:30 06:09 06:09 WBC 11.88 H RBC 3.58 L Hgb 11.8 11.2 Hct 36.3 34.1 L MCV 95.3 H MCH 31.3 MCHC 32.8 RDW 14.4 Plt Count 221 MPV 10.0 Immature Gran % 0.3 Neutrophils % 71.9 Lymphocytes % 14.5 Monocytes % 9.3 Eosinophils % 3.4 Basophils % 0.6 Nucleated RBC % 0 Absolute Neutrophils 8.54 H Absolute Lymphocytes 1.72 Absolute Monocytes 1.10 H Absolute Eosinophils 0.40 Absolute Basophils 0.07 Sodium 143 Potassium 3.1 L Chloride 106 Carbon Dioxide 28.3 Anion Gap 8.7 BUN 22 H D Creatinine 1.0 Estimated GFR/1.73 m2 53.21 Glucose 163 H Calcium 8.3 L Magnesium 1.6 L
[2021-02-09] MEDS: POTASSIUM CHLORIDE 20 MEQ/100 ML BAG 50 MEQ IVPB (10:43)
--- NOTE | 2021-02-09 11:01 | W.INDIABCONS ---
Date of service: 02/09/21 Time of Service: 11:01 Diabetes Inpatient Consult DESCRIPTION/ASSESSMENT: At time of visit, pt was busy with Resp therapist, awaiting CUT OFF SAW OPERATOR PIPE BLANKS eval today. 80 year old female admitted with hemmoragic stroke with dysphagia with hx of parkinson's dx, DM 2. NPO x 6 days. Pt to have PEG placement if unable to swallow per CUT OFF SAW OPERATOR PIPE BLANKS consult today. DM meds include glimepiride 0.5 mg/d, 500 mg metformin BID. No A1C on record. BMI indicates class 1 obesity. BLood sugars well controlled with sliding scale insulin since admit. INTERVENTION: No DM education given at this time, will await CUT OFF SAW OPERATOR PIPE BLANKS recommendations as may transition to PEG feedings. If that is case, will make TF recommendations for optimal glycemic control. PLAN: will follow up with CUT OFF SAW OPERATOR PIPE BLANKS consult recommendations will provide needed recommendations for education/diet or enteral feedings. Time Spent in Nutritional Counseling and Treatment: 0
[2021-02-09] MEDS: Amiodarone 200 MG TAB PO (12:06)
[2021-02-09] MEDS: Sertraline 50 MG TAB 100 MG PO (12:06)
[2021-02-09] MEDS: Carbidopa 25/Levodopa 100 TAB PO (12:06)
--- NOTE | 2021-02-09 12:22 | SPP_ITS ---
Date of service: 02/09/21 Time of Service: 11:45 Subjective Pt was working with PT upon arrival and was agreeable to swallow treatment/re- assessment. Per nsg, pt with decline in overall status over the weekend, unable to swallow and was made NPO. Family and MD were considering PEG tube placement however due to recent CVA pt would need to go to [facility]. Objective/Assessment/Plan Objective Treatment Techniques &Outcomes: Pt repositioned upright in bed at start of session. Consulted with PT, recommend pt get oob to chair for all meals. PT reports pt needs a higher chair in her room so she can use sit to stand. Pt could also be hoyered if needed/if unable to locate a different chair. Pt managed 16 oz thin liquids via cup sips (with hand over hand assistance due to weakness and use of non-dominant hand--pt is right handed) as well as via straw with no overt s/s aspiration. Mild difficulty with sucking straw initially however suspect due to dry mouth and sucking ability improved with subsequent attempts. Staff may also consider cutting straws shorter if pt fatigues. Pt managed 4 oz applesauce and 4 oz pudding, 3/4 tsp at a time, without difficulty. Pt able to close lips around spoon and remove material. Bolus manipulation/formation and A-P transport appear adequate. Mild oral residue post swallows cleared with liquid wash. Pt does not have upper dentures with her, unsafe to trial soft solids however recommend family bring dentures in order to advance pts diet as tolerated. Trialed meds whole, one at a time in pudding. Pt able to swallow with no overt s/s aspiration or other s/s oral dysphagia. Recommendations: Out of bed to chair for meals. Diet: Puree solids Liquids: Thin liquids Assistance: Pt requires assistance to be fed however self feeding with non- dominant hand should be encouraged/supported. Medication Administration: Give meds whole, one at a time, in pudding. Follow with sips of liquids as needed. Provide safe size bites, pace rate of intake, allow complete swallows between bites. May consider Fluconazole if thrush does not improve. Patient/Caregiver/Staff Education:: Pt and staff education provided current swallowing status and recommendations. Assessment Pts swallowing function has improved from when last seen by WAITER/WAITRESS BAR as well as from nsg reports over the weekend. Recommend initiate oral diet as above with safe swallow protocol in place, possible rotary kiln operator consult may be needed to maximize nutrition with modified diet if pt has poor intake. Recommend continued dysphagia treatment with possible Modified Barium Swallow study to instrumentally assess the structural and functional integrity of the swallowing mechanisms. Plan Continue swallow treatment. Nsg to contact WAITER/WAITRESS BAR for any decline in swallowing status. Recommendations Diet: 4-Pureed/Extremely Thick Liquids: 0-Thin Liquids Strategies/Adaptions: Upright and out of bed in a chair for all meals/snacks, Use supports to ensure upright/midline posture, Pace rate of intake, Small bites, Small sips, Alternate liquids and solids, Upright for at least 30 minutes after meal and Oral care at least 2x/day Total Time Spent: 45 minutes Coding
--- NOTE | 2021-02-09 14:40 | CHAPLAIN ---
Sharonda was resting in bed when I visited. Her was with her. He said for the first time in a while, he's seeing some progress. Sharonda is going to be given some food after her speech evaluation. He also said that Sharonda seemed to brighten up yesterday for the first time in a long time. Sharonda and her are from [place], and here in [place] visiting family. Her said he is grateful that these medical issues arose while they were here visiting family and not while they were on the road traveling.
--- NOTE | 2021-02-09 15:08 | PT.INTREAT ---
Date of service: 02/09/21 Time of Service: 15:08 PT Notes Visit Reasons: Hemorrhagic Stroke Inpatient Physical Therapy Treatment Note [facility] Date: 02/09/2021 PRECAUTIONS: Left hemineglect. Activity as tolerated and fall. Bradykinesic. SUBJECTIVE: Now able to respond in longer sentences compared to last week. Denies headache, chest pain but did report fatigue and weakness. Wants to go home whenever she is able to do so. OBJECTIVE: PAIN: None reported BED MOBILITY/TRANSFERS Rolling moderate assist of 2 Supine to sit moderate assist of 2 Sit to supine moderate assist of 2 Sit to stand moderate assist of 2 using STEDY lft Stand to sit moderate assist of 2 using steady left Bed to chair moderate assist of 2 using STEDY lft THERA ACT: Initiated static sitting at edge of bed to allow weightbearing through trunk and pelvis. Patient tolerated 3 minutes of unsupported sitting while holding onto the left bed rail with standby assist of PT and nurse Lulú. Patient was able to do this for about 20 seconds for 2-3 repetitions. Moderate to maximal verbal, visual, and tactile cues given for upright head/trunk positioning and overall safety.. Initiated static standing using STEDY lift to allow weight bearing through trunk, pelvis, and bilateral lower extremities. Moderate to maximal visual, tactile, and verbal cueing provided for hand placement as well as for improved BLE and trunk control. Worked on trunk mobilization and direct stimulation of trunk extensors as well knee extensors to facilitate more stable upright stance. ASSESSMENT: As of today, patient is upgraded to bed to reclining chair transfer with assistance of 2 people utilizing the study left to allow for upright trunk positioning for all meals per recommendation of speech therapist Marilyn. Patient will require pillow positioners to maximize midline trunk alignment and frequent rechecks on chair every hour or 2 for safety. Delayed responses resulting from chronic parkinsonism as well as CVA diagnosis currently limit ability of patient to participate in session, requires repetition of instructions as well as maximal verbal, tactile, and visual cueing for execution of tasks. PLAN: Continue with functional mobility progression as initially established PT POC as tolerated by patient TREATMENT CODE/TIME: Session 1??[id number] x 35 minutes beginning at 11:20 AM. Session 2??[id number] x 42 minutes beginning at 15:08 PM.
[2021-02-09] MEDS: cefTRIAXone 1 GM/50 ML BAG IVPB (17:30)
[2021-02-09] MEDS: levETIRAcetam 500 MG TAB PO (21:02)
--- NOTE | 2021-02-09 21:29 | PGE_ITS ---
Date of Service Date of service: 02/09/21 Time of Service: 21:44 Subjective Subjective Interval history since last seen: This is a non-treatment/non-visit note. I received records from [facility] in [place]. Those records are cooper mmarized here. -Admit 10/03/19 for 5.1cm R frontal intracerebral hemorrhage (along with small SAH and intraventricular hemorrhage) manifested by headache, AMS, aphasia, and left hemiparesis. She had undergone Watchman on 09/04/19, but was still on Xarelto at the time of presentation. A diagnosis of amyloid angiopathy was entertained at that time, but ultimately dismissed due to lack of evidence on MRI imaging and attribution of hemorrhage to Xarelto. Thus, aspirin was re-started on 10/17/19. During this admission, Parkinsonian features were first noted. -10/09/19-11/01/19: admitted at [facility]. Sinemet 25/100mg BID was started during this time. -SARI (10/17/19): normal EF, no wall motion abnormalities. LA dilated. 21mm Watchman in JOSE. -SARI (09/08/20): normal EF, no wall motion abnormalities. LA dilated. 21mm Watchman in JOSE. Objective Last Vital Signs Temp 36.8 C 02/09/21 16:29 Pulse 68 02/09/21 16:29 Resp 18 02/09/21 16:29 BP 117/66 02/09/21 16:29 Pulse Ox 97 02/09/21 16:29 Laboratory Results - last 24 hr 02/09/21 02/09/21 06:09 06:09 WBC 11.88 H RBC 3.58 L Hgb 11.2 Hct 34.1 L MCV 95.3 H MCH 31.3 MCHC 32.8 RDW 14.4 Plt Count 221 MPV 10.0 Immature Gran % 0.3 Neutrophils % 71.9 Lymphocytes % 14.5 Monocytes % 9.3 Eosinophils % 3.4 Basophils % 0.6 Nucleated RBC % 0 Absolute Neutrophils 8.54 H Absolute Lymphocytes 1.72 Absolute Monocytes 1.10 H Absolute Eosinophils 0.40 Absolute Basophils 0.07 Sodium 143 Potassium 3.1 L Chloride 106 Carbon Dioxide 28.3 Anion Gap 8.7 BUN 22 H D Creatinine 1.0 Estimated GFR/1.73 m2 53.21 Glucose 163 H Calcium 8.3 L Magnesium 1.6 L
[2021-02-09] MEDS: Lactated Ringers 1,000 ML 80 ML IV (23:58)
[2021-02-10] VITALS (8 sets, daily range): BP systolic 115–138; BP diastolic 64–73; PULSE 59–73; RESP 14–18; TEMP 35.6–36.5; O2SAT 93–98
[2021-02-10 07:06] LABS: HGB 9.9 g/dL (11.2-15.7); MCH 31.6 pg (27.0-33.0); MCV 95.8 fL (80-95); MPV 9.9 fL (8.0-11.0); Platelet Count 187 10^3/uL (130-400); RBC 3.13 10^6/uL (3.93-5.22); RDW 14.4 % (11.7-14.6); RDW-SD 50.5 fL; WBC 8.23 10^3/uL (4.4-10.8)
[2021-02-10 07:19] LABS: Anion Gap 8.4 mmol/L (3-11); BUN 20 mg/dL (7-18); CO2 27.6 mmol/L (21.0-32.0); CREATININE 1.1 mg/dL (0.55-1.02); Calcium 8.1 mg/dL (8.5-10.1); Chloride 107 mmol/L (98-107); Estimated GFR 47.67 (mL/min/1.73m2); Glucose 181 mg/dL (74-106); Sodium 143 mmol/L (136-145)
[2021-02-10 07:28] LABS: Potassium 2.9 mmol/L (3.5-5.1)
[2021-02-10] MEDS: Sertraline 50 MG TAB 100 MG PO (08:14)
[2021-02-10] MEDS: Amiodarone 200 MG TAB PO (08:14)
[2021-02-10] MEDS: Carbidopa 25/Levodopa 100 TAB PO ×2 (08:14→11:55)
[2021-02-10] MEDS: Potassium Chloride Liquid 20 MEQ PKT PO (08:14)
[2021-02-10] MEDS: Insulin Aspart 300 UNITS/3 ML PEN SC ×3 (08:15→21:48)
[2021-02-10] MEDS: POTASSIUM CHLORIDE 20 MEQ/100 ML BAG 50 MEQ IVPB ×2 (08:15→10:33)
[2021-02-10] MEDS: Omeprazole 20 MG CAPCR PO (08:15)
[2021-02-10] MEDS: levETIRAcetam 500 MG TAB PO ×2 (08:15→21:48)
[2021-02-10 08:16] LABS: Magnesium 1.8 mg/dL (1.8-2.4)
--- NOTE | 2021-02-10 09:01 | OTTR_ITS ---
Date of service: 02/10/21 Time of Service: 07:55 Occupational Therapy Notes Occupational Therapy Inpatient Treatment Note Date: 02/10/21 PRECAUTIONS: Fall, standard, full SUBJECTIVE: Pt was sitting in bed and notes that she is tired today. She is agreeable to OT Session. OBJECTIVE: PAIN: no c/o pain BATHING: sitting in bed with mod vc throughout Upper Body: (I) face and abdomen, mod (A) (B) UE and max (A) back Lower Body: max (A) DRESSING: sitting in bed with mod vc throughout Upper Extremity: mod (A) [employer] [facility] gown Lower Extremity: NT GROOMING: sitting in bed min (A) with brushing hair ASSESSMENT/PLAN: Pt has made increased (I) in her ADLs, she is able to follow simple commands and is more responsive verbally. OT will continue to work with pt with increased (I) with her (B) UE and functional activity tolerance. TREATMENT CODES/TIME: 70329, 20 minutes (07:55) MIRIAM [facility]
--- NOTE | 2021-02-10 11:12 | CMPROGNOTE_ITS ---
- If Service Date Differs Date of service: 02/10/21 Time of Service: 11:12 Care Management Progress Note S/O: Sharonda was sitting upright in her chair when CM met with her. She was cooperative, pleasant with noted confusion. Sharonda shared that she is concerned that her hasn't been able to come see her because the screeners at the door are not letting him in. CM spoke with her Lopez by phone and he advises that Sharonda has undiagnosed dementia to some degree and he has been in every day. He shares that Sharonda knows him, however he questions if she knows that he is her . Sharonda is planning on being discharged to [facility] tomorrow and verbalizes that it would be to help her regain strength so she can make the trip back to [place]. Also, Lopez reports that he has no set timeline, he is staying with his nephew in [place] and things are getting taken care of at home. A: Sharonda is an 80 year old female admitted to [facility] on 02/03/21 with hemorrhagic stroke. P: Sharonda has been accepted to [facility]. CM is still waiting on prior authorization, which unfortunately needed to be resubmitted due to spelling error (patients last name) in our system. Her will transport her via private vehicle vs facility w/c van. CM will continue to follow.
--- NOTE | 2021-02-10 13:58 | W.PM.PROGNOT ---
Date of Service Date of service: 02/10/21 Time of Service: 13:58 Assessment and Plan Assessment and plan (1) Atrial fibrillation: Status: Chronic Assessment and plan: S/p Watchman's procedure, not on anticoagulation. Rates have been controlled. Amiodorone resumed. (2) Dysphagia: Status: Acute Assessment and plan: In setting of CVA, Parkinsonism. ST evaluation complete. Recommendations are: Pureed diet with thin liquids, may have whole pills in pudding. Diet order updated. PO medication resumed. Qualifiers: Dysphagia type: oropharyngeal phase Qualified Code(s): R13.12 - Dysphagia, oropharyngeal phase (3) Seizure: Status: Chronic Assessment and plan: Post CVA - continue keppra. (4) Hemorrhagic stroke: Status: Acute Assessment and plan: Due to amyloid angiopathy. Hx hemorrhagic CVA x2 prior. BPs improved since starting on IV lopressor. She was seen by ST who recommended pureed diet with thin liquids. Resume PO medications. Continue PT. Palliative following. (5) UTI (urinary tract infection): Status: Acute Assessment and plan: treated with ceftriaxone day 4 urine culture grew lactobacillus species, ? contaminant will discontinue (6) Urinary retention: Status: Acute Assessment and plan: required indwelling catheter. will discontinue and monitor for retention, bladder scan as needed. if retains urine, Dr Hernández consult (7) Discharge planning issues: Status: Acute Assessment and plan: care management following. will be discharged to assisted facility when medically stable, anticipate next 1-[address] Mattson Subjective Subjective Patient reports: no new complaints, feels better, tolerating liquids well, no bowel movement and afebrile; denies shortness of breath Exam Narrative Exam Narrative: She is sitting in her chair slumped to the left. Her eyes are equal and reactive. Her heart is regular. Lungs very little air movement and could not cooperate with exam. Her neuro deficits are well documented on her H&P Const General: cooperative, no acute distress and frail appearing Nutritional Appearance: well nourished Orientation: alert, awake, oriented to person and oriented to place [facility] Head: normocephalic and atraumatic Eyes Visual Gandhi: normal visual gandhi by confrontation Alignment and Position: alignment normal Sclera: sclerae normal Cornea: corneas normal Pupils: PERRL (R pupil oval rather than round (previous cataract surgery per pt)) EOM: No nystagmus Neck Neck: normal visual inspection and no lymphadenopathy Resp Effort & Inspection: normal respiratory effort and no cough Auscultation: clear to auscultation bilaterally, no rales and no rhonchi Cardio Jugular venous pressure: no JVD Rate: regular rate Rhythm: regular rhythm Heart Sounds: S1 normal, S2 normal and no murmurs GI Inspection: normal to inspection Palpation: soft, no hepatosplenomegaly and nontender Skin General skin exam: no rashes or lesions noted Neuro General: moves all extremities Cranial Nerves: no nystagmus Speech: other (slowed speech with dysarthria) Motor: strength not 5/5 throughout (RUE 3-4/5, LUE 4/5. BLE 2/5 prox muscles.), pronator drift, movement abnormality noted (cogwheel rigidity of BUE at elbows) and other (Increased weakness of BUE and BLEs) Extrem General: normal to inspection, no pedal edema, no calf tenderness and no edema Psych Affect: normal affect Objective Last Vital Signs Temp 36.4 C L 02/10/21 07:18 Pulse 59 L 02/10/21 07:18 Resp 16 02/10/21 07:18 BP 136/73 02/10/21 07:18 Pulse Ox 97 02/10/21 07:18 Laboratory Results - last 24 hr 02/10/21 02/10/21 06:13 06:13 WBC 8.23 D RBC 3.13 L Hgb 9.9 L Hct 30.0 L MCV 95.8 H MCH 31.6 MCHC 33.0 RDW 14.4 Plt Count 187 MPV 9.9 Sodium 143 Potassium 2.9 L Chloride 107 Carbon Dioxide 27.6 Anion Gap 8.4 BUN 20 H Creatinine 1.1 H Estimated GFR/1.73 m2 47.67 Glucose 181 H Calcium 8.1 L Magnesium 1.8
--- NOTE | 2021-02-10 15:42 | PT.INTREAT ---
Date of service: 02/10/21 Time of Service: 11:30 PT Notes Visit Reasons: Hemorrhagic Stroke Inpatient Physical Therapy Treatment Note [facility] Date: 02/10/2021 PRECAUTIONS: Fall, activity as tolerated SUBJECTIVE: Sharonda is pleasant and agreeable to participating in PT. She states that she does not feel well today, and per nursing, she did not sleep well overnight. OBJECTIVE: PAIN: No c/o pain BED MOBILITY/TRANSFERS Sit-supine: Max A with HOB flat Sit-stand: Mod A x2 with STEDY Stand-sit: Mod A with STEDY Chair-bed: STEDY with CGA due to poor trunk control GAIT: Unable THEREX: Patient was instructed in a seated global strengthening program, although was not able to participate much, requiring AAROM and PROM for exercise completion, due to significant weakness, globally. In p.m., patient is instructed in a standing (in STEDY) global strengthening program, requiring Mod A for all exercises due to global weakness and limited trunk control. ASSESSMENT: Patient tolerated sessions with increased fatigue. She continues to require significant assist for all transfers and bed mobility at this time. She also requires AAROM/PROM for all exercise completion due to global weakness. PLAN: Continue with bed mobility and transfer training, as well as global strengthening for improved activity tolerance and mobility. TREATMENT CODE/TIME: Session 1: 20 minutes; [id number] (11:30) Session 2: 25 minutes; [id number] x2 (12:35)
[2021-02-10] MEDS: Lactated Ringers 1,000 ML 80 ML IV (16:40)
--- NOTE | 2021-02-10 17:02 | SPP_ITS ---
Date of Service February 10, 2021 Subjective Pt and her were speaking with physician when RETAIL BANKING MANAGER arrived. Coding
--- NOTE | 2021-02-10 17:02 | AMB.SPSTP ---
Date of Service February 10, 2021 Subjective Pt and her were speaking with physician when MICE RAISER arrived. Coding
--- NOTE | 2021-02-10 17:15 | SPP_ITS ---
Date of service: 02/10/21 Time of Service: 16:15 Subjective Pt and her were speaking with physician when APPETIZER PACKER arrived. Pt was reclined but alert in her chair. While verbal, she was intermittently confused when interacting and responding to questions. She did agree to a snack with APPETIZER PACKER today for diet modification/analysis. She was positioned fully upright and supports used to promote midline posture. Pt required frequent repositioning by APPETIZER PACKER to stay upright. Objective/Assessment/Plan Objective Treatment Techniques &Outcomes: Liquid consistency trials: Thin, open cup and straw sips. Pt unable to take open cups sips with ease today, repeatedly bringing cup near mouth but then lowering before consuming, appearing more familiar and fluid with straw sips. Pt more impulsive with drinking today, taking consecutive and large sips, resulting in coughing immediately post swallow x1. APPETIZER PACKER implemented pinching straw to limit liquid bolus size to small and single sips. No further overt s/s of aspiration noted following this strategy implementation. Solid consistency trials: Minced and moist, soft and bite sized. Pt managed 4 bites of minced and moist foods without overt s/s of aspiration and mild oral residue. Reduced mastication observed, though small amount of chewing needed for this texture. No overt s/s of aspiration seen following bites of soft and bite sized textures, however, increased risk for aspiration and choking given no improvement to mastication and oral management skills despite increase in texture. Reduced and unsafe mastication skills seen for soft and bite sized textures at this time. Patient/Caregiver/Staff Education:: Education provided to staff and pt's regarding outcomes of today's swallow tx and recommended implementation of additional safe swallow strategies during supervised meals. Continue with current diet at this time. Continued swallow therapy recommended. Staff should closely monitor pt's liquid intake and if pt is drinking impulsively and taking consecutive swallows, utilize pinching the straw to control flow to small single sips. APPETIZER PACKER also provided education regarding coordinating administration of Sinemet medication prior to meals in order to help with potential rigidity of swallow muscles for eating and drinking. APPETIZER PACKER contacted dietary to request later meals to allow Sinemet to be administered prior to eating for better efficacy. Assessment Per nursing report, pt managing current diet of puree, including taking pills with pudding. Nursing has not needed to cut pt's straw, stating that she is drinking thin liquids well. APPETIZER PACKER trialed solid texture upgrades today, including minced and moist and soft and bite sized. Pt with reduced mastication and demonstrating limited chewing. Given outcomes, soft and bite sized textures not appropriate at this time. In addition, further trials of minced and moist textures with APPETIZER PACKER recommended prior to diet upgrade. No overt s/s of aspiration observed when given very small bites of these foods, however, with notable reduced mastication and pt also very easily distracted, recommend continue current diet (puree, thin liquids) to reduce risks of aspiration and choking until further and consistent management of minced and moist textures assessed during swallow therapy sessions with APPETIZER PACKER. Pt attempted to feed self and did well with spoon trials. When trying to manage finger foods, she required increased support from APPETIZER PACKER. Pt regularly reaching for other items on tray, such as other food, drinks, napkins, etc. APPETIZER PACKER recommends removing all items from tray and presenting pt with choices for single bites or sips at a time, further reducing distractions. Pt more impulsive with drinking today and additional safe swallow strategy of staff/caregiver pinching straw to limit to single and small sips recommended to further reduce risks of aspiration. Plan Continue swallow treatment. Recommendations Diet: 4-Pureed/Extremely Thick Liquids: 0-Thin Liquids Other: Medications: Whole, one at a time, in pudding. Strategies/Adaptions: Upright and out of bed in a chair for all meals/snacks, Use supports to ensure upright/midline posture, Small bites, Small sips (staff to pinch straw to limit liquid bolus to small and single sips as needed), Alternate liquids and solids, Ensure complete mastication & swallow before next bite, Check oral cavity frequently, Feed in low-stimulation environment (reduce distractions, including remove items from tray and provide choices of single bites or sips at a time) and Upright for at least 30 minutes after meal Supervision: Direct supervision via of [facility] staff, assist w/feeding (including pinching straw to limit to small and single sips as needed, reduce distractions, please continue to offer foods/drinks across meal and redirect pt distraction to ensure proper intake) Total Time Spent: Time In: 4:15 pm Time Out: 5:00 pm Total Time: 45 minutes Charge Code: 43042-[id number] of Swallowing Dysfunction Coding
--- NOTE | 2021-02-10 20:48 | W.PALPGNOTE ---
Date of service: 02/10/21 Time of Service: 14:48 Assessment and Plan Assessment and plan (1) Palliative care patient: Status: Acute Assessment and plan: Initially seen by Dr Vu. Not clear enough then to make medical decisions; also, was not present. Nursing and both report an remarkable improvement in cognition day of my visit. Sharonda is able to fill out paperwork for COLST and health care agent, though her signature is not legible. Her verbal consent was witnessed by speech therapy and me. (2) Generalized weakness: Status: Acute Assessment and plan: Acute on chronic weakness with this stroke. PT noted she could only sit independently for 3 minutes. They have a 2700 mile car trip to go home. Mina reported his son would drive with them, when Sharonda is able. Mina and Sharonda expect she will need to be a rehab for several weeks, until she is strong enough to make the trip. (3) Hemorrhagic stroke: Status: Acute Assessment and plan: Her third. Mina showed me her health data from the previous few months: her BS, BP and HR have all been controlled. No spikes in BP. (4) Presence of Watchman left atrial appendage closure device: Status: Acute Assessment and plan: Mina and Sharonda said this was inserted after stroke #2. (5) Goals of care, counseling/discussion: Status: Acute Assessment and plan: We reviewed and filled out her [place] COLST and the health care agent paperwork. We will do a universal POLST prior to her returning to [place]. Can be done when she is at rehab. Sharonda has been seen by the entire [facility] Care team; any one of us can fill out this second form with her. (6) Health care proxy on file: Status: Acute Assessment and plan: She chose Mina, her spouse, as her agent with her second son, Mandie, as back-up. Her oldest son's health care decisions do not align with Sharonda's. (7) POLST (Physician Orders for Life-Sustaining Treatment): Status: Acute (8) DNR (do not resuscitate): Status: Acute (9) DNI (do not intubate): Status: Acute (10) Nieves catheter in place: Status: Acute Assessment and plan: Inserted due to urinary retention. May need to stay in place until transfer to rehab. (11) Urinary incontinence: Status: Chronic Assessment and plan: Usually incontinent, since her second stroke. Subjective Subjective Patient reports: feels better; denies tolerating a regular diet and voiding w/o difficulty Interval history since last seen: I met with Sharonda and her second of 6 years, Mina. (She was previously to his brother, Amber, who in 2010.) I reviewed her history and Dr Vu's pall care notes, as well as spoke to hospitalist Antonina Tello, ISABEL and the care management team. Mina and Sharonda reviewed the main events of her recent health history. She had her first stroke in September 2018, which left her with a temporary left-sided paralysis, but cognitively intact. Her second stroke was in October 2019, and resulted in a more devastating immediate impairment. She was in an inpatient hospital for 10 days, during which she was under quarantine; this was very tough on both Sharonda and Mina. She spent 20 more days in an acute rehab. When she came home, she had obvious cognitive deficits. Her took over her BS readings. He started taking her BP and HR daily. He managed her medications. She had become incontinent and needed help with toileting. Both Mina and Sharonda acknowledge that over the 3 months prior to this stroke, she'd become weaker and more forgetful. She sleeps more. She is confused from time to time. She and Mina have been talking about dying more, and she states she is not afraid of it. Then, one week ago, as they were packing up to drive back to [place], Mina thought she was having a bad day. Sharonda was more confused. She was weaker. She couldn't follow instructions. Mina thought he should have her checked out, prior to their departure. It was determined that she had another stroke. Mina has been very worried about her until today. She's still very weak, but he reports that he is relieved to see that she's making sense. She could give me the dates of her earlier strokes. She could give me a social history and part of a family history. She grew weepy when we talked about her only daughter's , and when we discussed her not visiting her oldest son in [place], when she returns home, as he and his are not vaccinated. We discussed her goals of care and her wishes re: attempted resuscitation vs allowing a natural . Sharonda was very clear that she would not want CPR, she would not want to be on a ventilator. Mina said that they have started filling out this paperwork at home in [place], but had never finished it. He supported his 's decisions. He reported that she has been expressing this same wishes prior to this admission. Note that he speech therapist Marybeth came in to evaluate Sharonda's swallow at the end of the visit, and served as the second witness to her health care agent paperwork. Exam Const General: cooperative, no acute distress and frail appearing Nutritional Appearance: well nourished Orientation: alert, awake, oriented to person and oriented to place HENCO Head: normocephalic and atraumatic Ears: hearing grossly normal bilaterally General nose exam: external nose normal Face and sinus: normal facial exam and face symmetric Mouth: oral mucosae normal Eyes General: appearance normal, both eyes and all related structures (though eyes appear more widely spaced than average) Alignment and Position: alignment normal Sclera: sclerae normal Cornea: corneas normal Pupils: PERRL (R pupil oval rather than round (previous cataract surgery per pt)) Neck Neck: normal visual inspection and no lymphadenopathy Resp Effort & Inspection: normal respiratory effort, able to speak in complete sentences and no cough Auscultation: clear to auscultation bilaterally, no rales and no rhonchi Cardio Jugular venous pressure: no JVD Rate: regular rate Rhythm: regular rhythm Heart Sounds: S1 normal, S2 normal and no murmurs GI Inspection: normal to inspection Palpation: soft, no hepatosplenomegaly and nontender Skin General skin exam: no rashes or lesions noted and dry skin Neuro General: patient alert, patient awake, moves all extremities and unable to assess gait Cognition: normal cognition (mild cognitive impairment at 02/10 visit) Speech: other (slowed speech with dysarthria) Motor: strength not 5/5 throughout and movement abnormality noted (cogwheel rigidity of BUE at elbows) Extrem General: normal to inspection, no pedal edema, no calf tenderness and no edema Psych Appearance: grossly normal Mental Status: mental status grossly normal Speech and Movement: delayed speech and slowed movement Mood: congruent mood Affect: sad (when talking about her kids) Attitude: cooperative Insight: fair Judgment: judgment good Other: her judgment re: her goals of care, COLST wishes were consistent with those she has expressed to her over the previous years, according to her her desire to appoint her as her health care agent, and second son Mandie as her back-up agent, also were consistent with the history she gave about her marriage and the beliefs/judgment of her kids.. Objective Last Vital Signs Temp 97.7 F 02/10/21 20:36 Pulse 73 02/10/21 20:36 Resp 14 02/10/21 20:36 BP 138/64 02/10/21 20:36 Pulse Ox 93 02/10/21 20:36 Laboratory Results - last 24 hr 02/10/21 02/10/21 06:13 06:13 WBC 8.23 D RBC 3.13 L Hgb 9.9 L Hct 30.0 L MCV 95.8 H MCH 31.6 MCHC 33.0 RDW 14.4 Plt Count 187 MPV 9.9 Sodium 143 Potassium 2.9 L Chloride 107 Carbon Dioxide 27.6 Anion Gap 8.4 BUN 20 H Creatinine 1.1 H Estimated GFR/1.73 m2 47.67 Glucose 181 H Calcium 8.1 L Magnesium 1.8
[2021-02-10] MEDS: Melatonin 3 MG TAB 6 MG PO (21:48)
[2021-02-11] VITALS (8 sets, daily range): BP systolic 127–156; BP diastolic 65–83; PULSE 65–77; RESP 16–18; TEMP 35.6–36.5; O2SAT 94–96
[2021-02-11] MEDS: Lactated Ringers 1,000 ML 80 ML IV (04:51)
[2021-02-11] MEDS: Omeprazole 20 MG CAPCR PO (07:35)
[2021-02-11] MEDS: Sertraline 50 MG TAB 100 MG PO (07:35)
[2021-02-11] MEDS: levETIRAcetam 500 MG TAB PO ×2 (07:35→19:55)
[2021-02-11] MEDS: Amiodarone 200 MG TAB PO (07:35)
[2021-02-11 07:37] LABS: Anion Gap 2.9 mmol/L (3-11); BUN 15 mg/dL (7-18); CO2 27.1 mmol/L (21.0-32.0); Calcium 8.1 mg/dL (8.5-10.1); Chloride 110 mmol/L (98-107); Estimated GFR 53.21 (mL/min/1.73m2); Glucose 176 mg/dL (74-106); Magnesium 1.6 mg/dL (1.8-2.4); Potassium 3.7 mmol/L (3.5-5.1); Sodium 140 mmol/L (136-145)
[2021-02-11] MEDS: Carbidopa 25/Levodopa 100 TAB PO ×2 (07:42→13:07)
[2021-02-11] MEDS: Insulin Aspart 300 UNITS/3 ML PEN SC ×4 (08:35→22:24)
[2021-02-11] MEDS: MAGNESIUM SULFATE 2 GM/50 ML BAG IVPB (09:09)
--- NOTE | 2021-02-11 10:09 | PDOC.CMPRO ---
- If Service Date Differs Date of service: 02/11/21 Time of Service: 10:09 Care Management Progress Note S/O: Sharonda was sitting up in her chair when CM met with her. She was pleasant and engaged in conversation although her responses were delayed. Sharonda verbalizes that she is waiting for her insurance to approve her stay at the rehab center across the street. She states that she is feeling good today, and wants to be able to walk a hundred miles. A: Sharonda is an 80 year old female admitted to [facility] on 02/03/21 for hemorrhagic stroke. P: Sharonda is planning to be discharged to [facility] tomorrow at 2:45pm via w/c van. Sharonda will need a Covid test done prior to discharge. CM continues to support discharge needs.
--- NOTE | 2021-02-11 10:19 | OT.INTREAT ---
Date of service: 02/11/21 Time of Service: 07:00 Occupational Therapy Notes Occupational Therapy Inpatient Treatment Note Date: 02/11/21 PRECAUTIONS: Fall, standard, full SUBJECTIVE: Pt was sitting in bed and notes that she is tired today. She is agreeable to OT Session and states that she slept well last night. OBJECTIVE: PAIN: no c/o pain DRESSING: sitting in bed with mod vc throughout OT assessed pts dressing with UE and LE and educated pt on adaptive equipment including sock aid, dressing stick and shoe horn. OT was able to have pt try this but she was not able to perform her dressing routines at this time. The goal is to continue to progress pt as her symptoms allow to increase her overall functional (I). OT will work with pt again tomorrow on Adaptive equipment and modify as needed. TREATMENT CODES/TIME: 80660, 10 minutes Karen Rivera OTR/[facility]
[2021-02-11] MEDS: Nystatin POWDER 15 GM JAR TP ×2 (12:06→19:55)
--- NOTE | 2021-02-11 13:40 | INPN_ITS ---
Date of service: 02/11/21 Time of Service: 13:40 PT Notes Visit Reasons: Hemorrhagic Stroke Physical Therapy Inpatient progress Note Date: 02/11/2021 Dates of service: 02/04/2021 through 02/11/2021 Referring Doctor: Charline Boyd MD PT Orders: PT CONSULT: Urgent. Safety consult for D/C Precautions: Fall. L Hemineglect. Activity as tolerated. Subjective: Sharonda appears to be much more conversant today, being able to continuously express self, compared to day of evaluation. She got to describe her kids, her family life and business without any interruption or struggle to find words. On evaluation she only responded with 1-2 word phrases/sentences. Did not report any fatigue during the morning session but did vebalize of being tored during this afternoon's session. Objective: General Observation: Supine in bed, morning care provided by Nurse Wilkinson and MECCA Freire. Patient was seen about an hour later. Mental Status: More focused to activity and more ready with verbal responses. Richer thought process. Motor execution significantly improved compared to day of evaluation. Intermittent intentional tremors in L UE seen with sitting activity. More awake and engaged today than I have ever experienced with her to be since start of care. Pain: None reported Vital Signs: WNL as closely monitored by nursing staff ROM: Right Upper Extremity: Shoulder Flexion allows only about 90 degrees. Shoulder abduction about 20 degrees. Elbow flexion WFL. Wrist flexion WFL. Functional opening and closing of hand WFL. Left Upper Extremity: Shoulder Flexion allows only about 100 degrees. Shoulder abduction about 40 degrees. Elbow flexion WFL. Wrist flexion WFL. Functional opening and closing of hand WFL but comparatively diminished than the R. Right Lower Extremity: Able to bend about 20 degrees at the hip while seated on chair. Knee flexion -10 to 90 degrees while seated at edge of bed. Knee extension -10 degrees. Ankle dorsiflexion about 10 degrees aboveneutral. Ankle plantarflexion WFL. Left Lower Extremity: Hip flexion allows up to 20 degrees passively. Hip abduction about 10 degrees. Knee flexion -20 to 90 degrees while seated at edge of bed. Knee extension -20 degrees. Ankle dorsiflexion about 10 degrees below neutral. Ankle plantarflexion WFL. Strength: Right Upper Extremity: Shoulder flexors 3-/5. Shoulder abductors 3-/5. Elbow flexors 3/5. Elbow extensors 3/5. Deputy Insurance Commissioner weak but functional. Left Upper Extremity: Shoulder flexors 3-/5. Shoulder abductors 3-/5. Elbow flexors 3/5. Elbow extensors 3/5. Deputy Insurance Commissioner weak but functional. Right Lower Extremity: Hip flexors 3-/5. Hip abductors 3-/5. Knee flexors 3-/5. Knee extensors 3-/5. Ankle dorsiflexors 3-/5. Ankle plantarflexors 4-/5. Left Lower Extremity: Hip flexors 3-/5. Hip abductors 3-/5. Knee flexors 3-/5. Knee extensors 3-/5. Ankle dorsiflexors 3-/5. Ankle plantarflexors 4-/5. Bed Mobility/Transfers: Supine to sit moderate assist with moderate cues for safe/correct technique Sit to supine moderate assist with moderate cues for safe/correct technique Sit to stand contact-guard assist of 2 using a steady lift moderate cues for safe/correct technique. Arising from bedside recliner patient required moderate assist of 2 using same device with nurse Win assisting. Stand to sit contact-guard assist of 2 using a steady lift moderate cues for safe/correct technique THERA ACT: 1. Continued with static sitting at edge of bed to allow weight bearing through trunk and pelvis. Patient tolerated 34 minutes of this activity with L hand holding onto raised L head rail and patient's right hand onto depressed L leg rail. Moderate to maximal verbal, visual, and tactile cues given for upright head/trunk positioning and overall safety. 2. Continued with static standing using STEDY lift to allow weight bearing through trunk, pelvis, and bilateral lower extremities. Sit<>Stand activity x 3 reps with CGA of 2 in the morning. In the afternoon patient tolerated x 3 reps of static standing for 10 counts each time. Moderate to maximal visual, tactile, and verbal cueing provided for hand placement as well as for improved BLE and trunk control. Worked on trunk mobilization and direct stimulation of trunk extensors as well knee extensors to facilitate more stable upright stance. Gait: Unable to assess at this time Balance: Static Sitting: Fair Dynamic Sitting: Fair Static Standing: Poor Dynamic Standing: Unable Special Tests: Mobility Limitations Standardized Measure [facility]-PAC 6 clicks Basic Mobility Inpatient Short Form: Raw Score: 8 CMS Score: 87% deficit Informed Consent/Education: Patient and were instructed in purpose of PT consult and plan of care. Agreeable to proceed with established PT POC to achieve personal goals. Assessment: Strength beginning to improve. Cognitive awareness and engagement in creasing. Critical to schedule session within an hour of Sinemet intake may facilitate better functional performance duirng session. Per ST, coordination with neurologist/hospitalist will be made regarding spreading out Sinemet intake to possibly 3x/day instead of twice. R-sided weakness superimposed on previous L-sided hemiparesis. Dynamic sitting balance and tolerance beginning to imrpove. Patient will benefit from [facility] facility placement for continued skilled physical therapy services in order to progress mobility level, strength, and balance as motor recovery may require a longer time to achieve. Patient may potentially be a long-term SNF patient. Patient continues to present with clinical signs and symptoms consistent with current/admitting diagnoses that have resulted to mobility limitations, gait instability, generalized weakness, and overall ADL decline as demonstrated by the following impairment level findings: 1. Decreased strength to B UE/LE major muscle groups 2. Impaired sitting/standing balance 3. Impaired activity tolerance 4. Limitation of joint range of motion in B UE/LE as above 5. Decreased cognitive ability 6. L hemineglect (decreasing) 7. Lateral trunk lean to R (less evident today) Impairments are contributing to the following functional limitations: 1. Decline in bed mobility skills 2. Decline in transfer skills 3. Difficulty with ambulation without assistive device and physical assistance 4. Increased completion time for mobility ADL performance 5. Increased risk for falls 6. Inability to thrive at home due to deficits above Patient is assessed as a 32694 high complexity based on the following: History: 80-year-old female with past medical history as indicated above Examination: Demonstrable impairment in strength, balance, and mobility level with underlying impairments and functional limitations as exhibited above as well as deficit score of 87% utilizing the [facility] Mobility Inpatient Short Form Presentation: Evolving Decision Makin high complexity Goals: Goals X1 week 1. Supine-Sit supervision CONTINUE 2. Sit-Supine supervision CONTINUE 3. Sit-Stand contact-guard assist with FWW CONTINUE 4. Stand-Sit contact-guard assist with FWW CONTINUE 5. Bed-Chair contact-guard assist with FWW CONTINUE 6. Chair-Bed contact-guard assist with FWW CONTINUE 7. Minimal assist gait on level surface with use of front wheel walker for at least 50 feet without report of pain nor dyspnea CONTINUE 8. Minimal assist stair negotiation while holding onto B rails for at least 3 steps without report of pain nor dyspnea CONTINUE 9. Good static and dynamic standing balance/tolerance CONTINUE Plan of Care/Treatment Plan: 1-2x/day, 7 days/week x 1 week. Plan of care has been reviewed with the FUNDRAISING SALE REPRESENTATIVE providing the service under Physical Therapy direction. Initiate Physical Therapy intervention for pain management as needed, strengthening, bed mobility, transfers, gait, stairs, balance training, and use of assistive device. DISCHARGE RECOMMENDATIONS: Patient will benefit from [facility] facility placement for continued skilled physical therapy services in order to progress mobility level, strength, and balance in preparation for a safe discharge to home. TREATMENT CODE/TIME: Session 1--76580 x 40 minutes, 9711 0 x 13 minutes beginning at 10:34 AM. Session 2--9753 0 x 44 minutes beginning at 13:40 PM. Thank you for the opportunity to participate in the care of this patient. Ave Rosales PT, DPT, CLT [facility] [place], [place]
--- NOTE | 2021-02-11 14:59 | PGE_ITS ---
Date of Service Date of service: 02/11/21 Time of Service: 14:59 Assessment and Plan Assessment and plan (1) Atrial fibrillation: Status: Chronic Assessment and plan: S/p Watchman's procedure, not on anticoagulation. Rates have been controlled. Amiodorone resumed. (2) Dysphagia: Status: Acute Assessment and plan: In setting of CVA, Parkinsonism. ST evaluation complete. Recommendations are: Pureed diet with thin liquids, may have whole pills in pudding. Diet order updated. PO medication resumed. Qualifiers: Dysphagia type: oropharyngeal phase Qualified Code(s): R13.12 - Dysphagia, oropharyngeal phase (3) Seizure: Status: Chronic Assessment and plan: Post CVA - continue keppra. (4) Hemorrhagic stroke: Status: Acute Assessment and plan: Due to amyloid angiopathy. Hx hemorrhagic CVA x2 prior. BPs improved since starting on IV lopressor. She was seen by ST who recommended pureed diet with thin liquids. Resume PO medications. Continue PT. Palliative following. (5) UTI (urinary tract infection): Status: Acute Assessment and plan: treated with ceftriaxone day 4 urine culture grew lactobacillus species, ? contaminant will discontinue (6) Urinary retention: Status: Acute Assessment and plan: required indwelling catheter. will discontinue and monitor for retention, bladder scan as needed. if retains urine, Dr Hernández consult (7) Discharge planning issues: Status: Acute Assessment and plan: care management following. will be discharged to custodial facility when medically stable, anticipate next 1-[address] Mattson Subjective Subjective Patient reports: no new complaints and afebrile Interval history since last seen: staff noticed while doing julia-care that stool was coming from her vagina. failed a voiding trial. Exam Const General: cooperative, no acute distress and frail appearing Nutritional Appearance: well nourished Orientation: alert, awake, oriented to person and oriented to place [facility] Head: normocephalic and atraumatic Eyes Visual Gandhi: normal visual gandhi by confrontation Alignment and Position: alignment normal Sclera: sclerae normal Cornea: corneas normal Pupils: PERRL (R pupil oval rather than round (previous cataract surgery per pt)) EOM: No nystagmus Neck Neck: normal visual inspection and no lymphadenopathy Resp Effort & Inspection: normal respiratory effort and no cough Auscultation: clear to auscultation bilaterally, no rales and no rhonchi Cardio Jugular venous pressure: no JVD Rate: regular rate Rhythm: regular rhythm Heart Sounds: S1 normal, S2 normal and no murmurs GI Inspection: normal to inspection Palpation: soft, no hepatosplenomegaly and nontender Skin General skin exam: no rashes or lesions noted Neuro General: moves all extremities Cranial Nerves: no nystagmus Speech: other (slowed speech with dysarthria) Motor: strength not 5/5 throughout (RUE 3-4/5, LUE 4/5. BLE 2/5 prox muscles.), pronator drift, movement abnormality noted (cogwheel rigidity of BUE at elbows) and other (Increased weakness of BUE and BLEs) Extrem General: normal to inspection, no pedal edema, no calf tenderness and no edema Psych Affect: normal affect Objective Last Vital Signs Temp 36.5 C 02/11/21 07:23 Pulse 74 02/11/21 08:42 Resp 18 02/11/21 07:23 BP 132/69 02/11/21 07:23 Pulse Ox 95 02/11/21 07:23 Laboratory Results - last 24 hr 02/11/21 06:16 Sodium 140 Potassium 3.7 D Chloride 110 H Carbon Dioxide 27.1 Anion Gap 2.9 L BUN 15 Creatinine 1.0 Estimated GFR/1.73 m2 53.21 Glucose 176 H Calcium 8.1 L Magnesium 1.6 L
--- NOTE | 2021-02-11 16:15 | W.SPSTP ---
Date of service: 02/11/21 Time of Service: 16:50 Subjective Patient assessed in am, reclined in bed with nursing staff assisting with álvarez catheter. ASSISTANT PRODUCTION EDITOR returned in late afternoon to reassess patient, who was awake yet lethargic, seated upright with HOB at 30 degrees with spouse Mina also present. Objective/Assessment/Plan Objective Treatment Techniques &Outcomes: Assessment / P.O. Trials Thin via cup sip, hand over hand assist: (-) overt s/s of aspiration, (+) anterior spillage noted pt politely refused additional po trials during visit, stating she was done for now Patient/Caregiver/Staff Education:: Discussed current recommendations and options for objective swallow imaging with patient and spouse (ie videofluoroscopic swallow study/modified barium swallow study, VFSE/MBSS; or fiberoptic endoscopic eval of swallow, FEES if patient is unable to maintain adequate trunk strength/control to participate in VFSE/MBSS), both of whom agreed with plan as appropriate. Assessment Pt continues to demonstrate reduced rotary mastication, ineffective chewing for diet level advancement this evening; IDDSI 5 soft and bite sized textures not appropriate at this time, recommend continuation of IDDSI Level 4 pureed solids / 0 thin liquids with risk management as outlined below, continued ASSISTANT PRODUCTION EDITOR treatment. May consider readjusting timing/frequency of carbidopa-levodopa as effect on swallowing coordination does appear more prominent in evening hours; highly recommend timing meals within hour of administering carbidopa-levodopa. Per discussion with PT, patient is an active participant in physical therapy treatment, however fatigues very quickly; currently patient is unable to maintain endurance required for being seated upright during VFSE/MBSS locally, but may be able to improve trunk strength/control with ongoing PT services to be able to participate in VFSE/MBSS during stay at [facility]. Patient may be appropriate for VFSE/MBSS at tertiary facility with hausted chair available or FEES (not available at [facility] currently). Recommend ongoing education/counseling with patient and spouse for decision making. Plan Continue direct swallow treatment with patient/caregiver education as indicated. Recommend continuation of ASSISTANT PRODUCTION EDITOR services upon d/c to [facility]; highly recommend outpatient swallow study (VFSE/MBSS or FEES) as appropriate; may consider coordinating swallow study with PT from [facility] to assist with mobility needs. Recommendations Diet: 4-Pureed/Extremely Thick Liquids: 0-Thin Liquids Strategies/Adaptions: Use supports to ensure upright/midline posture, Small bites, Small sips, Use straws (while monitoring for impulsivity; may pinch straw while drinking to reduce volume, trial Provale cup with assist), Check oral cavity frequently, Feed in low-stimulation environment (reduce auditory/visual distractions ) and Other (Remove all items from tray, presenting pt with choices for single bites or sips at a time, further reducing distractions; removing all items from tray and presenting pt with choices for single bites or sips at a time, further reducing distractions) Supervision: Direct supervision via of [facility] staff, assist w/feeding (encouraging independence whenever possible, hand over hand, etc) Recommendations: Further trials of minced & moist solid textures with ASSISTANT PRODUCTION EDITOR prior to diet upgrade. Total Time Spent: 45 mins Coding: CPT 99775 (treatment of swallowing dysfunction and/or oral function for feeding) Coding
[2021-02-11] MEDS: Normal Saline Flush 10 ML SYR (19:55)
[2021-02-11] MEDS: Melatonin 3 MG TAB 6 MG PO (22:24)
[2021-02-12 03:22] VITALS: BP 148/74; PULSE 64; RESP 16; TEMP 36.4; O2SAT 98
[2021-02-12 07:45] VITALS: BP 145/71; PULSE 63; RESP 20; TEMP 36.7; O2SAT 95
[2021-02-12] MEDS: Insulin Aspart 300 UNITS/3 ML PEN SC ×2 (08:48→12:07)
[2021-02-12] MEDS: levETIRAcetam 500 MG TAB PO (08:49)
[2021-02-12] MEDS: Amiodarone 200 MG TAB PO (08:49)
[2021-02-12] MEDS: Sertraline 50 MG TAB 100 MG PO (08:49)
[2021-02-12] MEDS: Carbidopa 25/Levodopa 100 TAB PO ×2 (08:49→14:10)
[2021-02-12] MEDS: Omeprazole 20 MG CAPCR PO (08:49)
[2021-02-12] MEDS: Nystatin POWDER 15 GM JAR TP (08:49)
--- NOTE | 2021-02-12 10:06 | DSE_ITS ---
Date of service: 02/12/21 Time of Service: 10:06 DS: Diagnosis Discharge Diagnosis (1) Atrial fibrillation: Status: Chronic (2) Dysphagia: Status: Acute (3) Seizure: Status: Chronic (4) Hemorrhagic stroke: Status: Acute (5) UTI (urinary tract infection): Status: Acute (6) Urinary retention: Status: Acute Discharge Plan Disposition Patient Disposition: SNF (LEVEL [facility] Condition: Stable Discharge Details Reason For Visit: Hemorrhagic Stroke Admit Date/Time: 02/03/21 21:50 Admit Provider: Gabriel Francois Attending Provider: Gabriel Francois [facility] Course: This is an 80 year old female with a history of Parkinsonism, and previous hemorrhagic strokes (most recently 1.5 years ago) who was admitted to [facility] for her third hemorrhagic stroke, likely related to cerebral amyloid angiopathy. she has a history of afib and was previously anticoagulated on xarelto when her first hemorrhagic stroke occurred. She was sent for a Watchman procedure in September of 2019, and aspirin was initiated. She had seizure like activity at some point after her first stroke and was placed on keppra which as been effective. Her work up on this admission shows left frontal intracerebral hemorrhagic stroke, manifested by right hemiparesis, mainly in right arm. She was evaluated by neurology with recommendations to continue to hold aspirin - would wait 14-21 days prior to re-starting. Adjust statin dose to avoid very low or high numbers -> goal 50-100. Her LDL is currently 68, her home dose was atorvastatin 60 mg, she will be sent home on 40 mg and defer to outpatient team to monitor and adjust. Treat and keep SBP <160 systolic which has been 120-140's while hospitalized. Her blood sugars have been managed with insulin while hospitalized but she can resume her metformin at discharge. She should monitor blood sugars ac/hs and adjust medication as needed and directed by outpatient team. Will add an A1C to am labs which will help guide further management as well. She has been receiving PT, OT, and GAS COMPRESSOR OPERATOR with slow improvement in her recovery. Speech therapy diet recommendations are: Pureed diet with thin liquids, may have whole pills in pudding. They highly recommend outpatient swallow study (VFSE/MBSS or FEES) as appropriate; may consider coordinating swallow study with PT from [facility] to assist with mobility needs. Diet: 4-Pureed/Extremely Thick Liquids: 0-Thin Liquids Strategies/Adaptions: Use supports to ensure upright/midline posture, Small bites, Small sips, Use straws (while monitoring for impulsivity; may pinch straw while drinking to reduce volume, trial Provale cup with assist), Check oral cavity frequently, Feed in low-stimulation environment (reduce auditory/visual distractions ) and Other (Remove all items from tray, presenting pt with choices for single bites or sips at a time, further reducing distractions; removing all items from tray and presenting pt with choices for single bites or sips at a time, further reducing distractions) Supervision: Direct supervision via staff, assist w/feeding (encouraging independence whenever possible, hand over hand, etc) Recommendations: Further trials of minced & moist solid textures with GAS COMPRESSOR OPERATOR prior to diet upgrade. Hospital course also complicated with UTI and urinary retention requiring an i ndwelling álvarez catheter. she failed a voiding trial and while inserting álvarez catheter back in it was noted that she had stool in vaginal vault. This was discussed with DR Worley from general surgery who recommends further outpatient evaluation by colorectal GI team for further recommendations. She received 4 days of IV ceftriaxone, urine culture grew lactobacillus species. She has been stable off antibiotics. Her goal is to get back to home in [place]. Home Meds and New Rx's Prescriptions: New atorvastatin 40 mg tablet 40 mg PO QHS Qty: 30 RF: 0 Continued metformin 500 mg Tablet 500 mg PO BID RF: 0 amiodarone 200 mg Tablet 200 mg PO DAILY RF: 0 levetiracetam [Keppra] 500 mg Tablet 500 mg PO BID RF: 0 sertraline 100 mg Tablet 100 mg PO DAILY RF: 0 carbidopa-levodopa 25-100 mg Tablet 1 tab PO BID RF: 0 cyanocobalamin (vitamin B-12) 2,000 mcg Tablet 2,000 mcg PO DAILY RF: 0 Discontinued atorvastatin 40 mg Tablet 60 mg PO DAILY RF: 0 glimepiride 1 mg Tablet 0.5 mg PO DAILY RF: 0 nortriptyline 10 mg Capsule 10 mg PO PRN PRNRF: 0 aspirin 81 mg Tablet 81 mg PO DAILY RF: 0 mirtazapine 7.5 mg Tablet 7.5 mg PO DAILY RF: 0 Discharge Instructions Instructions: Acute Urinary Retention in Women (ED), Stroke (DC) Stand Alone Forms: Nursing Discharge Form Referrals: GASTROENTEROLOGY,[facility] [place] [OTHER] - (Office will call with appointment. ) No,Local [Primary Care Provider] - (pcp upon return to home) Activity:: Activity as Tolerated Equipment/Supplies:: No Equipment Needed Diet:: Other Discharge Orders Discharge Orders: Discharge Order (Routine); Ordered 02/12/21 Ordered By: Antonina Tello Discharge Data Discharge Date/Time-TO BE ENTERED AT DEPARTURE: 02/12/21 14:59 DS: Summary Time Spent with Patient providing and/or coordinating discharge services: Greater than 30 minutes Status at Discharge Functional status at discharge: uses cane/walker Overall status at discharge: patient is not back to baseline Mental Status: mental status grossly normal Speech and Movement: slowed movement Mood: congruent mood Affect: normal affect Exam Const General: cooperative, no acute distress and frail appearing Nutritional Appearance: well nourished Orientation: alert, awake, oriented to person and oriented to place [place] Head: normocephalic and atraumatic Eyes Visual Gandhi: normal visual gandhi by confrontation Alignment and Position: alignment normal Sclera: sclerae normal Cornea: corneas normal Pupils: PERRL (R pupil oval rather than round (previous cataract surgery per pt)) EOM: No nystagmus Neck Neck: normal visual inspection and no lymphadenopathy Resp Effort & Inspection: normal respiratory effort and no cough Auscultation: clear to auscultation bilaterally, no rales and no rhonchi Cardio Jugular venous pressure: no JVD Rate: regular rate Rhythm: regular rhythm Heart Sounds: S1 normal, S2 normal and no murmurs GI Inspection: normal to inspection Palpation: soft, no hepatosplenomegaly and nontender Skin General skin exam: no rashes or lesions noted Neuro General: moves all extremities Cranial Nerves: no nystagmus Speech: other (slowed speech with dysarthria) Motor: strength not 5/5 throughout (RUE 3-4/5, LUE 4/5. BLE 2/5 prox muscles.), pronator drift, movement abnormality noted (cogwheel rigidity of BUE at elbows) and other (Increased weakness of BUE and BLEs) Extrem General: normal to inspection, no pedal edema, no calf tenderness and no edema Psych Mental Status: mental status grossly normal Speech and Movement: slowed movement Mood: congruent mood Affect: normal affect DS: Data Vitals/I&O Vitals and I&O: Vital Signs Temperature 36.7 C 02/12/21 07:45 Temperature Source Tympanic 02/12/21 07:45 Pulse 63 02/12/21 07:45 Pulse Rhythm Regular 02/12/21 01:50 Pulse 79 02/05/21 17:30 Respiratory Rate 20 02/12/21 07:45 Respiratory Effort Non-Labored 02/12/21 01:50 Respiratory Depth Normal 02/12/21 01:50 Respiratory Pattern Normal 02/12/21 01:50 Blood Pressure 145/71 H 02/12/21 07:45 Blood Pressure Mean 75 02/05/21 16:01 Blood Pressure Position Right Lateral 02/05/21 12:00 Pulse Oximetry 95 02/12/21 07:45 Oxygen Delivery Method Room Air 02/12/21 07:45 Oxygen Flow Rate 0 02/12/21 07:45 Pain Level 0 02/12/21 07:45 Comment 02/09/21 09:51 Intake & Output 02/11/21 02/11/21 02/12/21 11:59 23:59 11:59 Intake Total 1553.334 / 1923.334 370 / 1923.334 Output Total 450 / 1175 725 / 1175 900 / 900 Balance 1103.334 / 748.334 -355 / 748.334 -900 / -900 Weight 74.3 kg 74.8 kg Intake: IV 1313.334 / 1313.334 Oral 240 / 610 370 / 610 Output: Urine 450 / 1175 725 / 1175 900 / 900 Other: Urine Color Yellow Yellow Pale Yellow Urine Appearance Clear Clear Clear Comment Patient has not voided since removal of álvarez catheter; she denies any urge to urinate. Stool Size Large Stool Characteristics Soft Brown Data Completed and Pending Labs on day of discharge: Labs from last 24 hours 02/12/21 08:47 COVID-19 Source Pending SARS-CoV-2 (PCR) Pending Preliminary micro results at discharge 02/08/21 12:55 Blood Culture - Preliminary Blood NO GROWTH 72 HOURS 02/08/21 12:45 Blood Culture - Preliminary Blood NO GROWTH 72 HOURS [facility] Medical History (Updated 02/10/21 @ 21:17 by Lisbet De La Rosa MD) Asthma Atrial fibrillation Diabetes mellitus DNI (do not intubate) DNR (do not resuscitate) Álvarez catheter in place Goals of care, counseling/discussion Health care proxy on file Hemorrhagic stroke first September 2018 second October 2019 third February 2021 Palliative care patient Parkinson disease POLST (Physician Orders for Life-Sustaining Treatment) Presence of Watchman left atrial appendage closure device Urinary incontinence since second stroke in October 2019 UTI (urinary tract infection) Social History Smoking/Tobacco Use Status: Never Smoking risk assessment performed?: Yes Alcohol Intake: never Substance use type: does not use
--- NOTE | 2021-02-12 10:36 | PDOC.CMPRO ---
- If Service Date Differs Date of service: 02/12/21 Time of Service: 10:36 Care Management Progress Note S/O: Sharonda was sitting up in bed when CM met with her. She was pleasant, easily engaged in conversation with no trouble finding words. Sharonda advises that she is planning on a visit from her sister today before she is discharged. A: Sharonda is an 80 year old female admitted to [facility] on 02/03/21 for hemorrhagic stroke. P:Sharonda is planning to be discharged to [facility] today at 2:45pm via w/c van. Sharonda will need PT, OT and ST services following discharge. A swallow study is highly recommended. 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 CM continues to support discharge needs.
--- NOTE | 2021-02-12 10:40 | PDOC.CMDIS ---
- If Service Date Differs Date of service: 02/12/21 Time of Service: 10:40 LACE Index Scoring Tool - Questions: Length of Stay (in days): 7 - 13 Acuity (Admit via E.D.?): Yes Comorbidities: Cerebrovascular Disease, Diabetes w/o Complication, Connective Tissue Disease E.D. Visits: 1 - Answers: Total Score: 14 Risk of Readmission: High Risk Care Management Discharge Reason for Hospitalization: hemorrhagic stroke Discharge Plan: Discharged to [facility] for continued short term rehab before returning home to [place]. She will transport via w/c van at 2:45 pm today coordinated by this data analyst report writer. CM notified Holly in speech therapy she will follow up with [facility]. Will need to follow up with [facility] gastroenterolgy as an outpatient. Patient/Family Education Needs: Review of discharge instructions and plans, limitations, medications and diet. ask me three. Services Needed at Discharge: Occupational Therapy, Physical Therapy, [facility], Speech Therapy, Transportation
[2021-02-12 10:41] LABS: Source Nasal/Nares
--- NOTE | 2021-02-12 11:23 | PT.INTREAT ---
Date of service: 02/12/21 Time of Service: 10:45 PT Notes Visit Reasons: Hemorrhagic Stroke Inpatient Physical Therapy Treatment Note [facility] Date: 02/12/2021 PRECAUTIONS: Activity as tolerated SUBJECTIVE: Sharonda is pleasant and and agreeable to participating in PT. She states that she feels somewhat fatigued, and that she has been up in the chair this morning for a while. OBJECTIVE: PAIN: No c/o pain BED MOBILITY/TRANSFERS/GAIT: Held OOB activities THEREX: Patient was instructed in a global strengthening and stabilization program, as per flow sheet. She requires visual and tactile cueing for proper exercise performance, and completion of exercises. She requires assist for most exercises due to weakness and delayed response time. ASSESSMENT: Patient tolerated session without complaint of pain or increased fatigue. She requires visual and tactile cueing and assist for exercsie completion and proper exercise performance. PLAN: Patient to discharge to SNF level rehab later today, per provider. TREATMENT CODE/TIME: 20 minutes; [id number]
[2021-02-12 12:03] VITALS: BP 172/81; PULSE 67; RESP 18; TEMP 36.3; O2SAT 97
[2021-02-12 13:31] LABS: COVID-19 PCR Negative (Negative)
--- NOTE | 2021-02-12 13:42 | CHAPLAIN ---
Sharonda was resting in bed when I visited. She is scheduled to be discharged today. I brought her a prayershawl to take with her. She didn't mention her discharge, and I didn't either. She was pleasant and appreciative.
--- NOTE | 2021-02-13 08:33 | INDS_ITS ---
Date of service: 02/13/21 Time of Service: 08:33 PT Notes Visit Reasons: Hemorrhagic Stroke Physical Therapy Inpatient Discharge Summary Date: 02/13 Margaret Dockery MD/2020 Dates of service: 02/04/2021 through 02/12/2021 This is a clinical summary of care provided for the duration of dates listed above. No charge was made in the completion of this documentation. Referring Doctor: Charline Boyd MD PT Orders: PT CONSULT: Urgent. Safety consult for D/C Precautions: Fall. L Hemineglect. Activity as tolerated. Subjective: NT. See most recent [employer] notes. Stress Objective: General Observation: NT. See most recent [employer] notes. Mental Status: NT. See most recent [employer] notes. Pain: NT. See most recent [employer] notes. Vital Signs: NT. See most recent [employer] notes. ROM: Right Upper Extremity: Shoulder Flexion allows only about 90 degrees. Shoulder abduction about 20 degrees. Elbow flexion WFL. Wrist flexion WFL. Functional opening and closing of hand WFL. Left Upper Extremity: Shoulder Flexion allows only about 100 degrees. Shoulder abduction about 40 degrees. Elbow flexion WFL. Wrist flexion WFL. Functional opening and closing of hand WFL but comparatively diminished than the R. Right Lower Extremity: Able to bend about 20 degrees at the hip while seated on chair. Knee flexion -10 to 90 degrees while seated at edge of bed. Knee extension -10 degrees. Ankle dorsiflexion about 10 degrees aboveneutral. Ankle plantarflexion WFL. Left Lower Extremity: Hip flexion allows up to 20 degrees passively. Hip abduction about 10 degrees. Knee flexion -20 to 90 degrees while seated at edge of bed. Knee extension -20 degrees. Ankle dorsiflexion about 10 degrees below neutral. Ankle plantarflexion WFL. Strength: Right Upper Extremity: Shoulder flexors 3-/5. Shoulder abductors 3-/5. Elbow flexors 3/5. Elbow extensors 3/5. Molasses Feed Mixer weak but functional. Left Upper Extremity: Shoulder flexors 3-/5. Shoulder abductors 3-/5. Elbow flexors 3/5. Elbow extensors 3/5. Molasses Feed Mixer weak but functional. Right Lower Extremity: Hip flexors 3-/5. Hip abductors 3-/5. Knee flexors 3-/5. Knee extensors 3-/5. Ankle dorsiflexors 3-/5. Ankle plantarflexors 4-/5. Left Lower Extremity: Hip flexors 3-/5. Hip abductors 3-/5. Knee flexors 3-/5. Knee extensors 3-/5. Ankle dorsiflexors 3-/5. Ankle plantarflexors 4-/5. Bed Mobility/Transfers: Supine to sit moderate assist with moderate cues for safe/correct technique Sit to supine moderate assist with moderate cues for safe/correct technique Sit to stand contact-guard assist of 2 using a steady lift moderate cues for safe/correct technique. Arising from bedside recliner patient required moderate assist of 2 using same device with nurse Win assisting. Stand to sit contact-guard assist of 2 using a steady lift moderate cues for safe/correct technique THERJr ACT received for this episode of care: 1. Continued with static sitting at edge of bed to allow weight bearing through trunk and pelvis. Patient tolerated 34 minutes of this activity with L hand holding onto raised L head rail and patient's right hand onto depressed L leg rail. Moderate to maximal verbal, visual, and tactile cues given for upright head/trunk positioning and overall safety. 2. Continued with static standing using STEDY lift to allow weight bearing through trunk, pelvis, and bilateral lower extremities. Sit<>Stand activity x 3 reps with CGA of 2 in the morning. In the afternoon patient tolerated x 3 reps of static standing for 10 counts each time. Moderate to maximal visual, tactile, and verbal cueing provided for hand placement as well as for improved BLE and trunk control. Worked on trunk mobilization and direct stimulation of trunk extensors as well knee extensors to facilitate more stable upright stance. Gait: Unable to assess at this time Balance: Static Sitting: Fair Dynamic Sitting: Fair Static Standing: Poor Dynamic Standing: Unable Assessment: Functional gains have been inconsistent and variable. Scheduling sessions within Sinemet intake appears to have helped. Strength beginning to improve. Cognitive awareness and engagement increasing. Critical to schedule session within an hour of Sinemet intake may facilitate better functional performance duirng session. Per ST, coordination with neurologist/hospitalist will be made regarding spreading out Sinemet intake to possibly 3x/day instead of twice. R-sided weakness superimposed on previous L-sided hemiparesis. Dynamic sitting balance and tolerance beginning to imrpove. Patient will benefit from long term facility placement for continued skilled physical therapy services in order to progress mobility level, strength, and balance as motor recovery may require a longer time to achieve. Patient may potentially be a long-term SNF patient. Patient continues to present with clinical signs and symptoms consistent with current/admitting diagnoses that have resulted to mobility limitations, gait instability, generalized weakness, and overall ADL decline as demonstrated by the following impairment level findings: 1. Decreased strength to B UE/LE major muscle groups 2. Impaired sitting/standing balance 3. Impaired activity tolerance 4. Limitation of joint range of motion in B UE/LE as above 5. Decreased cognitive ability 6. L hemineglect (decreasing) 7. Lateral trunk lean to R (less evident today) Impairments are contributing to the following functional limitations: 1. Decline in bed mobility skills 2. Decline in transfer skills 3. Difficulty with ambulation without assistive device and physical assistance 4. Increased completion time for mobility ADL performance 5. Increased risk for falls 6. Inability to thrive at home due to deficits above Goals: Goals X1 week 1. Supine-Sit supervision NOT MET 2. Sit-Supine supervision NOT MET 3. Sit-Stand contact-guard assist with FWW NOT MET 4. Stand-Sit contact-guard assist with FWW NOT MET 5. Bed-Chair contact-guard assist with FWW NOT MET 6. Chair-Bed contact-guard assist with FWW NOT MET 7. Minimal assist gait on level surface with use of front wheel walker for at least 50 feet without report of pain nor dyspnea NOT MET 8. Minimal assist stair negotiation while holding onto B rails for at least 3 steps without report of pain nor dyspnea NOT MET 9. Good static and dynamic standing balance/tolerance NOT MET DISCHARGE RECOMMENDATIONS: Patient will benefit from long term facility placement for continued skilled physical therapy services in order to progress mobility level, strength, and balance in preparation for a safe discharge to home. TREATMENT CODE/TIME: NH Thank you for the opportunity to participate in the care of this patient. Ave Rosales PT, DPT, CLT [facility] [place], [place]
== END 2021-02-12 14:59 | disposition skilled nursing facility (03) | DRG 65 ==
LOC: ER 23:24 → ICU 23:29 → MS 02-05 18:45
PROVIDERS: Family Medicine; Internal Medicine; Nurse Practitioner; Physician Assistant; Admitting Provider Family Medicine; Emergency Provider Physician Assistant; Visit Provider Family Medicine
DX: I61.9 Nontraumatic intracerebral hemorrhage, unspecified (principal); G81.91 Hemiplegia, unspecified affecting right dominant side; I48.20 Chronic atrial fibrillation, unspecified; N39.0 Urinary tract infection, site not specified; E85.89 Other amyloidosis; I69.210 Attention and concentration deficit following other nontraumatic intracranial hemorrhage; I69.298 Other sequelae of other nontraumatic intracranial hemorrhage; R32 Unspecified urinary incontinence; E11.9 Type 2 diabetes mellitus without complications; J45.909 Unspecified asthma, uncomplicated; G20 Parkinson's disease; R53.1 Weakness; G40.909 Epilepsy, unspecified, not intractable, without status epilepticus; Z20.822 Contact with and (suspected) exposure to COVID-19; K59.00 Constipation, unspecified; R13.12 Dysphagia, oropharyngeal phase; I99.8 Other disorder of circulatory system; R33.9 Retention of urine, unspecified; Z66 Do not resuscitate
CPT/HCPCS: 36410; 36415; 36416; 51701; 70496; 70498; 80048; 80053; 80061; 82962; 85027; 87040; 87635; 92526; 92610; 93005; 96365; 97110; 97163; 97167; 97530; 97535; 99221; 99223; 99291; 70450; 70551; 71045; 71046; 81003; 81015; 83605; 83735; 84484; 85014; 85018; 85025; 85610; 85730; 87086; 93010; 93306; 99232; 99233; 99239; J0696; J1953; J3480; J3490

== ENCOUNTER → 2021-02-04 08:00 | Outpatient (BNVA) | payer MEDICARE, SELFPAY | PROVIDERS: Visit Provider Psychiatry & Neurology Neurology | DX: R69 Illness, unspecified (principal) ==

== ENCOUNTER 2021-02-16 13:38 | Emergency (ER) | payer OTHER, SELFPAY ==
[2021-02-16] VITALS (18 sets, daily range): BP systolic 159–215; BP diastolic 57–135; PULSE 67–84; RESP 14–21; TEMP 36.7; O2SAT 91–97
--- NOTE | 2021-02-16 13:45 | RT.EKG_ITS ---
APPROVED REPORT Exam: Resting ECG Reason for Exam: Altered mental status Patient Location: E HR:75 bpm ECG Measurements Heart Rate 75 AXIS ME [id number] P [id number] QRSd 98 QRS 42 QT 398 T 37 QTc 445 Conclusion Atrial fibrillation...? atrial activity Minimal ST depression, diffuse leads...ST <-0.03mV, ant/lat/inf significant motion artifact limits interpreation
--- NOTE | 2021-02-16 13:45 | DI.CT_ITS ---
Exam(s) CT HEAD - STROKE PROTOCOL EXAM: CT HEAD - STROKE PROTOCOL CLINICAL HISTORY: Altered mental status, Hx CVA. TECHNIQUE: Imaging Protocol: Axial computed tomography images with coronal and sagittal reformatted images were created and reviewed COMPARISON: CT CT HEAD WO from 02/07/2021 FINDINGS: Images are somewhat blurred by motion artifact. Patient said is also rotated towards the left side. There are no obvious skull fractures nor fluid in the visualized paranasal sinuses. The previously present hemorrhage in the left side of the corpus callosum has resolved. However, the re is now a prominent area of intra-axial hemorrhage the surrounding edema evident in the left tempor al lobe. The size of this new hemorrhage measures approximately 4.4 cm AP by 2 cm craniocaudal by 2. 3 cm wide and there is surrounding edema and some mass effect upon the ipsilateral lateral of left la teral ventricle but no shift of midline structures. There is vascular calcifications the skull base both in the vertebral arteries and intracavernous int ernal carotid arteries. There is abundant bilateral periventricular white matter chronic small vesse l disease. IMPRESSION: Prominent intra-axial hemorrhage in the left temporoparietal region with surrounding edema and mild m ass effect. No shift of midline structures. Previously present corpus callosum hemorrhage seen on the CT scan of 02/07/2021 has mostly resolved. Above findings are superimposed upon abundant bilateral periventricular white matter chronic microvas cular ischemia changes. RADIATION DOSE DELIVERED: 675.82mGy.cm Total DLP DATA REPOSITORY: All CT scans at this facility are submitted to the National Radiology Data Registry (NRDR) Dose Index Registry (DIR) with the [employer] (ACR). RADIATION OPTIMIZATION: All CT scans at this facility use at least one of these dose optimization te chniques: automated exposure control; mA and/or kV adjustment per patient size (includes targeted exa ms where dose is matched to clinical indication); or iterative reconstruction.
--- NOTE | 2021-02-16 13:50 | ED.GENADUL_ITS ---
Discharge Plan Disposition Patient Disposition: HOME Condition: Serious Discharge Details Clinical Impression: Hemorrhagic stroke, Altered mental status Primary Care Provider: Misa,Local ED Provider: Goldie Velazquez Home Meds and New Rx's Prescriptions: No Action metformin 500 mg Tablet 500 mg PO BID RF: 0 amiodarone 200 mg Tablet 200 mg PO DAILY RF: 0 levetiracetam [Keppra] 500 mg Tablet 500 mg PO BID RF: 0 sertraline 100 mg Tablet 100 mg PO DAILY RF: 0 carbidopa-levodopa 25-100 mg Tablet 1 tab PO BID RF: 0 cyanocobalamin (vitamin B-12) 2,000 mcg Tablet 2,000 mcg PO DAILY RF: 0 atorvastatin 40 mg tablet 40 mg PO QHS Qty: 30 RF: 0 magnesium hydroxide 400 mg/5 mL Suspension 30 ml PO QHS PRN (Reason: Constipation) RF: 0 Discharge Instructions Instructions: Stroke (DC) Additional Instructions: Palliative care will reach out to you tomorrow. I did speak with the staff at [facility] and [facility]. She did get 1 gram of magnesium IV and Keppra 1000mg IV as well. Please discuss further care and comfort measures with the rehab staff and their overseeing physician. Thank you for allowing us to care for you and your family. Referrals: Jessika Vu MD, LAITH [, [place] MEDICAL STAFF] - Ready,Lisbet Leung MD [ [facility] STAFF PHYSICIAN] - Discharge Data Discharge Date/Time-TO BE ENTERED AT DEPARTURE: 02/16/21 16:36 Medical Decision Making 80-year-old female presents to the ER via EMS with chief complaint of altered mental status. Patient is a resident at [facility] and [facility] and was found by staff to be responsive only to painful stimuli and is unable to take medicati ons or fluids by mouth. She is a DNR/DNI and does have a do not transfer order however was brought to our facility at the request of the . On initial exam patient does open eyes with painful stimuli list head is nonverbal and does not follow commands. 1358: Patient's is here at bedside he reports that the staff reported that patient was awake and watching TV, was able to eat breakfast and take her medications yesterday morning. This morning they were unable to wake her up. He last saw her on Tuesday. I did discuss our plan of care and work-up he is in agreement with plan. CT HEAD - STROKE PROTOCOL EXAM: CT HEAD - STROKE PROTOCOL CLINICAL HISTORY: Altered mental status, Hx CVA. TECHNIQUE: Imaging Protocol: Axial computed tomography images with coronal and sagittal reformatted images were created and reviewed COMPARISON: CT CT HEAD WO from 02/07/2021 FINDINGS: Images are somewhat blurred by motion artifact. Patient said is also rotated towards the left side. There are no obvious skull fractures nor fluid in the visualized paranasal sinuses. The previously present hemorrhage in the left side of the corpus callosum has resolved. However, there is now a prominent area of intra-axial hemorrhage the surrounding edema evident in the left temporal lobe. The size of this new hemorrhage measures approximately 4.4 cm AP by 2 cm craniocaudal by 2.3 cm wide and there is surrounding edema and some mass effect upon the ipsilateral lateral of left lateral ventricle but no shift of midline structures. There is vascular calcifications the skull base both in the vertebral arteries and intracavernous internal carotid arteries. There is abundant bilateral periventricular white matter chronic small vessel disease. IMPRESSION: Prominent intra-axial hemorrhage in the left temporoparietal region with surrounding edema and mild mass effect. No shift of midline structures. Previously present corpus callosum hemorrhage seen on the CT scan of 02/07/2021 has mostly resolved. Above findings are superimposed upon abundant bilateral periventricular white matter chronic microvascular ischemia changes. 1442: Discussed CT results with who verbalizes understanding, I did discuss options with him, he requests patient to be admitted, for fluids and medications, Palliative care paged, none available at this time. 1455: Hospitalist paged. 1548: Spoke with Dr. Campbell regarding patient case and details, at this time he does not recommend admission. Patient is DNR/DNI and can be kept comfortable at [facility], discussed plan of care with who verbalizes understanding and is in agreement. I did speak with care management regarding having palliative care reach out to him tomorrow. Patient to be transported back to [facility] and rehab by ambulance. HPI General Mode of arrival: EMS . Date/Time Provider Initiated Documentation: 02/16/21 13:42 . Limitations to Documentation: altered mental status . Information obtained by: family (), EMS and RN notes reviewed . HPI Narrative: 80-year-old female presents to the ER via EMS with chief complaint of altered mental status. Patient is a resident at [facility] and rehab and was found by staff to be responsive only to painful stimuli and is unable to take medications or fluids by mouth. She is a DNR/DNI and does have a do not transfer order however was brought to our facility at the request of the . On initial exam patient does open eyes with painful stimuli list head is nonverbal and does not follow commands. Related Data Home Medications Medication Instructions Recorded Confirmed amiodarone 200 mg PO DAILY 02/03/21 02/16/21 carbidopa-levodopa 1 tab PO BID 02/03/21 02/16/21 cyanocobalamin (vitamin B-12) 2,000 mcg PO DAILY 02/03/21 02/16/21 levetiracetam [Keppra] 500 mg PO BID 02/03/21 02/16/21 metformin 500 mg PO BID 02/03/21 02/16/21 sertraline 100 mg PO DAILY 02/03/21 02/16/21 atorvastatin 40 mg PO QHS #30 tab 02/12/21 02/16/21 magnesium hydroxide 30 ml PO QHS PRN 02/16/21 02/16/21 Previous Rx's Medication Instructions Recorded atorvastatin 40 mg PO QHS #30 tab 02/12/21 Allergies Allergy/AdvReac Type Severity Reaction Status Date / Time codeine Allergy Unverified 02/03/21 13:19 General Stated Complaint: AMS/LOC CRYSTAL: 2 Review of Systems All systems reviewed & are unremarkable except as noted in HPI and below Neurologic Neurologic: Reports as per HPI and Reports confusion Comments: Found to be unresponsive this am Psychiatric Psychiatric: Reports confusion [facility] Medical History (Updated 02/16/21 @ 16:02 by Goldie Velazquez) Asthma Atrial fibrillation Diabetes mellitus DNI (do not intubate) DNR (do not resuscitate) Nieves catheter in place Goals of care, counseling/discussion Health care proxy on file Hemorrhagic stroke first September 2018 second October 2019 third February 2021 Palliative care patient Parkinson disease POLST (Physician Orders for Life-Sustaining Treatment) Presence of Watchman left atrial appendage closure device Urinary incontinence since second stroke in October 2019 UTI (urinary tract infection) Social History Smoking/Tobacco Use Status: Never Smoking risk assessment performed?: Yes Alcohol Intake: never Drug use: Never Substance use type: does not use Additional Social history: Resides at [facility] unable to answer questions, information obtained from Exam Narrative Exam Narrative: Constitutional: Responsive to painful stimuli. GCS 7. Appears stated age. Normal body habitus. Head: Normocephalic, no obvious signs of trauma. Eyes: Pupils PERRLA, Red reflex noted, Eyelids symmetrical without lesions, discharge, or swelling. Patient intermittently opens eyes spontaneously. ENT: Bilateral TM's WNL, External ear normal to inspection, no mastoid TTP, swelling, or erythema, Nasal turbinates WNL, no nasal discharge. Normal dentition, Posterior pharynx WNL, no exudate. Chest: RRR, Normal S1, S2, distal pulses intact. Resp: Lungs clear to auscultation bilaterally, no wheezes, rales, or rhonchi. Abdomen: Nieves catheter in place, abdomen is soft nondistended. Musculoskeletal: Does not follow commands nor laborer high density press my hands or move her lower extremities. Skin: No suspicious rashes or lesions. Capillary refill less than 2 sec. Neurologic: See below. Hematologic/Lymphatic: No ecchymosis, no lymphadenopathy. Neuro General: patient obtunded Cognition: abnormal cognition Motor: tremor Comatose Patient: response to noxious stimuli present Course Vital Signs Vital signs: Vital Signs Temperature 36.7 C 02/16/21 13:43 Pulse 72 02/16/21 13:43 Respiratory Rate 14 02/16/21 13:43 Blood Pressure 188/73 H 02/16/21 13:43 Pulse Oximetry 94 02/16/21 13:43 Temperature 36.7 C 02/16/21 13:43 Temperature Source Skin 02/16/21 13:43 Pulse 72 02/16/21 13:43 Respiratory Rate 14 02/16/21 13:43 Blood Pressure 188/73 H 02/16/21 13:43 Blood Pressure Position Supine 02/16/21 13:43 Pulse Oximetry 94 02/16/21 13:43 Oxygen Delivery Method Room Air 02/16/21 13:43 Oxygen Flow Rate 0 02/16/21 13:43
[2021-02-16 14:00] LABS: Abs Immature Grans 0.13 10^3/uL (0.0-0.06); Absolute Basophil Count 0.05 10^3/uL (0.0-0.2); Absolute Eosinophil Count 0.02 10^3/uL (0.0-0.7); Absolute Lymphocyte Count 1.36 10^3/uL (1.2-3.4); Absolute Monocyte Count 1.09 10^3/uL (0.1-0.8); Absolute Neutrophil Count 9.47 10^3/uL (1.2-6.7); Basophils % 0.4; Eosinophils % 0.2; HCT 34.6 % (36.0-46.0); HGB 11.6 g/dL (11.2-15.7); Immature Grans % 1.1; Lymphocytes % 11.2; MCH 31.8 pg (27.0-33.0); MCHC 33.5 % (32.0-36.0); MCV 94.8 fL (80-95); MPV 9.2 fL (8.0-11.0); Neutrophils % 78.1; Nucleated RBC 0 %; Platelet Count 220 10^3/uL (130-400); RBC 3.65 10^6/uL (3.93-5.22); RDW 13.7 % (11.7-14.6); RDW-SD 47.7 fL; WBC 12.12 10^3/uL (4.4-10.8)
--- NOTE | 2021-02-16 14:00 | DI.RAD_ITS ---
Exam(s) XR PORTABLE CHEST AP EXAM: XR PORTABLE CHEST AP CLINICAL HISTORY: Altered mental status. TECHNIQUE: 2D digital imaging was performed. COMPARISON: CR,XR XR PORTABLE CHEST AP from 02/07/2021 FINDINGS: Heart size is normal. The mediastinum is not widened. Lungs are clear. No infiltrates nor obvious pleural effusions. IMPRESSION: No acute pulmonary findings on this single AP portable view of the chest. Brain CT scan today reveals a new left-sided intra-axial hemorrhage. Please refer to that separate r eport. DATA REPOSITORY: RADIATION DOSE DELIVERED: All CT scans at this facility use at least one of these dose optimization techniques: automated exposure control; mA and/or kV adjustment per patient size (includes targeted e xams where dose is matched to clinical indication); or iterative reconstruction.
[2021-02-16 14:17] LABS: ALT 33 U/L (14-59); AST 21 U/L (15-37); Albumin 3.2 g/dL (3.4-5.0); Alkaline Phosphatase 109 U/L (46-116); Anion Gap 8.6 mmol/L (3-11); BUN 13 mg/dL (7-18); Bilirubin, Total 0.6 mg/dL (0.2-1.0); CO2 27.4 mmol/L (21.0-32.0); Calcium 8.8 mg/dL (8.5-10.1); Chloride 99 mmol/L (98-107); Estimated GFR 53.21 (mL/min/1.73m2); Glucose 237 mg/dL (74-106); Magnesium 1.3 mg/dL (1.8-2.4); Potassium 4.1 mmol/L (3.5-5.1); Sodium 135 mmol/L (136-145); Total Protein 7.1 g/dL (6.4-8.2); Troponin I 0.05 ng/mL (<0.06)
[2021-02-16] MEDS: Normal Saline 500 ML IV (14:52)
[2021-02-16] MEDS: MAGNESIUM SULFATE 1 GM/100 ML BAG IVPB (14:52)
[2021-02-16] MEDS: levETIRAcetam 1,000 MG in Normal Saline 100 ML 400 MG IVPB (15:03)
--- NOTE | 2021-02-17 15:09 | NUR.NOTE ---
Stephen , Sharonda's son, called stating he is trying to get on her HIPPA contact. States he wants to talk to a ER MD about his mothers condition and why she was not sent to [facility] or another [facility]. Has not talked with Provider at [facility]. Suggested he talk with her provider to be updated on her condition.-Stephen-phone #[phone]. Nursing Note:
== END 2021-02-16 16:36 | disposition home or self-care (01) ==
PROVIDERS: Emergency Provider Registered Nurse Emergency
DX: I62.9 Nontraumatic intracranial hemorrhage, unspecified (principal); R40.4 Transient alteration of awareness; Z66 Do not resuscitate; R47.01 Aphasia; Z86.73 Personal history of transient ischemic attack (TIA), and cerebral infarction without residual deficits
CPT/HCPCS: 36415; 36416; 80053; 82962; 93005; 96361; 96365; 96368; 99285; 70450; 71045; 81003; 83735; 84484; 85025; 93010; 99284; J1953; J3475